=== PATIENT | male | born 1935 | race Caucasian/White ===

== ENCOUNTER 2017-12-21 13:05 | Emergency (ER) | payer MEDICARE, BC ==
[2017-12-21] MEDS ORDERED: Acetaminophen/HYDROcodone 325-5 MG Tab PO ONE (16:01)
--- NOTE | 2017-12-21 16:12 | EDM.PDOC ---
ED HPI GENERAL MEDICAL PROBLEM - General Chief Complaint: Upper Extremity Injury/Pain Stated Complaint: [facility] Time Seen by Provider: 12/21/17 15:00 Source of Information: Reports: Patient History Limitations: Reports: No Limitations - History of Present Illness INITIAL COMMENTS - FREE TEXT/NARRATIVE: 82-year-old male presents for evaluation and treatment of injury sustained from a fall. Patient arrives via EMS. Reportedly the patient fell down about 2 stairs. Landed on his left side. Is primarily complaining of pain to the left shoulder and left hip. He reports he did not hit his head. No headache, neck pain, chest pain, shortness of breath, abdominal pain, lightheadedness, dizziness or syncope. Reporting decreased range of motion to the left shoulder. Reports pain to the left hip. Has not ambulated on his own since the fall. Patient takes an 81mg aspirin daily. No other blood thinners. Onset: Today Location: Reports: Pelvis (left), Upper Extremity, Left Left Shoulder Pain Score (Numeric/FACES): 5 - Related Data Allergies Allergy/AdvReac Type Severity Reaction Status Date / Time morphine Allergy Cannot Verified 12/21/17 13:15 Remember Llkpxka-Acr-Nvq Reductase Allergy Muscle Verified 12/21/17 13:15 Inhibitor Aches Home Meds: Home Meds Acetaminophen/HYDROcodone [[place] 325-5 MG] 1 tab PO Q6H PRN #20 tablet 12/21/17 [Rx] Social & Family History - Caffeine Use Caffeine Use: Reports: Coffee Review of Systems - Review of Systems Review Of Systems: See Below Ears: Denies: Dizziness Respiratory: Denies: Shortness of Breath Cardiovascular: Denies: Chest Pain GI/Abdominal: Denies: Abdominal Pain, Nausea, Vomiting Musculoskeletal: Reports: Shoulder Pain (left), Other (left hip pain). Denies: Neck Pain, Back Pain Neurological: Denies: Headache, Syncope ED EXAM, GENERAL - Physical Exam Exam: See Below Exam Limited By: No Limitations General Appearance: Alert, WD/WN, No Apparent Distress Eye Exam: Bilateral Eye: EOMI, Normal Inspection, PERRL Ears: Normal External Exam Nose: Normal Inspection, No Blood Throat/Mouth: Normal Inspection, Normal Lips, Normal Oropharynx, Normal Voice, No Airway Compromise Head: Atraumatic, Normocephalic Neck: Normal Inspection, Supple, Non-Tender, Full Range of Motion Respiratory/Chest: No Respiratory Distress, Lungs Clear, Normal Breath Sounds, Chest Non-Tender Cardiovascular: Normal Peripheral Pulses, Regular Rate, Rhythm, No Murmur Peripheral Pulses: 2+: Radial (L), Radial (R) GI/Abdominal: Soft, Non-Tender Back Exam: Normal Inspection Extremities: Normal Range of Motion (reduced ROM to the left shuolder; ROM testing deferred due to pain; able to rotate hips without discomfort, no shortenindo the legs) Neurological: Alert, Oriented, Normal Cognition Psychiatric: Normal Affect, Normal Mood Skin Exam: Warm, Dry, Normal Color Course - Vital Signs Last Recorded V/S: Last Vital Signs Temp 97.4 F 12/21/17 13:13 Pulse 57 L 12/21/17 13:13 Resp 16 12/21/17 13:13 BP 125/95 H 12/21/17 13:13 Pulse Ox 96 12/21/17 13:13 - Orders/Labs/Meds Meds: Medications Discontinued Medications Generic Name Dose Route Start Last Admin Trade Name Dillan PRN Reason Stop Dose Admin Hydrocodone Bitart/Acetaminophen 1 tab 12/21/17 16:01 12/21/17 16:10 [place] 325-5 Mg PO 12/21/17 16:02 1 tab ONETIME ONE Administration - Radiology Interpretation Free Text/Narrative:: Head CT Technique: Multiple axial sections through the brain were obtained. Intravenous contrast was not utilized. Comparison: Previous head CT study of 10/18/11. Findings: Low density noted within both frontal regions slightly more prominent on the left side. Ventricles along with basal cisterns and sulci over convexities are mildly prominent. Ventricles are enlarged out of proportion to the sulci which is felt compatible with greater central atrophy. Mild diminished density is noted within portions of the periventricular white matter. No other abnormal parenchymal density is seen. No evidence of intracranial hemorrhage. No midline shift or mass effect is seen. No acute calvarial abnormality is seen. Previous jose hole is noted within the left calvarium. Impression: 1. Areas of low density within both frontal lobes which is an interval change from prior study either due to previous interval infarcts or previous trauma. 2. Generalized atrophy with greater central component. 3. Other senescent change as noted above. 4. No acute intracranial abnormality is identified. Pelvis and left hip: AP view of pelvis was obtained as well as a peak and frog- leg lateral views of the left hip. Joint space within the right hip is slightly narrowed. Joint space within the left hip is preserved. Degenerative change is partially seen within lumbar spine. Sacroiliac joints appear unremarkable. No fracture or other abnormality is seen. Impression: 1. Degenerative change as noted above. 2. Nothing acute is appreciated. Left shoulder: 3 views of left shoulder were obtained. Comparison: No prior shoulder exam. Humeral head is elevated compatible with chronic rotator cuff tear. Inferior spurring is seen off the humeral head. Inferior spurring is noted off the distal clavicle. Nothing acute is seen. Impression: 1. Degenerative change and chronic rotator cuff tear. 2. Nothing acute is seen. - Re-Assessments/Exams Free Text/Narrative Re-Assessment/Exam: 12/21/17 16:36 Reviewed the imaging with the patient. Likely has a rotator cuff tear. Recommend follow-up with ortho for further evaluation. May require an MRI for further evaluation. In the meantime will put in a sling and given medication for pain. Discharge instructions as documented. Departure - Departure Time of Disposition: 16:41 Disposition: Home, Self-Care 01 Condition: Fair Clinical Impression: Rotator cuff tear - Discharge Information *PRESCRIPTION DRUG MONITORING PROGRAM REVIEWED*: No *COPY OF PRESCRIPTION DRUG MONITORING REPORT IN PATIENT EMMETT: No Prescriptions: Acetaminophen/HYDROcodone [[place] 325-5 MG] 1 tab PO Q6H PRN #20 tablet PRN Reason: Pain Instructions: Rotator Cuff Tear Referrals: PCP,None [Ordering Only Provider] - Ezra Del Toro MD [Physician] - Forms: ED Department Discharge Additional Instructions: you were given medication in the ER that can affect your ability to drive and operate machinery. Do not drive or operate machinery within 12 hours of taking prescription narcotic pain medication. Wear the sling at all times. Remove your arm from the sling 3 or 4 times a day and perform pendulum arm circles to prevent frozen shoulder. Ice the shoulder 3 or 4 times a day for 15-20 minutes. You may take [id number] ibuprofen as needed for pain relief. For severe pain may take [place] one tablet every 6 hours. [place] is habit-forming, take as few these as needed to control your pain. Do not drive or operate machinery within 12 hours of taking [place]. Follow-up with Dr. Del Toro. Call [phone] to schedule with him. Please let them know you likely of a rotator cuff tear. Please return to the ER if your symptoms change or worsen.
--- NOTE | 2017-12-21 17:25 | CT ---
Head CT Technique: Multiple axial sections through the brain were obtained. Intravenous contrast was not utilized. Comparison: Previous head CT study of 10/18/11. Findings: Low density is noted within both frontal regions slightly more prominent on the left side. Ventricles along with basal cisterns and sulci over convexities are mildly prominent. Ventricles are enlarged out of proportion to the sulci which is felt compatible with greater central atrophy. Mild diminished density is noted within portions of the periventricular white matter. No other abnormal parenchymal density is seen. No evidence of intracranial hemorrhage. No midline shift or mass effect is seen. No acute calvarial abnormality is seen. Previous jose hole is noted within the left calvarium. Impression: 1. Areas of low density within both frontal lobes which is an interval change from prior study either due to previous interval infarcts or previous trauma. 2. Generalized atrophy with greater central component. 3. Other senescent change as noted above. 4. No acute intracranial abnormality is identified. Diagnostic code #2
--- NOTE | 2017-12-22 07:32 | CR ---
Left shoulder: Three views of left shoulder were obtained. Comparison: No prior shoulder exam. Humeral head is elevated compatible with chronic rotator cuff tear. Inferior spurring is seen off the humeral head. Inferior spurring is noted off the distal clavicle. Nothing acute is seen. Impression: 1. Degenerative change and chronic rotator cuff tear. 2. Nothing acute is seen. Diagnostic code #3
--- NOTE | 2017-12-22 07:32 | CR ---
Pelvis and left hip: AP view of pelvis was obtained as well as a peak and frog-leg lateral views of the left hip. Joint space within the right hip is slightly narrowed. Joint space within the left hip is preserved. Degenerative change is partially seen within lumbar spine. Sacroiliac joints appear unremarkable. No fracture or other abnormality is seen. Impression: 1. Degenerative change as noted above. 2. Nothing acute is appreciated. Diagnostic code #2
== END 2017-12-21 16:56 | disposition home or self-care (01) ==
LOC: JD.ED 13:05
DX: S46.012A Strain of muscle(s) and tendon(s) of the rotator cuff of left shoulder, initial encounter (principal); Z88.5 Allergy status to narcotic agent; Z88.8 Allergy status to other drugs, medicaments and biological substances; W10.9XXA Fall (on) (from) unspecified stairs and steps, initial encounter
CPT/HCPCS: 70450; 73030; 73502; 99284; A9270

== ENCOUNTER 2020-03-19 06:06 | Inpatient (IN) | payer BC, MEDICARE ==
--- NOTE | 2020-03-19 07:14 | EDM.PDOC ---
<Pablito Mcclure - Last Filed: 03/19/20 09:50> ED HPI GENERAL MEDICAL PROBLEM - General Chief Complaint: General Stated Complaint: [facility] Time Seen by Provider: 03/19/20 06:37 - Related Data Allergies Allergy/AdvReac Type Severity Reaction Status Date / Time morphine Allergy Cannot Verified 03/19/20 06:14 Remember [id number] Reductase AdvReac Muscle Verified 03/19/20 12:38 Inhibitor Aches Home Meds: Home Meds Aspirin [[place]one Aspirin] 81 mg PO DAILY 03/19/20 [History] Docusate Sodium [Stool Softener] 100 mg PO BID 03/19/20 [History] Ezetimibe 10 mg PO DAILY 03/19/20 [History] Fenofibrate Nanocrystallized [Fenofibrate] 145 mg PO DAILY 03/19/20 [History] Fluticasone Propionate [Flonase] 50 mcg NS DAILY 03/19/20 [History] Isosorbide Mononitrate 20 mg PO BID 03/19/20 [History] Levothyroxine 112 mcg PO DAILY 03/19/20 [History] Olmesartan Medoxomil 20 mg PO DAILY 03/19/20 [History] Propylene Glycol/PEG 400/Pf [Systane 0.3-0.4% Eye Drop] 1 drop EYEBOTH DAILY 03/19/20 [History] Tamsulosin [Flomax] 0.4 mg PO DAILY 03/19/20 [History] buPROPion HCL [Bupropion HCl Sr] 150 mg PO DAILY 03/19/20 [History] Course - Re-Assessments/Exams Free Text/Narrative Re-Assessment/Exam: 03/19/20 09:[address] Wayne. His CT of his head shows chronic age related and remote ischemic changes but no evidence of acute intracranial pathology. His CXR shows no evidence of acute pulmonary process. His CBC looks good. His D- dimer is elevated at 2.1. His anion gap is elevated at 15.1. His glucose is 127. His troponin is negative. His TSH is normal. His UA shows no UTI. I have ordered a CT angio of his chest. 03/19/20 09:[address] angio of his chest shows no PE and nothing else acute. He needed 2 person assist to get up. He cannot go home like this. He will need to be admitted. I called Dr Ortiz and he agreed to the admission. Departure - Departure Time of Disposition: 09:55 Disposition: Admitted As Inpatient 65 Condition: Fair Clinical Impression: Generalized weakness Falls Qualifiers: Encounter type: initial encounter Qualified Code(s): W19.XXXA - Unspecified fall, initial encounter - Discharge Information <Jewel Wayne - Last Filed: 03/19/20 19:00> ED HPI GENERAL MEDICAL PROBLEM - General Source of Information: Reports: Patient History Limitations: Reports: Physical Impairment (Not entirely sure of his medical issues) - History of Present Illness INITIAL COMMENTS - FREE TEXT/NARRATIVE: Mr. Caldwell is a very pleasant 84-year-old gentleman who is now brought to the ED by EMS with a complaint of increased generalized weakness and multiple falls over the past week. No injury, and the patient denies having any pain. He is not completely aware of his past medical history, referring some questions to his , however, unfortunately, his is not here. The patient states that he has not been taking his Lasix regularly for about a year. He believes that the last time he took it was more than a week ago. Here in the ED, the patient is found to be hemodynamically stable, afebrile, saturating 94% on room air. Orthostatics obtained at triage are negative. The patient reports an occasional dry cough, but otherwise he denies having a recent fever, chills, sore throat, ear pain, nasal or sinus congestion, dyspnea, chest pain, palpitations, nausea, vomiting, constipation, diarrhea, abdominal pain, urinary symptoms, recent weight gain or weight loss, recent bloody bowel movements or black bowel movements, recent joint aches, headaches, or rashes. The patient's PCP is Dr. Krista Larose. His Cardiovascular Surgeon is Dr. Stevenson Parmar. Past Medical History HEENT History: Reports: Impaired Vision Cardiovascular History: Reports: Aneurysm (cerebral - inoperable), CAD, Heart Failure, High Cholesterol, Hypertension, LA (x 1) Respiratory History: Reports: COPD (PFT-proven, untreated) Genitourinary History: Reports: BPH Psychiatric History: Reports: Depression Endocrine/Metabolic History: Reports: Hypothyroidism, Other (See Below) (Pre- diabetes) - Past Surgical History HEENT Surgical History: Reports: Cataract Surgery (bilateral), Oral Surgery (dental extractions) Cardiovascular Surgical History: Reports: Coronary Artery Bypass (x 2 vessel, around 1999), Pacer (2019) Musculoskeletal Surgical History: Reports: Shoulder Surgery (right, open) Social & Family History - Tobacco Use Smoking Status *Q: Former Smoker Years of Tobacco use: 10 Packs/Tins Daily: 1 Month/Year Tobacco Last Used: Quit 1957 - Caffeine Use Caffeine Use: Reports: Coffee - Alcohol Use Alcohol Use History: Yes Alcohol Use Frequency: Socially - Recreational Drug Use Recreational Drug Use: No - Living Situation & Occupation Living situation: Reports: , with Spouse Occupation: Retired ED ROS GENERAL - Review of Systems Review Of Systems: Comprehensive ROS is negative, except as noted in HPI. ED EXAM, GENERAL - Physical Exam Exam: See Below Exam Limited By: Physical Impairment (some confusion in following neuro exam instructions) General Appearance: Alert, WD/WN, No Apparent Distress Eye Exam: Bilateral Eye: EOMI, Normal Inspection (s/p cataract surgery) Ears: Normal External Exam, Hearing Loss (mild) Nose: Normal Inspection Throat/Mouth: Normal Inspection, Normal Lips, Normal Voice, No Airway Compromise Head: Atraumatic, Normocephalic Neck: Normal Inspection, Full Range of Motion Respiratory/Chest: No Respiratory Distress, Lungs Clear, Normal Breath Sounds, No Accessory Muscle Use Cardiovascular: Normal Peripheral Pulses, Regular Rate, Rhythm, No Edema, No Gallop, No JVD, No Murmur, No Rub Peripheral Pulses: 3+: Radial (L), Radial (R) GI/Abdominal: Normal Bowel Sounds, Soft, Non-Tender, No Organomegaly, No Distention, No Abnormal Bruit, No Mass Back Exam: Normal Inspection, Full Range of Motion, NT Extremities: Normal Range of Motion, Normal Capillary Refill, Other (Hyperpigmentation of both legs, distant with chronic venous stasis changes, but no current edema) Neurological: Alert, Oriented, CN II-XII Intact, No Motor/Sensory Deficits (mild generalized non-focal weakness), Confused (mild) Psychiatric: Normal Affect Skin Exam: Warm, Dry, Intact, Normal Color, No Rash EKG INTERPRETATION EKG Date: 03/19/20 Time: 06:27 Rhythm: Other (A-V paced) Rate (Beats/Min): 62 Comparison: NA - No Prior EKG Course - Vital Signs Last Recorded V/S: Last Vital Signs Temp 36.7 C 03/19/20 11:43 Pulse 62 03/19/20 11:43 Resp 18 03/19/20 11:43 BP 132/61 03/19/20 11:43 Pulse Ox 97 03/19/20 11:43 Orthostatic Blood Pressure [ 80/51 Standing] Orthostatic Blood Pressure [ 97/58 Supine] - Orders/Labs/Meds Orders: Active Orders 24 hr Category Date Time Status Ang Chest [CT] Stat Exams 03/19/20 08:51 Taken Chest 2V [CR] Stat Exams 03/19/20 07:05 Taken Head wo Cont [CT] Stat Exams 03/19/20 07:04 Taken CULTURE BLOOD [BC] Stat Lab 03/19/20 07:39 Received CULTURE BLOOD [BC] Stat Lab 03/19/20 07:49 Received Sodium Chloride 0.9% [Saline Flush] Med 03/19/20 08:55 Active 10 ml FLUSH ONETIME PRN Blood Culture x2 Reflex Set [OM.PC] Stat Oth 03/19/20 07:08 Ordered Medication Orders Acetaminophen (Tylenol) 650 mg PO Q4H PRN PRN Reason: Pain (Mild 1-3)/fever Artificial Tears (Refresh Liquigel 1%) 0 ml EYEBOTH DAILY [facility] Aspirin (Aspirin) 81 mg PO DAILY [facility] Bupropion HCl (Wellbutrin Sr) 150 mg PO DAILY [facility] Docusate Sodium (Colace) 100 mg PO BID [facility] Ezetimibe (Zetia) 10 mg PO DAILY [facility] Enoxaparin Sodium (Lovenox) 40 mg SUBCUT DAILY [facility] Fenofibrate (Tricor) 145 mg PO DAILY [facility] Fluticasone Propionate (Flonase) 0 gm NASBOTH DAILY [facility] Levothyroxine Sodium (Levothyroxine) 112 mcg PO ACBREAKFAST [facility] Losartan Potassium (Cozaar) 50 mg PO DAILY [facility] Ondansetron HCl (Zofran) 4 mg IV Q6H PRN PRN Reason: Nausea/Vomiting Isosorbide (Mononitrate 20 Mg) 0 each PO BID [facility] Sodium Chloride (Saline Flush) 10 ml FLUSH ONETIME PRN PRN Reason: IV FLUSH Last Admin: 03/19/20 09:02 Dose: 10 ml Documented by: IVY Tamsulosin HCl (Flomax) 0.4 mg PO DAILY [facility] Labs: Laboratory Tests 03/19/20 03/19/20 03/19/20 Range/Units 06:35 06:35 07:39 WBC 6.16 (4.23-9.07) K/mm3 RBC 5.21 (4.63-6.08) M/mm3 Hgb 15.0 (13.7-17.5) gm/dl Hct 45.5 (40.1-51.0) % MCV 87.3 (79.0-92.2) fl MCH 28.8 (25.7-32.2) pg MCHC 33.0 (32.2-35.5) g/dl RDW Std Deviation 46.5 H (35.1-43.9) fL Plt Count 170 (163-337) K/mm3 MPV 8.9 L (9.4-12.3) fl Neutrophils % (Manual) 63 H (40-60) % Band Neutrophils % 0 (0-10) % Lymphocytes % (Manual) 25 (20-40) % Atypical Lymphs % 0 % Monocytes % (Manual) 11 H (2-10) % Eosinophils % (Manual) 1 (0.8-7.0) % Basophils % (Manual) 0 L (0.2-1.2) Platelet Estimate Adequate RBC Morph Comment Normal D-Dimer, Quantitative (0.19-0.50) mg/L Sodium (136-145) mEq/L Potassium (3.5-5.1) mEq/L Chloride (98-107) mEq/L Carbon Dioxide (21-32) mEq/L Anion Gap (5-15) BUN (7-18) mg/dL Creatinine (0.7-1.3) mg/dL Est Cr Clr Drug Dosing Estimated GFR (MDRD) (>60) mL/min BUN/Creatinine Ratio (14-18) Glucose (83-115) mg/dL Hemoglobin A1c (4.50-6.20) % Calcium (8.5-10.1) mg/dL Phosphorus 3.0 (2.6-4.7) mg/dL Magnesium (1.8-2.4) mg/dl Total Bilirubin (0.2-1.0) mg/dL AST (15-37) U/L ALT (16-63) U/L Alkaline Phosphatase (46-116) U/L Troponin I (0.00-0.056) ng/mL C-Reactive Protein 0.4 (<1.0) mg/dL Total Protein (6.4-8.2) g/dl Albumin (3.4-5.0) g/dl Globulin gm/dL Albumin/Globulin Ratio (1-2) Vitamin B12 334 (193-986) pg/ml Vitamin D 25-Hydroxy 27.9 L (30.0-100.0) ng/ml Folate 20.8 (8.6-58.9) ng/mL TSH 3rd Generation (0.358-3.74) uIU/mL Urine Color (Yellow) Urine Appearance (Clear) Urine pH (5.0-8.0) Ur Specific Hallock (1.005-1.030) Urine Protein (Negative) Urine Glucose (UA) (Negative) Urine Ketones (Negative) Urine Occult Blood (Negative) Urine Nitrite (Negative) Urine Bilirubin (Negative) Urine Urobilinogen (0.2-1.0) Ur Leukocyte Esterase (Negative) Urine RBC (0-5) /hpf Urine WBC (0-5) /hpf Ur Squamous Epith Cells (0-5) /hpf Urine Bacteria (FEW) /hpf Urine Mucus (FEW) /hpf SARS-CoV-2 RNA (OSMAR) (NEGATIVE) 03/19/20 03/19/20 03/19/20 Range/Units 07:39 07:39 07:39 WBC (4.23-9.07) K/mm3 RBC (4.63-6.08) M/mm3 Hgb (13.7-17.5) gm/dl Hct (40.1-51.0) % MCV (79.0-92.2) fl MCH (25.7-32.2) pg MCHC (32.2-35.5) g/dl RDW Std Deviation (35.1-43.9) fL Plt Count (163-337) K/mm3 MPV (9.4-12.3) fl Neutrophils % (Manual) (40-60) % Band Neutrophils % (0-10) % Lymphocytes % (Manual) (20-40) % Atypical Lymphs % % Monocytes % (Manual) (2-10) % Eosinophils % (Manual) (0.8-7.0) % Basophils % (Manual) (0.2-1.2) Platelet Estimate RBC Morph Comment D-Dimer, Quantitative 2.10 H (0.19-0.50) mg/L Sodium 136 (136-145) mEq/L Potassium 4.1 (3.5-5.1) mEq/L Chloride 102 (98-107) mEq/L Carbon Dioxide 23 (21-32) mEq/L Anion Gap 15.1 H (5-15) BUN 18 (7-18) mg/dL Creatinine 1.3 (0.7-1.3) mg/dL Est Cr Clr Drug Dosing TNP Estimated GFR (MDRD) 52 (>60) mL/min BUN/Creatinine Ratio 13.8 L (14-18) Glucose 127 H (83-115) mg/dL Hemoglobin A1c 6.00 (4.50-6.20) % Calcium 9.8 (8.5-10.1) mg/dL Phosphorus (2.6-4.7) mg/dL Magnesium 2.0 (1.8-2.4) mg/dl Total Bilirubin 0.8 (0.2-1.0) mg/dL AST 27 (15-37) U/L ALT 24 (16-63) U/L Alkaline Phosphatase 57 (46-116) U/L Troponin I 0.055 (0.00-0.056) ng/mL C-Reactive Protein (<1.0) mg/dL Total Protein 6.9 (6.4-8.2) g/dl Albumin 3.5 (3.4-5.0) g/dl Globulin 3.4 gm/dL Albumin/Globulin Ratio 1.0 (1-2) Vitamin B12 (193-986) pg/ml Vitamin D 25-Hydroxy (30.0-100.0) ng/ml Folate (8.6-58.9) ng/mL TSH 3rd Generation 1.778 (0.358-3.74) uIU/mL Urine Color (Yellow) Urine Appearance (Clear) Urine pH (5.0-8.0) Ur Specific Hallock (1.005-1.030) Urine Protein (Negative) Urine Glucose (UA) (Negative) Urine Ketones (Negative) Urine Occult Blood (Negative) Urine Nitrite (Negative) Urine Bilirubin (Negative) Urine Urobilinogen (0.2-1.0) Ur Leukocyte Esterase (Negative) Urine RBC (0-5) /hpf Urine WBC (0-5) /hpf Ur Squamous Epith Cells (0-5) /hpf Urine Bacteria (FEW) /hpf Urine Mucus (FEW) /hpf SARS-CoV-2 RNA (OSMAR) (NEGATIVE) 03/19/20 03/19/20 Range/Units 08:15 08:30 WBC (4.23-9.07) K/mm3 RBC (4.63-6.08) M/mm3 Hgb (13.7-17.5) gm/dl Hct (40.1-51.0) % MCV (79.0-92.2) fl MCH (25.7-32.2) pg MCHC (32.2-35.5) g/dl RDW Std Deviation (35.1-43.9) fL Plt Count (163-337) K/mm3 MPV (9.4-12.3) fl Neutrophils % (Manual) (40-60) % Band Neutrophils % (0-10) % Lymphocytes % (Manual) (20-40) % Atypical Lymphs % % Monocytes % (Manual) (2-10) % Eosinophils % (Manual) (0.8-7.0) % Basophils % (Manual) (0.2-1.2) Platelet Estimate RBC Morph Comment D-Dimer, Quantitative (0.19-0.50) mg/L Sodium (136-145) mEq/L Potassium (3.5-5.1) mEq/L Chloride (98-107) mEq/L Carbon Dioxide (21-32) mEq/L Anion Gap (5-15) BUN (7-18) mg/dL Creatinine (0.7-1.3) mg/dL Est Cr Clr Drug Dosing Estimated GFR (MDRD) (>60) mL/min BUN/Creatinine Ratio (14-18) Glucose (83-115) mg/dL Hemoglobin A1c (4.50-6.20) % Calcium (8.5-10.1) mg/dL Phosphorus (2.6-4.7) mg/dL Magnesium (1.8-2.4) mg/dl Total Bilirubin (0.2-1.0) mg/dL AST (15-37) U/L ALT (16-63) U/L Alkaline Phosphatase (46-116) U/L Troponin I (0.00-0.056) ng/mL C-Reactive Protein (<1.0) mg/dL Total Protein (6.4-8.2) g/dl Albumin (3.4-5.0) g/dl Globulin gm/dL Albumin/Globulin Ratio (1-2) Vitamin B12 (193-986) pg/ml Vitamin D 25-Hydroxy (30.0-100.0) ng/ml Folate (8.6-58.9) ng/mL TSH 3rd Generation (0.358-3.74) uIU/mL Urine Color Yellow (Yellow) Urine Appearance Clear (Clear) Urine pH 6.0 (5.0-8.0) Ur Specific Hallock 1.025 (1.005-1.030) Urine Protein Negative (Negative) Urine Glucose (UA) Negative (Negative) Urine Ketones Negative (Negative) Urine Occult Blood Negative (Negative) Urine Nitrite Negative (Negative) Urine Bilirubin Negative (Negative) Urine Urobilinogen 0.2 (0.2-1.0) Ur Leukocyte Esterase Negative (Negative) Urine RBC 0-5 (0-5) /hpf Urine WBC 0-5 (0-5) /hpf Ur Squamous Epith Cells 0-5 (0-5) /hpf Urine Bacteria Few (FEW) /hpf Urine Mucus Few (FEW) /hpf SARS-CoV-2 RNA (OSMAR) Negative (NEGATIVE) Meds: Medications Generic Name Dose Route Start Last Admin Trade Name Freq PRN Reason Stop Dose Admin Acetaminophen 650 mg 03/19/20 10:52 Tylenol PO Q4H PRN Pain (Mild 1-3)/fever Artificial Tears 0 ml 03/20/20 09:00 Refresh Liquigel 1% EYEBOTH DAILY [facility] Aspirin 81 mg 03/20/20 09:00 Aspirin PO DAILY [facility] Bupropion HCl 150 mg 03/20/20 09:00 Wellbutrin Sr PO DAILY [facility] Docusate Sodium 100 mg 03/19/20 21:00 Colace PO BID [facility] Ezetimibe 10 mg 03/20/20 09:00 Zetia PO DAILY [facility] Enoxaparin Sodium 40 mg 03/20/20 09:00 Lovenox SUBCUT DAILY [facility] Fenofibrate 145 mg 03/20/20 09:00 Tricor PO DAILY [facility] Fluticasone Propionate 0 gm 03/20/20 09:00 Flonase NASBOTH DAILY [facility] Levothyroxine Sodium 112 mcg 03/20/20 06:00 Levothyroxine PO ACBREAKFAST [facility] Losartan Potassium 50 mg 03/20/20 09:00 Cozaar PO DAILY [facility] Ondansetron HCl 4 mg 03/19/20 10:52 Zofran IV Q6H PRN Nausea/Vomiting Isosorbide 0 each 03/19/20 21:00 Mononitrate 20 Mg PO BID [facility] Sodium Chloride 10 ml 03/19/20 08:55 03/19/20 09:02 Saline Flush FLUSH 10 ml ONETIME PRN Administration IV FLUSH Tamsulosin HCl 0.4 mg 03/20/20 09:00 Flomax PO DAILY [facility] Discontinued Medications Generic Name Dose Route Start Last Admin Trade Name Freq PRN Reason Stop Dose Admin Sodium Chloride 100 mls @ 75 mls/hr 03/19/20 09:00 03/19/20 09:02 Normal Saline IV 75 mls/hr ASDIRECTED [facility] Administration Iopamidol 50 ml 03/19/20 08:55 03/19/20 09:02 Isovue-370 (76%) IVPUSH 03/19/20 08:56 50 ml ONETIME ONE Administration Iopamidol 100 ml 03/19/20 08:55 03/19/20 09:02 Isovue-370 (76%) IVPUSH 03/19/20 08:56 100 ml ONETIME ONE Administration - Re-Assessments/Exams Free Text/Narrative Re-Assessment/Exam: 03/19/20 07:10 As above, the patient has been experiencing increased generalized weakness and multiple falls without injury over the past week. No recent fever, chest pain, dyspnea, abdominal pain, or urinary symptoms. He is hemodynamically stable, afe brile, saturating 94% on room air here in the ED. Orthostatics at triage were negative. An ECG at triage finds a dual chamber pacer, and is otherwise uninterpretable. On physical exam, the patient has some confusion in following his neurologic exam, and while he does have some generalized weakness, there are no focal neurologic weaknesses. His exam is otherwise unremarkable. I have ordered a work-up that include blood work, 2 sets of blood cultures, a urinalysis with postvoid bladder scan, a chest x-ray, a CT of the head without contrast, and a swab for the SARS-CoV-2 virus. 03/19/20 07:[address] Mcclure, and care of the patient turned over to him at this time, for change of shift. Departure - Discharge Information *PRESCRIPTION DRUG MONITORING PROGRAM REVIEWED*: Not Applicable *COPY OF PRESCRIPTION DRUG MONITORING REPORT IN PATIENT EMMETT: Not Applicable Sepsis Event Note (ED) - Evaluation Sepsis Screening Result: No Definite Risk - My Orders Last 24 Hours: My Active Orders 03/19/20 07:04 Head wo Cont [CT] Stat 03/19/20 07:05 Chest 2V [CR] Stat 03/19/20 07:08 Blood Culture x2 Reflex Set [OM.PC] Stat 03/19/20 07:39 CULTURE BLOOD [BC] Stat 03/19/20 07:49 CULTURE BLOOD [BC] Stat 03/19/20 08:55 Sodium Chloride 0.9% [Saline Flush] 10 ml FLUSH ONETIME PRN - Assessment/Plan Last 24 Hours: My Active Orders 03/19/20 07:04 Head wo Cont [CT] Stat 03/19/20 07:05 Chest 2V [CR] Stat 03/19/20 07:08 Blood Culture x2 Reflex Set [OM.PC] Stat 03/19/20 07:39 CULTURE BLOOD [BC] Stat 03/19/20 07:49 CULTURE BLOOD [BC] Stat 03/19/20 08:55 Sodium Chloride 0.9% [Saline Flush] 10 ml FLUSH ONETIME PRN
[2020-03-19] MEDS ORDERED: Sodium Chloride 0.9% 10 ML Syringe FLUSH PRN (08:55)
[2020-03-19] MEDS ORDERED: Iopamidol 755 Mg/ML 100 ML Bottle IVPUSH ONE (08:55)
[2020-03-19] MEDS ORDERED: Iopamidol 755 MG/ML 50 ML Bottle IVPUSH ONE (08:55)
[2020-03-19] MEDS ORDERED: Sodium Chloride 0.9% 100 ML IV SCH (09:00)
[2020-03-19] MEDS ORDERED: Ondansetron 4 MG/2 ML SDV IV PRN (10:52)
--- NOTE | 2020-03-19 10:56 | PCM.HP.2 ---
H&P History of Present Illness - General Date of Service: 03/19/20 Admit Problem/Dx: Admission Diagnosis/Problem Admission Diagnosis/Problem Failure to thrive Source of Information: Patient, Provider, RN, RN Notes Reviewed, Significant Other History Limitations: Reports: No Limitations - History of Present Illness Initial Comments - Free Text/Narative: Patient is an 84 yo male who presented to our ED on 03/19/2020 via ambulance with increasing generalized weakness and multiple falls. He denies any injuries due to these falls or any pain. He is a poor historian and does admit that he has not been taking his medications as he should. In the ED he is hemodynamically stable, afebrile, and saturations are 94% on room air. Orthostatics are obtained and are negative. He does report an occasional dry cough but otherwise denies any recent fever, chills, sore throat, ear pain, congestion, dyspnea, chest pain, palpitations, nausea, vomiting constipation, diarrhea, abdominal pain, urinary symptoms, recent weight gain or weight loss, recent hematochezia, recent melena, joint aches, headaches, or rashes. In the ED twelve-lead EKG is obtained showing AV paced rhythm at 62 bpm. Patient reports that he recently had his pacemaker placed. He is afebrile at 97.7 Fahrenheit. Pulse 65. Respirations 16. Blood pressure 112/73. Pulse ox 94%. CBC is obtained and is grossly normal, CMP is obtained and is grossly normal. Troponin is negative at 0.055. TSH is 1.778. UA is negative. SARS-CoV-2 screen is negative. Blood cultures obtained and are pending. He started on NS at 75 mils an hour. D-dimer is obtained and is elevated at 2.1. PA of the chest is obtained and shows no PA and nothing acute. Attempted to get the patient up and he was requiring 2 people to assist. It is felt he will need to be placed for SNF care. He carries a history of impaired vision ( reports he is legally blind) inoperable cerebral aneurysm, CAD, CHF, HLD, hypertension, prior OR, untreated COPD, BPH, depression, hypothyroidism, "prediabetes". He is a prior smoker. His PCP is Dr. Larose. His cardiovascular surgeon is Dr. Parmar. - Related Data Allergies/Adverse Reactions: Allergies Allergy/AdvReac Type Severity Reaction Status Date / Time morphine Allergy Cannot Verified 03/19/20 06:14 Remember Vvpittl-Acv-Vnt Reductase AdvReac Muscle Verified 03/19/20 12:38 Inhibitor Aches Home Medications: Home Meds Aspirin [Butler Aspirin] 81 mg PO DAILY 03/19/20 [History] Docusate Sodium [Stool Softener] 100 mg PO BID 03/19/20 [History] Ezetimibe 10 mg PO DAILY 03/19/20 [History] Fenofibrate Nanocrystallized [Fenofibrate] 145 mg PO DAILY 03/19/20 [History] Fluticasone Propionate [Flonase] 50 mcg NS DAILY 03/19/20 [History] Isosorbide Mononitrate 20 mg PO BID 03/19/20 [History] Levothyroxine 112 mcg PO DAILY 03/19/20 [History] Olmesartan Medoxomil 20 mg PO DAILY 03/19/20 [History] Propylene Glycol/PEG 400/Pf [Systane 0.3-0.4% Eye Drop] 1 drop EYEBOTH DAILY 03/19/20 [History] Tamsulosin [Flomax] 0.4 mg PO DAILY 03/19/20 [History] buPROPion HCL [Bupropion HCl Sr] 150 mg PO DAILY 03/19/20 [History] Past Medical History HEENT History: Reports: Impaired Vision Other HEENT History: dry eyes Cardiovascular History: Reports: Aneurysm (cerebral - inoperable), CAD, Heart Failure, High Cholesterol, Hypertension, OR (x 1) Respiratory History: Reports: COPD (PFT-proven, untreated) Genitourinary History: Reports: BPH Psychiatric History: Reports: Depression Endocrine/Metabolic History: Reports: Hypothyroidism, Other (See Below) (Pre- diabetes) - Past Surgical History HEENT Surgical History: Reports: Cataract Surgery (bilateral), Oral Surgery (dental extractions) Cardiovascular Surgical History: Reports: Coronary Artery Bypass (x 2 vessel, around 1999), Pacer (2019) Musculoskeletal Surgical History: Reports: Shoulder Surgery (right, open) Social & Family History - Tobacco Use Smoking Status *Q: Former Smoker Years of Tobacco use: 10 Packs/Tins Daily: 1 Used Tobacco, but Quit: Yes Month/Year Tobacco Last Used: Quit 1957 - Caffeine Use Caffeine Use: Reports: Coffee - Recreational Drug Use Recreational Drug Use: No - Living Situation & Occupation Living situation: Reports: , with Spouse Occupation: Retired H&P Review of Systems - Review of Systems: Review Of Systems: See Below General: Reports: Weakness. Denies: Fever, Chills, Malaise, Fatigue HEENT: Reports: No Symptoms. Denies: Headaches, Sore Throat Pulmonary: Reports: Cough (occasional ). Denies: Shortness of Breath, Wheezing, Pleuritic Chest Pain, Sputum Cardiovascular: Reports: No Symptoms. Denies: Chest Pain, Palpitations, Dyspnea on Exertion, Orthopnea, Edema Gastrointestinal: Reports: No Symptoms. Denies: Abdominal Pain, Constipation, Diarrhea, Nausea, Vomiting Genitourinary: Reports: No Symptoms. Denies: Pain Musculoskeletal: Reports: No Symptoms Skin: Reports: No Symptoms. Denies: Cyanosis Psychiatric: Reports: Confusion (Has some difficulty with memory and recent events ) Neurological: Reports: Difficulty Walking, Gait Disturbance. Denies: Dizziness, Headache, Numbness, Paresthesia, Seizure, Syncope, Tingling, Tremors, Trouble Speaking, Weakness, Change in Speech Hematologic/Lymphatic: Reports: No Symptoms Immunologic: Reports: No Symptoms Exam - Exam Exam: See Below - Vital Signs Vital Signs: Last Vital Signs Temp 97.7 F 03/19/20 06:11 Pulse 65 03/19/20 06:11 Resp 16 03/19/20 06:11 BP 112/73 03/19/20 06:11 Pulse Ox 94 L 03/19/20 06:11 Weight: 235 lb - Exam Quality Assessment: DVT Prophylaxis. No: Supplemental Oxygen, Urinary Catheter General: Alert, Oriented (mostly ), Cooperative. No: Mild Distress HEENT: Conjunctiva Clear, EACs Clear, Hearing Intact (although somewhat hard of hearing ), Mucosa Moist & [place], Posterior Pharynx Clear, PERRLA. No: EOMI (Patient is legally blind and reports tihs is baseline for him) Neck: Supple, Trachea Midline Lungs: Clear to Auscultation, Normal Respiratory Effort Cardiovascular: Regular Rate, Regular Rhythm GI/Abdominal Exam: Normal Bowel Sounds, Soft, Non-Tender, No Distention Rectal (Males) Exam: Deferred Back Exam: Normal Inspection, Full Range of Motion Extremities: Normal Range of Motion, Non-Tender, No Pedal Edema, Normal Capillary Refill, Other (Bilateral lower extremity discoloration consistent with PVD) Skin: Warm, Dry, Intact Neurological: Cranial Nerves Intact, Strength Equal Bilateral, Normal Speech, Normal Tone, Sensation Intact. No: Focal Deficit Neuro Extensive - Motor, Sensory, Reflexes: CN II-XII Intact, Abnormal Finger to Nose (Patient is baseline legally blind and per this is normal for him). No: Ataxia, Tongue Deviation (L), Tongue Deviation (R), Dysarthria, Receptive Aphasia, Expressive Aphasia, Total Aphasia, Facial palsy (L), Facial Palsy (R), Facial Palsy w Forehead, Facial Palsy wo Forehead, Hemeplagia (R), Hemeplagia (L), Pronator Drift (R), Pronator Drift (L), Abnormal Sensation, Tremor, Motor/Sensory Deficits Psychiatric: Alert - Patient Data Lab Results Last 24 hrs: Laboratory Results - last 24 hr 03/19/20 03/19/20 03/19/20 Range/Units 07:39 07:39 07:39 WBC 6.16 (4.23-9.07) K/mm3 RBC 5.21 (4.63-6.08) M/mm3 Hgb 15.0 (13.7-17.5) gm/dl Hct 45.5 (40.1-51.0) % MCV 87.3 (79.0-92.2) fl MCH 28.8 (25.7-32.2) pg MCHC 33.0 (32.2-35.5) g/dl RDW Std Deviation 46.5 H (35.1-43.9) fL Plt Count 170 (163-337) K/mm3 MPV 8.9 L (9.4-12.3) fl Neutrophils % (Manual) 63 H (40-60) % Band Neutrophils % 0 (0-10) % Lymphocytes % (Manual) 25 (20-40) % Atypical Lymphs % 0 % Monocytes % (Manual) 11 H (2-10) % Eosinophils % (Manual) 1 (0.8-7.0) % Basophils % (Manual) 0 L (0.2-1.2) Platelet Estimate Adequate RBC Morph Comment Normal D-Dimer, Quantitative 2.10 H (0.19-0.50) mg/L Sodium 136 (136-145) mEq/L Potassium 4.1 (3.5-5.1) mEq/L Chloride 102 (98-107) mEq/L Carbon Dioxide 23 (21-32) mEq/L Anion Gap 15.1 H (5-15) BUN 18 (7-18) mg/dL Creatinine 1.3 (0.7-1.3) mg/dL Est Cr Clr Drug Dosing TNP Estimated GFR (MDRD) 52 (>60) mL/min BUN/Creatinine Ratio 13.8 L (14-18) Glucose 127 H (83-115) mg/dL Calcium 9.8 (8.5-10.1) mg/dL Magnesium 2.0 (1.8-2.4) mg/dl Total Bilirubin 0.8 (0.2-1.0) mg/dL AST 27 (15-37) U/L ALT 24 (16-63) U/L Alkaline Phosphatase 57 (46-116) U/L Troponin I 0.055 (0.00-0.056) ng/mL Total Protein 6.9 (6.4-8.2) g/dl Albumin 3.5 (3.4-5.0) g/dl Globulin 3.4 gm/dL Albumin/Globulin Ratio 1.0 (1-2) TSH 3rd Generation 1.778 (0.358-3.74) uIU/mL Urine Color (Yellow) Urine Appearance (Clear) Urine pH (5.0-8.0) Ur Specific [place] (1.005-1.030) Urine Protein (Negative) Urine Glucose (UA) (Negative) Urine Ketones (Negative) Urine Occult Blood (Negative) Urine Nitrite (Negative) Urine Bilirubin (Negative) Urine Urobilinogen (0.2-1.0) Ur Leukocyte Esterase (Negative) Urine RBC (0-5) /hpf Urine WBC (0-5) /hpf Ur Squamous Epith Cells (0-5) /hpf Urine Bacteria (FEW) /hpf Urine Mucus (FEW) /hpf SARS-CoV-2 RNA (OSMAR) (NEGATIVE) 03/19/20 03/19/20 Range/Units 08:15 08:30 WBC (4.23-9.07) K/mm3 RBC (4.63-6.08) M/mm3 Hgb (13.7-17.5) gm/dl Hct (40.1-51.0) % MCV (79.0-92.2) fl MCH (25.7-32.2) pg MCHC (32.2-35.5) g/dl RDW Std Deviation (35.1-43.9) fL Plt Count (163-337) K/mm3 MPV (9.4-12.3) fl Neutrophils % (Manual) (40-60) % Band Neutrophils % (0-10) % Lymphocytes % (Manual) (20-40) % Atypical Lymphs % % Monocytes % (Manual) (2-10) % Eosinophils % (Manual) (0.8-7.0) % Basophils % (Manual) (0.2-1.2) Platelet Estimate RBC Morph Comment D-Dimer, Quantitative (0.19-0.50) mg/L Sodium (136-145) mEq/L Potassium (3.5-5.1) mEq/L Chloride (98-107) mEq/L Carbon Dioxide (21-32) mEq/L Anion Gap (5-15) BUN (7-18) mg/dL Creatinine (0.7-1.3) mg/dL Est Cr Clr Drug Dosing Estimated GFR (MDRD) (>60) mL/min BUN/Creatinine Ratio (14-18) Glucose (83-115) mg/dL Calcium (8.5-10.1) mg/dL Magnesium (1.8-2.4) mg/dl Total Bilirubin (0.2-1.0) mg/dL AST (15-37) U/L ALT (16-63) U/L Alkaline Phosphatase (46-116) U/L Troponin I (0.00-0.056) ng/mL Total Protein (6.4-8.2) g/dl Albumin (3.4-5.0) g/dl Globulin gm/dL Albumin/Globulin Ratio (1-2) TSH 3rd Generation (0.358-3.74) uIU/mL Urine Color Yellow (Yellow) Urine Appearance Clear (Clear) Urine pH 6.0 (5.0-8.0) Ur Specific [place] 1.025 (1.005-1.030) Urine Protein Negative (Negative) Urine Glucose (UA) Negative (Negative) Urine Ketones Negative (Negative) Urine Occult Blood Negative (Negative) Urine Nitrite Negative (Negative) Urine Bilirubin Negative (Negative) Urine Urobilinogen 0.2 (0.2-1.0) Ur Leukocyte Esterase Negative (Negative) Urine RBC 0-5 (0-5) /hpf Urine WBC 0-5 (0-5) /hpf Ur Squamous Epith Cells 0-5 (0-5) /hpf Urine Bacteria Few (FEW) /hpf Urine Mucus Few (FEW) /hpf SARS-CoV-2 RNA (OSMAR) Negative (NEGATIVE) Result Diagrams: 03/19/20 07:39 03/19/20 07:39 Sepsis Event Note - Evaluation Sepsis Screening Result: No Definite Risk - Problem List (1) S/P placement of cardiac pacemaker SNOMED Code(s): 887674422, 337041750, 660527684 ICD Code: Z95.0 - PRESENCE OF CARDIAC PACEMAKER Status: Chronic Priority: Low Current Visit: No (2) Hospital admission due to social situation SNOMED Code(s): 035027221 ICD Code: Z60.9 - PROBLEM RELATED TO SOCIAL ENVIRONMENT, UNSPECIFIED Status: Acute Priority: High Current Visit: Yes (3) Cerebral aneurysm SNOMED Code(s): 692295960 ICD Code: I67.1 - CEREBRAL ANEURYSM, NONRUPTURED Status: Chronic Priority: Low Current Visit: No (4) CAD (coronary artery disease) SNOMED Code(s): 70899521 ICD Code: I25.10 - ATHSCL HEART DISEASE OF [place] CORONARY ARTERY W/O ANG PCTRS Status: Chronic Priority: Low Current Visit: No Qualifiers: Coronary Disease-Associated Artery/Lesion type: bypass graft [place] vs. transplanted heart: [place] heart Associated angina: angina presence unspecified Qualified Code(s): I25.810 - Atherosclerosis of coronary artery bypass graft(s) without angina pectoris (5) Heart failure SNOMED Code(s): 04506236 ICD Code: I50.9 - HEART FAILURE, UNSPECIFIED Status: Chronic Priority: Low Current Visit: No Qualifiers: Heart failure type: unspecified Heart failure chronicity: unspecified Qualified Code(s): I50.9 - Heart failure, unspecified (6) HLD (hyperlipidemia) SNOMED Code(s): 67164516 ICD Code: E78.5 - HYPERLIPIDEMIA, UNSPECIFIED Status: Chronic Priority: Low Current Visit: No Qualifiers: Hyperlipidemia type: unspecified Qualified Code(s): E78.5 - Hyperlipidemia, unspecified (7) HTN (hypertension) SNOMED Code(s): 30245274 ICD Code: I10 - ESSENTIAL (PRIMARY) HYPERTENSION Status: Chronic Priority: Low Current Visit: No Qualifiers: Hypertension type: unspecified Qualified Code(s): I10 - Essential (primary) hypertension (8) History of OR (myocardial infarction) SNOMED Code(s): 579375008 ICD Code: I25.2 - OLD MYOCARDIAL INFARCTION Status: Chronic Priority: Low Current Visit: No (9) COPD (chronic obstructive pulmonary disease) SNOMED Code(s): 14009025 ICD Code: J44.9 - CHRONIC OBSTRUCTIVE PULMONARY DISEASE, UNSPECIFIED Status: Chronic Priority: Low Current Visit: No Qualifiers: COPD type: unspecified COPD Qualified Code(s): J44.9 - Chronic obstructive pulmonary disease, unspecified (10) BPH (benign prostatic hyperplasia) SNOMED Code(s): 325762434 ICD Code: N40.0 - BENIGN PROSTATIC HYPERPLASIA WITHOUT LOWER URINRY TRACT SYMP Status: Chronic Priority: Low Current Visit: No Qualifiers: Lower urinary tract symptom presence: symptoms absent Qualified Code(s): N40.0 - Benign prostatic hyperplasia without lower urinary tract symptoms (11) Depression SNOMED Code(s): 23126402 ICD Code: F32.9 - MAJOR DEPRESSIVE DISORDER, SINGLE EPISODE, UNSPECIFIED Status: Chronic Priority: Low Current Visit: No Qualifiers: Depression Type: other depression Qualified Code(s): F32.89 - Other specified depressive episodes (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 SNOMED Code(s): 02841411 ICD Code: H54.8 - LEGAL BLINDNESS, DEFINED IN [place] Status: Chronic Priority: Medium Current Visit: Yes (13) Hypothyroid SNOMED Code(s): 40433303 ICD Code: E03.9 - HYPOTHYROIDISM, UNSPECIFIED Status: Chronic Priority: Low Current Visit: No Qualifiers: Hypothyroidism type: unspecified Qualified Code(s): E03.9 - Hypothyroidism, unspecified (14) History of prediabetes SNOMED Code(s): 544535754, 296065069 ICD Code: Z87.898 - PERSONAL HISTORY OF OTHER SPECIFIED CONDITIONS Status: Chronic Priority: Low Current Visit: No (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 SNOMED Code(s): 746367389, 179855469, 195681196 ICD Code: Z95.1 - PRESENCE OF AORTOCORONARY BYPASS GRAFT Status: Chronic Priority: Low Current Visit: No (16) Falls SNOMED Code(s): 8296556, 776433305 ICD Code: W19.XXXA - UNSPECIFIED FALL, INITIAL ENCOUNTER Status: Acute Priority: High Current Visit: Yes Qualifiers: Encounter type: initial encounter Qualified Code(s): W19.XXXA - Unspecified fall, initial encounter (17) Generalized weakness SNOMED Code(s): 56435833 ICD Code: R53.1 - WEAKNESS Status: Acute Priority: High Current Visit: Yes Problem List Initiated/Reviewed/Updated: Yes Orders Last 24hrs: Active Orders 24 hr Category Date Time Status Patient Status [ADT] Routine ADT 03/19/20 10:52 Ordered Bladder Scan [RC] ASDIRECTED Care 03/19/20 07:05 Active EKG 12 Lead [EKG Documentation Completion] [RC] STAT Care 03/19/20 06:27 Active Height and Weight [RC] DAILY Care 03/19/20 10:52 Ordered Intake and Output [RC] QSHIFT Care 03/19/20 10:53 Ordered Orthostatic Vital Signs [RC] STAT Care 03/19/20 07:05 Active Oxygen Therapy [RC] PRN Care 03/19/20 10:52 Ordered Pulse Oximetry [RC] PRN Care 03/19/20 10:53 Ordered Up With Assistance [RC] ASDIRECTED Care 03/19/20 10:52 Ordered VTE/DVT Education [RC] PER UNIT ROUTINE Care 03/19/20 10:52 Ordered Vital Signs [RC] Q4H Care 03/19/20 10:52 Ordered Consult to Case Management/Natural Resources Extension Educator [CONS] Cons 03/19/20 10:52 Ordered Routine Consult to Spiritual Care [CONS] Routine Cons 03/19/20 10:52 Ordered PT Evaluation and Treatment [CONS] Routine Cons 03/19/20 10:52 Ordered Ang Chest [CT] Stat Exams 03/19/20 08:51 Taken Chest 2V [CR] Stat Exams 03/19/20 07:05 Taken Head wo Cont [CT] Stat Exams 03/19/20 07:04 Taken CULTURE BLOOD [BC] Stat Lab 03/19/20 07:39 Received CULTURE BLOOD [BC] Stat Lab 03/19/20 07:49 Received Acetaminophen [TylenoL] Med 03/19/20 10:52 Ordered 650 mg PO Q4H PRN Ondansetron [Zofran] Med 03/19/20 10:52 Ordered 4 mg IV Q6H PRN Sodium Chloride 0.9% [Normal Saline] 100 ml Med 03/19/20 09:00 Active IV ASDIRECTED Sodium Chloride 0.9% [Saline Flush] Med 03/19/20 08:55 Active 10 ml FLUSH ONETIME PRN Blood Culture x2 Reflex Set [OM.PC] Stat Oth 03/19/20 07:08 Ordered Medication Orders Acetaminophen (Tylenol) 650 mg PO Q4H PRN PRN Reason: Pain (Mild 1-3)/fever Sodium Chloride (Normal Saline) 100 mls @ 75 mls/hr IV ASDIRECTED ODILIA Last Admin: 03/19/20 09:02 Dose: 75 mls/hr Documented by: IVY Ondansetron HCl (Zofran) 4 mg IV Q6H PRN PRN Reason: Nausea/Vomiting Sodium Chloride (Saline Flush) 10 ml FLUSH ONETIME PRN PRN Reason: IV FLUSH Last Admin: 03/19/20 09:02 Dose: 10 ml Documented by: IVY Assessment/Plan Comment:: Assessment on day of admission: 03/19/2020 * 84 yo male who reports to ED via ambulance with multiple falls and generalized weakness * Per , patient had been ambulating without difficulty until about a week ago * Per , patient is legally blind * Workup in ED basically unremarkable, however patient 2+ assist and unable to go home * Patient lives with in [place]. * Denies any injury or pain with falls * Denies any infectious symptoms * 12-lead EKG shows A-V paced rhythm * reports pacemaker was placed recently - well healing wound noted on left chest * CXR and CTA both show nothing acute. * Head CT negative for anything acute. There is some evidence of remote ischemic changes. * Labs in ED: * WBC 6.156 * Hgb 15.0 * Plt count 170 * Neutrophils 63% * D-Dimer 2.10 * Sodium 136 * Potassium 4.1 * Anion Gap 15.1 * BUN 18 * Creatinine 1.3 * GFR 52 * Magnesium 2.0 * Troponin 0.055 * Albumin 3.5 * TSH 1.778 * UA negative * SARS-CoV-2 screen negative * Vital signs stable PLAN: Hospital admission due to social situation Generalized weakness Falls Legally blind * PT evaluation * CM/SW to work on placement * Ambulate with nursing S/P placement of cardiac pacemaker * No current concerns Cerebral aneurysm * No current concerns CAD (coronary artery disease) Heart failure History of OR (myocardial infarction) S/P CABG x 2 * Continue home ASA HLD (hyperlipidemia) * Continue fenofibrate and Zetia HTN (hypertension) * Continue home Cozaar COPD (chronic obstructive pulmonary disease) * Non-treated * Stable with no concerns BPH (benign prostatic hyperplasia) * Continue flomax Depression * Continue home wellbutrin Hypothyroid * Continue home levothyroxine History of prediabetes * ADA diet * Obtain A1C * Monitor daily blood sugars PCP: Dr. Larose DVT Prophylaxis: Lovenox GI Prophylaxis: Not indicated Social: Patient lives with in [place] Disposition: Patient admitted inpatient for generalized weakness and frequent falls, PT evaluation and likely placement. Prognosis: Good - Mortality Measure Prognosis:: Good
[2020-03-19 16:03] LABS: VITAMIN D,25-HYDROXY 27.9 ng/ml (30.0-100.0)
[2020-03-19] MEDS ORDERED: Isosorbide Dinitrate 20 MG Tab PO ONE (20:57)
[2020-03-19] MEDS: ISOSORBIDE MONONITRATE 20 MG PO SCH (20:58)
[2020-03-19] MEDS: Docusate Sodium 100 MG Cap PO SCH (21:26)
[2020-03-20] MEDS: Levothyroxine 112 MCG Tab PO SCH (05:12)
--- NOTE | 2020-03-20 08:20 | PCM.PN ---
- General Info Date of Service: 03/20/20 Admission Dx/Problem (Free Text): Admission Diagnosis/Problem Admission Diagnosis/Problem Failure to thrive Functional Status: Reports: Pain Controlled, Tolerating Diet, Ambulating, Urinating. Denies: New Symptoms - Review of Systems General: Reports: Weakness. Denies: Fever, Fatigue, Malaise, Chills HEENT: Reports: No Symptoms. Denies: Headaches, Sore Throat Pulmonary: Reports: No Symptoms. Denies: Shortness of Breath, Pleuritic Chest Pain, Cough, Sputum, Wheezing Cardiovascular: Reports: Dyspnea on Exertion (baseline ). Denies: Chest Pain, Palpitations, Edema Gastrointestinal: Reports: No Symptoms. Denies: Abdominal Pain, Constipation, Diarrhea, Nausea, Vomiting Genitourinary: Reports: No Symptoms. Denies: Pain Musculoskeletal: Reports: No Symptoms Skin: Reports: No Symptoms. Denies: Cyanosis Neurological: Reports: Confusion (mild), Difficulty Walking, Weakness, Gait Disturbance. Denies: Headache, Numbness, Seizure, Syncope, Tingling, Tremors, Trouble Speaking Psychiatric: Reports: No Symptoms - Patient Data Vitals - Most Recent: Last Vital Signs Temp 97.5 F 03/20/20 07:44 Pulse 58 L 03/20/20 07:44 Resp 18 03/20/20 07:44 BP 135/67 03/20/20 07:44 Pulse Ox 99 03/20/20 07:44 Orthostatic Blood Pressure [ 80/51 Standing] Orthostatic Blood Pressure [ 97/58 Supine] Weight - Most Recent: 220 lb I&O - Last 24 Hours: Intake & Output 03/19/20 03/20/20 03/20/20 22:59 06:59 14:59 Intake Total 390 550 Output Total 300 600 Balance 90 -50 Lab Results Last 24 Hours: Laboratory Results - last 24 hr 03/19/20 03/19/20 03/19/20 Range/Units 06:35 06:35 07:39 Sodium 136 (136-145) mEq/L Potassium 4.1 (3.5-5.1) mEq/L Chloride 102 (98-107) mEq/L Carbon Dioxide 23 (21-32) mEq/L Anion Gap 15.1 H (5-15) BUN 18 (7-18) mg/dL Creatinine 1.3 (0.7-1.3) mg/dL Est Cr Clr Drug Dosing TNP Estimated GFR (MDRD) 52 (>60) mL/min BUN/Creatinine Ratio 13.8 L (14-18) Glucose 127 H (83-115) mg/dL Hemoglobin A1c (4.50-6.20) % Calcium 9.8 (8.5-10.1) mg/dL Phosphorus 3.0 (2.6-4.7) mg/dL Magnesium 2.0 (1.8-2.4) mg/dl Total Bilirubin 0.8 (0.2-1.0) mg/dL AST 27 (15-37) U/L ALT 24 (16-63) U/L Alkaline Phosphatase 57 (46-116) U/L Troponin I 0.055 (0.00-0.056) ng/mL C-Reactive Protein 0.4 (<1.0) mg/dL Total Protein 6.9 (6.4-8.2) g/dl Albumin 3.5 (3.4-5.0) g/dl Globulin 3.4 gm/dL Albumin/Globulin Ratio 1.0 (1-2) Vitamin B12 334 (193-986) pg/ml Vitamin D 25-Hydroxy 27.9 L (30.0-100.0) ng/ml Folate 20.8 (8.6-58.9) ng/mL TSH 3rd Generation 1.778 (0.358-3.74) uIU/mL Urine Color (Yellow) Urine Appearance (Clear) Urine pH (5.0-8.0) Ur Specific [place] (1.005-1.030) Urine Protein (Negative) Urine Glucose (UA) (Negative) Urine Ketones (Negative) Urine Occult Blood (Negative) Urine Nitrite (Negative) Urine Bilirubin (Negative) Urine Urobilinogen (0.2-1.0) Ur Leukocyte Esterase (Negative) Urine RBC (0-5) /hpf Urine WBC (0-5) /hpf Ur Squamous Epith Cells (0-5) /hpf Urine Bacteria (FEW) /hpf Urine Mucus (FEW) /hpf RPR (NONREACTIVE) SARS-CoV-2 RNA (OSMAR) (NEGATIVE) 03/19/20 03/19/20 03/19/20 Range/Units 07:39 08:15 08:30 Sodium (136-145) mEq/L Potassium (3.5-5.1) mEq/L Chloride (98-107) mEq/L Carbon Dioxide (21-32) mEq/L Anion Gap (5-15) BUN (7-18) mg/dL Creatinine (0.7-1.3) mg/dL Est Cr Clr Drug Dosing Estimated GFR (MDRD) (>60) mL/min BUN/Creatinine Ratio (14-18) Glucose (83-115) mg/dL Hemoglobin A1c 6.00 (4.50-6.20) % Calcium (8.5-10.1) mg/dL Phosphorus (2.6-4.7) mg/dL Magnesium (1.8-2.4) mg/dl Total Bilirubin (0.2-1.0) mg/dL AST (15-37) U/L ALT (16-63) U/L Alkaline Phosphatase (46-116) U/L Troponin I (0.00-0.056) ng/mL C-Reactive Protein (<1.0) mg/dL Total Protein (6.4-8.2) g/dl Albumin (3.4-5.0) g/dl Globulin gm/dL Albumin/Globulin Ratio (1-2) Vitamin B12 (193-986) pg/ml Vitamin D 25-Hydroxy (30.0-100.0) ng/ml Folate (8.6-58.9) ng/mL TSH 3rd Generation (0.358-3.74) uIU/mL Urine Color Yellow (Yellow) Urine Appearance Clear (Clear) Urine pH 6.0 (5.0-8.0) Ur Specific [place] 1.025 (1.005-1.030) Urine Protein Negative (Negative) Urine Glucose (UA) Negative (Negative) Urine Ketones Negative (Negative) Urine Occult Blood Negative (Negative) Urine Nitrite Negative (Negative) Urine Bilirubin Negative (Negative) Urine Urobilinogen 0.2 (0.2-1.0) Ur Leukocyte Esterase Negative (Negative) Urine RBC 0-5 (0-5) /hpf Urine WBC 0-5 (0-5) /hpf Ur Squamous Epith Cells 0-5 (0-5) /hpf Urine Bacteria Few (FEW) /hpf Urine Mucus Few (FEW) /hpf RPR (NONREACTIVE) SARS-CoV-2 RNA (OSMAR) Negative (NEGATIVE) 03/19/20 03/20/20 Range/Units 15:21 05:30 Sodium 136 (136-145) mEq/L Potassium 4.2 (3.5-5.1) mEq/L Chloride 102 (98-107) mEq/L Carbon Dioxide 27 (21-32) mEq/L Anion Gap 11.2 (5-15) BUN 21 H (7-18) mg/dL Creatinine 1.4 H (0.7-1.3) mg/dL Est Cr Clr Drug Dosing 39.83 Estimated GFR (MDRD) 48 (>60) mL/min BUN/Creatinine Ratio 15.0 (14-18) Glucose 122 H (83-115) mg/dL Hemoglobin A1c (4.50-6.20) % Calcium 9.1 (8.5-10.1) mg/dL Phosphorus (2.6-4.7) mg/dL Magnesium 2.0 (1.8-2.4) mg/dl Total Bilirubin (0.2-1.0) mg/dL AST (15-37) U/L ALT (16-63) U/L Alkaline Phosphatase (46-116) U/L Troponin I (0.00-0.056) ng/mL C-Reactive Protein (<1.0) mg/dL Total Protein (6.4-8.2) g/dl Albumin (3.4-5.0) g/dl Globulin gm/dL Albumin/Globulin Ratio (1-2) Vitamin B12 (193-986) pg/ml Vitamin D 25-Hydroxy (30.0-100.0) ng/ml Folate (8.6-58.9) ng/mL TSH 3rd Generation (0.358-3.74) uIU/mL Urine Color (Yellow) Urine Appearance (Clear) Urine pH (5.0-8.0) Ur Specific [place] (1.005-1.030) Urine Protein (Negative) Urine Glucose (UA) (Negative) Urine Ketones (Negative) Urine Occult Blood (Negative) Urine Nitrite (Negative) Urine Bilirubin (Negative) Urine Urobilinogen (0.2-1.0) Ur Leukocyte Esterase (Negative) Urine RBC (0-5) /hpf Urine WBC (0-5) /hpf Ur Squamous Epith Cells (0-5) /hpf Urine Bacteria (FEW) /hpf Urine Mucus (FEW) /hpf RPR Non-reactive (NONREACTIVE) SARS-CoV-2 RNA (OSMAR) (NEGATIVE) Iftikhar Results Last 24 Hours: Microbiology 03/19/20 07:49 Aerobic Blood Culture - Preliminary Blood - Venous - Lab Draw NO GROWTH AFTER 1 DAY Anaerobic Blood Culture - Preliminary NO GROWTH AFTER 1 DAY 03/19/20 07:39 Aerobic Blood Culture - Preliminary Blood - Venous NO GROWTH AFTER 1 DAY Anaerobic Blood Culture - Preliminary NO GROWTH AFTER 1 DAY Med Orders - Current: Current Medications Acetaminophen (Tylenol) 650 mg PO Q4H PRN PRN Reason: Pain (Mild 1-3)/fever Artificial Tears (Refresh Liquigel 1%) 0 ml EYEBOTH DAILY [facility] Aspirin (Aspirin) 81 mg PO DAILY [facility] Bupropion HCl (Wellbutrin Sr) 150 mg PO DAILY [facility] Cholecalciferol (Vitamin D3) 5,000 unit PO DAILY [facility] Docusate Sodium (Colace) 100 mg PO BID [facility] Last Admin: 03/19/20 21:26 Dose: 100 mg Documented by: Ezetimibe (Zetia) 10 mg PO DAILY [facility] Enoxaparin Sodium (Lovenox) 40 mg SUBCUT DAILY [facility] Fenofibrate (Tricor) 145 mg PO DAILY [facility] Fluticasone Propionate (Flonase) 0 gm NASBOTH DAILY [facility] Levothyroxine Sodium (Levothyroxine) 112 mcg PO ACBREAKFAST [facility] Last Admin: 03/20/20 05:12 Dose: 112 mcg Documented by: Losartan Potassium (Cozaar) 50 mg PO DAILY [facility] Ondansetron HCl (Zofran) 4 mg IV Q6H PRN PRN Reason: Nausea/Vomiting Isosorbide (Mononitrate 20 Mg) 0 each PO BID [facility] Last Admin: 03/19/20 20:58 Dose: Not Given Documented by: Sodium Chloride (Saline Flush) 10 ml FLUSH ONETIME PRN PRN Reason: IV FLUSH Last Admin: 03/19/20 09:02 Dose: 10 ml Documented by: Tamsulosin HCl (Flomax) 0.4 mg PO DAILY [facility] Discontinued Medications Sodium Chloride (Normal Saline) 100 mls @ 75 mls/hr IV ASDIRECTED [facility] Last Admin: 03/19/20 09:02 Dose: 75 mls/hr Documented by: Iopamidol (Isovue-370 (76%)) 50 ml IVPUSH ONETIME ONE Stop: 03/19/20 08:56 Last Admin: 03/19/20 09:02 Dose: 50 ml Documented by: Iopamidol (Isovue-370 (76%)) 100 ml IVPUSH ONETIME ONE Stop: 03/19/20 08:56 Last Admin: 03/19/20 09:02 Dose: 100 ml Documented by: Isosorbide Dinitrate (Isordil) 20 mg PO ONETIME ONE Stop: 03/19/20 20:58 Last Admin: 03/19/20 21:26 Dose: 20 mg Documented by: - Exam Quality Assessment: DVT Prophylaxis. No: Supplemental Oxygen, Urine Catheter General: Alert, Cooperative, No Acute Distress HEENT: Pupils Equal, Pupils Reactive, Mucous Membr. Moist/[place] Neck: Supple, Trachea Midline Lungs: Clear to Auscultation, Normal Respiratory Effort Cardiovascular: Regular Rate, Regular Rhythm, Other (Pacemaker) GI/Abdominal Exam: Normal Bowel Sounds, Soft, Non-Tender, No Distention (Male) Exam: Deferred Back Exam: Normal Inspection, Full Range of Motion Extremities: Normal Inspection, Normal Range of Motion, Non-Tender, No Pedal Edema, Normal Capillary Refill Skin: Warm, Dry, Intact Neurological: No New Focal Deficit Psy/Mental Status: Alert Sepsis Event Note - Evaluation Sepsis Screening Result: No Definite Risk - Problem List & Annotations (1) S/P placement of cardiac pacemaker SNOMED Code(s): 244828765, 647441156, 649879484 Code(s): Z95.0 - PRESENCE OF CARDIAC PACEMAKER Status: Chronic Priority: Low Current Visit: No (2) Hospital admission due to social situation SNOMED Code(s): 035355046 Code(s): Z60.9 - PROBLEM RELATED TO SOCIAL ENVIRONMENT, UNSPECIFIED Status: Acute Priority: High Current Visit: Yes (3) Cerebral aneurysm SNOMED Code(s): 354959738 Code(s): I67.1 - CEREBRAL ANEURYSM, NONRUPTURED Status: Chronic Priority: Low Current Visit: No (4) CAD (coronary artery disease) SNOMED Code(s): 36368484 Code(s): I25.10 - ATHSCL HEART DISEASE OF [place] CORONARY ARTERY W/O ANG PCTRS Status: Chronic Priority: Low Current Visit: No Qualifiers: Coronary Disease-Associated Artery/Lesion type: bypass graft [place] vs. transplanted heart: [place] heart Associated angina: angina presence unspecified Qualified Code(s): I25.810 - Atherosclerosis of coronary artery bypass graft(s) without angina pectoris (5) Heart failure SNOMED Code(s): 07857940 Code(s): I50.9 - HEART FAILURE, UNSPECIFIED Status: Chronic Priority: Low Current Visit: No Qualifiers: Heart failure type: unspecified Heart failure chronicity: unspecified Qualified Code(s): I50.9 - Heart failure, unspecified (6) HLD (hyperlipidemia) SNOMED Code(s): 21317807 Code(s): E78.5 - HYPERLIPIDEMIA, UNSPECIFIED Status: Chronic Priority: Low Current Visit: No Qualifiers: Hyperlipidemia type: unspecified Qualified Code(s): E78.5 - Hyperlipidemia, unspecified (7) HTN (hypertension) SNOMED Code(s): 29706380 Code(s): I10 - ESSENTIAL (PRIMARY) HYPERTENSION Status: Chronic Priority: Low Current Visit: No Qualifiers: Hypertension type: unspecified Qualified Code(s): I10 - Essential (primary) hypertension (8) History of CT (myocardial infarction) SNOMED Code(s): 747026708 Code(s): I25.2 - OLD MYOCARDIAL INFARCTION Status: Chronic Priority: Low Current Visit: No (9) COPD (chronic obstructive pulmonary disease) SNOMED Code(s): 24679410 Code(s): J44.9 - CHRONIC OBSTRUCTIVE PULMONARY DISEASE, UNSPECIFIED Status: Chronic Priority: Low Current Visit: No Qualifiers: COPD type: unspecified COPD Qualified Code(s): J44.9 - Chronic obstructive pulmonary disease, unspecified (10) BPH (benign prostatic hyperplasia) SNOMED Code(s): 372759883 Code(s): N40.0 - BENIGN PROSTATIC HYPERPLASIA WITHOUT LOWER URINRY TRACT SYMP Status: Chronic Priority: Low Current Visit: No Qualifiers: Lower urinary tract symptom presence: symptoms absent Qualified Code(s): N40.0 - Benign prostatic hyperplasia without lower urinary tract symptoms (11) Depression SNOMED Code(s): 86370684 Code(s): F32.9 - MAJOR DEPRESSIVE DISORDER, SINGLE EPISODE, UNSPECIFIED Status: Chronic Priority: Low Current Visit: No Qualifiers: Depression Type: other depression Qualified Code(s): F32.89 - Other specified depressive episodes (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 SNOMED Code(s): 05587440 Code(s): H54.8 - LEGAL BLINDNESS, DEFINED IN [place] Status: Chronic Priority: Medium Current Visit: Yes (13) Hypothyroid SNOMED Code(s): 12997736 Code(s): E03.9 - HYPOTHYROIDISM, UNSPECIFIED Status: Chronic Priority: Low Current Visit: No Qualifiers: Hypothyroidism type: unspecified Qualified Code(s): E03.9 - Hypothyroidism, unspecified (14) History of prediabetes SNOMED Code(s): 969307872, 125729637 Code(s): Z87.898 - PERSONAL HISTORY OF OTHER SPECIFIED CONDITIONS Status: Chronic Priority: Low Current Visit: No (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 SNOMED Code(s): 444215064, 077202131, 278576159 Code(s): Z95.1 - PRESENCE OF AORTOCORONARY BYPASS GRAFT Status: Chronic Priority: Low Current Visit: No (16) Falls SNOMED Code(s): 0698970, 574399047 Code(s): W19.XXXA - UNSPECIFIED FALL, INITIAL ENCOUNTER Status: Acute Priority: High Current Visit: Yes Qualifiers: Encounter type: initial encounter Qualified Code(s): W19.XXXA - Unspecified fall, initial encounter (17) Generalized weakness SNOMED Code(s): 03842228 Code(s): R53.1 - WEAKNESS Status: Acute Priority: High Current Visit: Yes - Problem List Review Problem List Initiated/Reviewed/Updated: Yes - My Orders Last 24 Hours: My Active Orders 03/19/20 07:39 PROCALCITONIN [REF] Routine 03/19/20 10:52 Patient Status [ADT] Routine Height and Weight [RC] 04 Oxygen Therapy [RC] PRN Up With Assistance [RC] ASDIRECTED VTE/DVT Education [RC] BID Vital Signs [RC] Q4HR Consult to Case Management/Human Services Instructor [CONS] Routine Consult to Spiritual Care [CONS] Routine PT Evaluation and Treatment [CONS] Routine Acetaminophen [TylenoL] 650 mg PO Q4H PRN Ondansetron [Zofran] 4 mg IV Q6H PRN 03/19/20 10:53 Intake and Output [RC] 04,16 Pulse Oximetry [RC] PRN 03/19/20 13:45 Code Status [Resuscitation Status] Routine 03/19/20 Dinner ADA Diabetic [[place] [employer] Diet] [DIET] 03/19/20 21:00 Docusate Sodium [Colace] 100 mg PO BID Patient's Own Medication [Ptom] 0 each PO BID 03/20/20 06:00 Levothyroxine 112 mcg PO ACBREAKFAST 03/20/20 09:00 Aspirin 81 mg PO DAILY Carboxymethylcellulose Sodium [Refresh Liquigel 1%] 0 ml EYEBOTH DAILY Cholecalciferol (Vitamin D3) [Vitamin D3] 5,000 unit PO DAILY Enoxaparin [Lovenox] 40 mg SUBCUT DAILY Ezetimibe [Zetia] 10 mg PO DAILY Fenofibrate Nanocrystallized [Tricor] 145 mg PO DAILY Fluticasone Propionate [Flonase] 0 gm NASBOTH DAILY Losartan [Cozaar] 50 mg PO DAILY Tamsulosin [Flomax] 0.4 mg PO DAILY buPROPion [Wellbutrin SR] 150 mg PO DAILY - Assessment Assessment:: Assessment on day of admission: 03/19/2020 * 84 yo male who reports to ED via ambulance with multiple falls and generalized weakness * Per , patient had been ambulating without difficulty until about a week ago * Per , patient is legally blind * Workup in ED basically unremarkable, however patient 2+ assist and unable to go home * Patient lives with in [place]. * Denies any injury or pain with falls * Denies any infectious symptoms * 12-lead EKG shows A-V paced rhythm * reports pacemaker was placed recently - well healing wound noted on left chest * CXR and CTA both show nothing acute. * Head CT negative for anything acute. There is some evidence of remote ischemic changes. * Labs in ED: * WBC 6.156 * Hgb 15.0 * Plt count 170 * Neutrophils 63% * D-Dimer 2.10 * Sodium 136 * Potassium 4.1 * Anion Gap 15.1 * BUN 18 * Creatinine 1.3 * GFR 52 * Magnesium 2.0 * Troponin 0.055 * Albumin 3.5 * TSH 1.778 * UA negative * SARS-CoV-2 screen negative * Vital signs stable 03/20/2020 * Remains weak but otherwise no complaints * Very large BM today per nursing * Labs show creatinine of 1.4 and GFR of 48 (slightly worse) * Electrolytes WNL * Vitamin B12, Folic acid, CRP all WNL * Vitamin D slightly low at 27.9 - supplementation started * A1C 6.0% * RPR negative * Working with PT/OT * No nursing or patient concerns. * Vital signs stable * Remains off of oxygen - Plan Plan:: Hospital admission due to social situation Generalized weakness Falls Legally blind * PT evaluation * CM/SW to work on placement * Ambulate with nursing S/P placement of cardiac pacemaker * No current concerns Cerebral aneurysm * No current concerns CAD (coronary artery disease) Heart failure History of CT (myocardial infarction) S/P CABG x 2 * Continue home ASA HLD (hyperlipidemia) * Continue fenofibrate and Zetia HTN (hypertension) * Continue home Cozaar COPD (chronic obstructive pulmonary disease) * Non-treated * Stable with no concerns BPH (benign prostatic hyperplasia) * Continue flomax Depression * Continue home wellbutrin Hypothyroid * Continue home levothyroxine History of prediabetes, A1C 6.00% * ADA diet * Monitor daily blood sugars PCP: Dr. Larose DVT Prophylaxis: Lovenox GI Prophylaxis: Not indicated Social: Patient lives with in [place] Disposition: Patient admitted inpatient for generalized weakness and frequent falls, PT evaluation and likely placement. Prognosis: Good LOS >96 Hrs pending placement
[2020-03-20] MEDS: Aspirin 81 MG Tab.Chew PO SCH (08:34)
[2020-03-20] MEDS: Cholecalciferol (Vitamin D3) 5,000 UNIT Cap PO SCH (08:34)
[2020-03-20] MEDS: Docusate Sodium 100 MG Cap PO SCH (08:34)
[2020-03-20] MEDS: Tamsulosin 0.4 MG Cap.ER PO SCH (08:34)
[2020-03-20] MEDS: buPROPion 150 MG Tab.SR PO SCH (08:35)
[2020-03-20] MEDS: Ezetimibe 10 MG Tab PO SCH (08:35)
[2020-03-20] MEDS: Fenofibrate Nanocrystallized 145 MG Tab PO SCH (08:36)
[2020-03-20] MEDS: Losartan 25 MG Tab PO SCH (08:36)
[2020-03-20] MEDS: Enoxaparin 40 MG/0.4 ML Syringe SUBCUT SCH (08:37)
[2020-03-20] MEDS: Fluticasone Propionate Nasal Spray 16 GM Bottle NASBOTH SCH (08:40)
[2020-03-20] MEDS: Carboxymethylcellulose Sodium 1% Ophth Gel 15 ML Bottle EYEBOTH SCH (08:40)
[2020-03-20] MEDS ORDERED: Fluticasone Propionate Nasal Spray 16 GM Bottle NASBOTH SCH (09:00)
[2020-03-20] MEDS: ISOSORBIDE MONONITRATE 20 MG PO SCH ×2 (09:10→20:58)
[2020-03-20] MEDS ORDERED: Sennosides 8.6 MG Tab PO SCH (09:45)
[2020-03-21] MEDS: Acetaminophen 325 MG Tab PO PRN ×2 (06:36→22:32)
[2020-03-21] MEDS: Levothyroxine 112 MCG Tab PO SCH (06:36)
--- NOTE | 2020-03-21 09:06 | PCM.PN ---
- General Info Date of Service: 03/21/20 Subjective Update: The patient is an 84-year-old gentleman who was admitted on March 19, 2020 primarily out of concern for altered mental status. The patient was noted to have fallen twice yesterday. The patient also has a one-to-one sitter. Functional Status: Reports: Pain Controlled, Tolerating Diet - Review of Systems General: Reports: No Symptoms HEENT: Reports: No Symptoms Pulmonary: Reports: No Symptoms Cardiovascular: Reports: No Symptoms Gastrointestinal: Reports: No Symptoms Genitourinary: Reports: No Symptoms Musculoskeletal: Reports: Leg Pain Skin: Reports: No Symptoms Neurological: Reports: No Symptoms Psychiatric: Reports: Confusion - Patient Data Vitals - Most Recent: Last Vital Signs Temp 36.7 C 03/21/20 07:35 Pulse 66 03/21/20 07:35 Resp 18 03/21/20 07:35 BP 137/77 03/21/20 08:34 Pulse Ox 92 L 03/21/20 07:35 Orthostatic Blood Pressure [ 80/51 Standing] Orthostatic Blood Pressure [ 97/58 Supine] Weight - Most Recent: 101.015 kg I&O - Last 24 Hours: Intake & Output 03/20/20 03/21/20 03/21/20 22:59 06:59 14:59 Intake Total 1180 700 Output Total 200 1450 Balance 980 -750 Lab Results Last 24 Hours: Laboratory Results - last 24 hr 03/19/20 Range/Units 07:39 Procalcitonin <0.05 (<0.10) ng/mL Iftikhar Results Last 24 Hours: Microbiology 03/19/20 07:49 Aerobic Blood Culture - Preliminary Blood - Venous - Lab Draw NO GROWTH AFTER 2 DAYS Anaerobic Blood Culture - Preliminary NO GROWTH AFTER 2 DAYS 03/19/20 07:39 Aerobic Blood Culture - Preliminary Blood - Venous NO GROWTH AFTER 2 DAYS Anaerobic Blood Culture - Preliminary NO GROWTH AFTER 2 DAYS Med Orders - Current: Current Medications Acetaminophen (Tylenol) 650 mg PO Q4H PRN PRN Reason: Pain (Mild 1-3)/fever Last Admin: 03/21/20 06:36 Dose: 650 mg Documented by: Artificial Tears (Refresh Liquigel 1%) 0 ml EYEBOTH DAILY [facility] Last Admin: 03/20/20 08:40 Dose: 1 drop Documented by: Aspirin (Aspirin) 81 mg PO DAILY [facility] Last Admin: 03/20/20 08:34 Dose: 81 mg Documented by: Bupropion HCl (Wellbutrin Sr) 150 mg PO DAILY [facility] Last Admin: 03/20/20 08:35 Dose: 150 mg Documented by: Cholecalciferol (Vitamin D3) 5,000 unit PO DAILY [facility] Last Admin: 03/20/20 08:34 Dose: 5,000 unit Documented by: Docusate Sodium (Colace) 100 mg PO BID PRN PRN Reason: Constipation Ezetimibe (Zetia) 10 mg PO DAILY [facility] Last Admin: 03/20/20 08:35 Dose: 10 mg Documented by: Enoxaparin Sodium (Lovenox) 40 mg SUBCUT DAILY [facility] Last Admin: 03/20/20 08:37 Dose: 40 mg Documented by: Fenofibrate (Tricor) 145 mg PO DAILY [facility] Last Admin: 03/20/20 08:36 Dose: 145 mg Documented by: Fluticasone Propionate (Flonase) 0 gm NASBOTH DAILY [facility] Last Admin: 03/20/20 08:40 Dose: 1 spray Documented by: Levothyroxine Sodium (Levothyroxine) 112 mcg PO ACBREAKFAST [facility] Last Admin: 03/21/20 06:36 Dose: 112 mcg Documented by: Losartan Potassium (Cozaar) 50 mg PO DAILY [facility] Last Admin: 03/20/20 08:36 Dose: 50 mg Documented by: Ondansetron HCl (Zofran) 4 mg IV Q6H PRN PRN Reason: Nausea/Vomiting Isosorbide (Mononitrate 20 Mg) 0 each PO BID [facility] Last Admin: 03/20/20 20:58 Dose: Not Given Documented by: Sodium Chloride (Saline Flush) 10 ml FLUSH ONETIME PRN PRN Reason: IV FLUSH Last Admin: 03/19/20 09:02 Dose: 10 ml Documented by: Tamsulosin HCl (Flomax) 0.4 mg PO DAILY [facility] Last Admin: 03/20/20 08:34 Dose: 0.4 mg Documented by: Discontinued Medications Docusate Sodium (Colace) 100 mg PO BID [facility] Last Admin: 03/20/20 08:34 Dose: 100 mg Documented by: Sodium Chloride (Normal Saline) 100 mls @ 75 mls/hr IV ASDIRECTED [facility] Last Admin: 03/19/20 09:02 Dose: 75 mls/hr Documented by: Iopamidol (Isovue-370 (76%)) 50 ml IVPUSH ONETIME ONE Stop: 03/19/20 08:56 Last Admin: 03/19/20 09:02 Dose: 50 ml Documented by: Iopamidol (Isovue-370 (76%)) 100 ml IVPUSH ONETIME ONE Stop: 03/19/20 08:56 Last Admin: 03/19/20 09:02 Dose: 100 ml Documented by: Isosorbide Dinitrate (Isordil) 20 mg PO ONETIME ONE Stop: 03/19/20 20:58 Last Admin: 03/19/20 21:26 Dose: 20 mg Documented by: Senna (Senna) 17.2 mg PO BID [facility] Last Admin: 03/21/20 01:21 Dose: Not Given Documented by: - Exam Quality Assessment: No: Supplemental Oxygen General: Alert. No: Oriented (Oriented to person only) HEENT: Pupils Equal Neck: Supple Lungs: Clear to Auscultation, Normal Respiratory Effort Cardiovascular: Regular Rate, Regular Rhythm GI/Abdominal Exam: Normal Bowel Sounds, No Distention (Male) Exam: Deferred Back Exam: Normal Inspection, Full Range of Motion Extremities: Normal Inspection Skin: Other (Abrasion noted left knee) Neurological: No New Focal Deficit Psy/Mental Status: Alert, Normal Affect Sepsis Event Note - Evaluation Sepsis Screening Result: No Definite Risk - Focused Exam Vital Signs: Vital Signs Temp Pulse Resp BP Pulse Ox 03/21/20 08:34 137/77 03/21/20 08:32 160/84 H 03/21/20 07:35 36.7 C 66 18 132/97 H 92 L 03/21/20 07:32 60 93 L 03/21/20 06:06 36.4 C 69 18 151/95 H 98 03/21/20 03:41 36.6 C 66 18 152/92 H 97 03/21/20 00:21 36.4 C 60 20 155/96 H 97 - Problem List & Annotations (1) Falls SNOMED Code(s): 0190029, 461514476 Code(s): W19.XXXA - UNSPECIFIED FALL, INITIAL ENCOUNTER Status: Acute Priority: High Current Visit: Yes Qualifiers: Encounter type: initial encounter Qualified Code(s): W19.XXXA - Unspecified fall, initial encounter (2) Generalized weakness SNOMED Code(s): 77852688 Code(s): R53.1 - WEAKNESS Status: Acute Priority: High Current Visit: Yes (3) Hospital admission due to social situation SNOMED Code(s): 058204768 Code(s): Z60.9 - PROBLEM RELATED TO SOCIAL ENVIRONMENT, UNSPECIFIED Status: Acute Priority: High Current Visit: Yes (4) S/P placement of cardiac pacemaker SNOMED Code(s): 515494559, 289747460, 820907748 Code(s): Z95.0 - PRESENCE OF CARDIAC PACEMAKER Status: Chronic Priority: Low Current Visit: No - Problem List Review Problem List Initiated/Reviewed/Updated: Yes - Assessment Assessment:: Assessment on day of admission: 03/19/2020 * 84 yo male who reports to ED via ambulance with multiple falls and generalized weakness * Per , patient had been ambulating without difficulty until about a week ag o * Per , patient is legally blind * Workup in ED basically unremarkable, however patient 2+ assist and unable to go home * Patient lives with in [place]. * Denies any injury or pain with falls * Denies any infectious symptoms * 12-lead EKG shows A-V paced rhythm * reports pacemaker was placed recently - well healing wound noted on left chest * CXR and CTA both show nothing acute. * Head CT negative for anything acute. There is some evidence of remote ischemic changes. * Labs in ED: * WBC 6.156 * Hgb 15.0 * Plt count 170 * Neutrophils 63% * D-Dimer 2.10 * Sodium 136 * Potassium 4.1 * Anion Gap 15.1 * BUN 18 * Creatinine 1.3 * GFR 52 * Magnesium 2.0 * Troponin 0.055 * Albumin 3.5 * TSH 1.778 * UA negative * SARS-CoV-2 screen negative * Vital signs stable 03/20/2020 * Remains weak but otherwise no complaints * Very large BM today per nursing * Labs show creatinine of 1.4 and GFR of 48 (slightly worse) * Electrolytes WNL * Vitamin B12, Folic acid, CRP all WNL * Vitamin D slightly low at 27.9 - supplementation started * A1C 6.0% * RPR negative * Working with PT/OT * No nursing or patient concerns. * Vital signs stable * Remains off of oxygen - Plan Plan:: Hospital admission due to social situation Generalized weakness Falls Legally blind * PT evaluation * CM/SW to work on placement * Ambulate with nursing S/P placement of cardiac pacemaker * No current concerns Cerebral aneurysm * No current concerns CAD (coronary artery disease) Heart failure History of CT (myocardial infarction) S/P CABG x 2 * Continue home ASA HLD (hyperlipidemia) * Continue fenofibrate and Zetia HTN (hypertension) * Continue home Cozaar COPD (chronic obstructive pulmonary disease) * Non-treated * Stable with no concerns BPH (benign prostatic hyperplasia) * Continue flomax Depression * Continue home wellbutrin Hypothyroid * Continue home levothyroxine History of prediabetes, A1C 6.00% * ADA diet * Monitor daily blood sugars PCP: Dr. Larose DVT Prophylaxis: Lovenox GI Prophylaxis: Not indicated Social: Patient lives with in [place] Disposition: Patient admitted inpatient for generalized weakness and frequent falls, PT evaluation and likely placement. Prognosis: Good LOS >96 Hrs pending placement 03/21/2020 The patient has a pacemaker in place and therefore is not able to undergo an MRI . We will consider CTA of the head in place. Patient still remains confused and one-to-one sitter will be continued. We will continue to monitor the patient's vital signs and if he becomes hypoxic we will institute oxygen therapy. Laboratory studies have been ordered. We will continue to monitor and replace electrolytes as necessary. Currently awaiting placement. We will continue with PT OT. Will be monitored for falls.
[2020-03-21] MEDS: Cholecalciferol (Vitamin D3) 5,000 UNIT Cap PO SCH (09:35)
[2020-03-21] MEDS: Tamsulosin 0.4 MG Cap.ER PO SCH (09:35)
[2020-03-21] MEDS: buPROPion 150 MG Tab.SR PO SCH (09:35)
[2020-03-21] MEDS: Fenofibrate Nanocrystallized 145 MG Tab PO SCH (09:35)
[2020-03-21] MEDS: Losartan 25 MG Tab PO SCH (09:35)
[2020-03-21] MEDS: Aspirin 81 MG Tab.Chew PO SCH (09:35)
[2020-03-21] MEDS: Ezetimibe 10 MG Tab PO SCH (09:35)
[2020-03-21] MEDS: Enoxaparin 40 MG/0.4 ML Syringe SUBCUT SCH (09:35)
[2020-03-21] MEDS: ISOSORBIDE MONONITRATE 20 MG PO SCH ×2 (09:36→20:07)
[2020-03-21] MEDS: Fluticasone Propionate Nasal Spray 16 GM Bottle NASBOTH SCH (09:36)
[2020-03-21] MEDS: Carboxymethylcellulose Sodium 1% Ophth Gel 15 ML Bottle EYEBOTH SCH (09:36)
[2020-03-22] MEDS: Levothyroxine 112 MCG Tab PO SCH (05:53)
[2020-03-22] MEDS: Enoxaparin 40 MG/0.4 ML Syringe SUBCUT SCH (09:56)
[2020-03-22] MEDS: Ezetimibe 10 MG Tab PO SCH (09:57)
[2020-03-22] MEDS: buPROPion 150 MG Tab.SR PO SCH (09:57)
[2020-03-22] MEDS: Cholecalciferol (Vitamin D3) 5,000 UNIT Cap PO SCH (09:57)
[2020-03-22] MEDS: Aspirin 81 MG Tab.Chew PO SCH (09:58)
[2020-03-22] MEDS: Fluticasone Propionate Nasal Spray 16 GM Bottle NASBOTH SCH (09:58)
[2020-03-22] MEDS: Tamsulosin 0.4 MG Cap.ER PO SCH (09:58)
[2020-03-22] MEDS: Fenofibrate Nanocrystallized 145 MG Tab PO SCH (09:58)
[2020-03-22] MEDS: Losartan 25 MG Tab PO SCH (09:58)
[2020-03-22] MEDS: Carboxymethylcellulose Sodium 1% Ophth Gel 15 ML Bottle EYEBOTH SCH (09:59)
[2020-03-22] MEDS: ISOSORBIDE MONONITRATE 20 MG PO SCH ×3 (09:59→20:22)
--- NOTE | 2020-03-22 11:04 | PCM.PN ---
- General Info Date of Service: 03/22/20 Admission Dx/Problem (Free Text): Admission Diagnosis/Problem Admission Diagnosis/Problem Failure to thrive Subjective Update: The patient has denied any new problems. He is confused and not oriented to place or time. He has been tolerating diet. The patient also says that he does not remember me from yesterday. Functional Status: Reports: Pain Controlled - Review of Systems General: Reports: No Symptoms HEENT: Reports: No Symptoms Pulmonary: Reports: No Symptoms Cardiovascular: Reports: No Symptoms Gastrointestinal: Reports: No Symptoms Genitourinary: Reports: No Symptoms Musculoskeletal: Reports: No Symptoms Skin: Reports: No Symptoms Neurological: Reports: No Symptoms Psychiatric: Reports: No Symptoms - Patient Data Vitals - Most Recent: Last Vital Signs Temp 36.9 C 03/22/20 09:52 Pulse 64 03/22/20 09:52 Resp 20 03/22/20 09:52 BP 125/55 L 03/22/20 09:58 Pulse Ox 93 L 03/22/20 09:52 Orthostatic Blood Pressure [ 80/51 Standing] Orthostatic Blood Pressure [ 97/58 Supine] Weight - Most Recent: 99.291 kg I&O - Last 24 Hours: Intake & Output 03/21/20 03/22/20 03/22/20 22:59 06:59 14:59 Intake Total 1100 800 Output Total 375 950 Balance 725 -150 Lab Results Last 24 Hours: Laboratory Results - last 24 hr 03/22/20 03/22/20 03/22/20 Range/Units 04:25 04:25 04:25 WBC 4.87 (4.23-9.07) K/mm3 RBC 5.09 (4.63-6.08) M/mm3 Hgb 14.6 (13.7-17.5) gm/dl Hct 44.3 (40.1-51.0) % MCV 87.0 (79.0-92.2) fl MCH 28.7 (25.7-32.2) pg MCHC 33.0 (32.2-35.5) g/dl RDW Std Deviation 46.8 H (35.1-43.9) fL Plt Count 147 L (163-337) K/mm3 MPV 9.1 L (9.4-12.3) fl Neut % (Auto) 59.8 (34.0-67.9) % Lymph % (Auto) 24.0 (21.8-53.1) % [place] % (Auto) 12.9 H (5.3-12.2) % Eos % (Auto) 2.9 (0.8-7.0) Baso % (Auto) 0.2 (0.1-1.2) % Neut # (Auto) 2.91 (1.78-5.38) K/mm3 Lymph # (Auto) 1.17 L (1.32-3.57) K/mm3 [place] # (Auto) 0.63 (0.30-0.82) K/mm3 Eos # (Auto) 0.14 (0.04-0.54) K/mm3 Baso # (Auto) 0.01 (0.01-0.08) K/mm3 D-Dimer, Quantitative 2.36 H (0.19-0.50) mg/L Sodium 134 L (136-145) mEq/L Potassium 3.8 (3.5-5.1) mEq/L Chloride 100 (98-107) mEq/L Carbon Dioxide 23 (21-32) mEq/L Anion Gap 14.8 (5-15) BUN 24 H (7-18) mg/dL Creatinine 1.3 (0.7-1.3) mg/dL Est Cr Clr Drug Dosing 42.90 mL/min Estimated GFR (MDRD) 52 (>60) mL/min BUN/Creatinine Ratio 18.5 H (14-18) Glucose 108 (83-115) mg/dL Calcium 8.7 (8.5-10.1) mg/dL C-Reactive Protein 1.3 H* (<1.0) mg/dL Iftikhar Results Last 24 Hours: Microbiology 03/19/20 07:49 Aerobic Blood Culture - Preliminary Blood - Venous - Lab Draw NO GROWTH AFTER 3 DAYS Anaerobic Blood Culture - Preliminary NO GROWTH AFTER 3 DAYS 03/19/20 07:39 Aerobic Blood Culture - Preliminary Blood - Venous NO GROWTH AFTER 3 DAYS Anaerobic Blood Culture - Preliminary NO GROWTH AFTER 3 DAYS Med Orders - Current: Current Medications Acetaminophen (Tylenol) 650 mg PO Q4H PRN PRN Reason: Pain (Mild 1-3)/fever Last Admin: 03/21/20 22:32 Dose: 650 mg Documented by: Artificial Tears (Refresh Liquigel 1%) 0 ml EYEBOTH DAILY [facility] Last Admin: 03/22/20 09:59 Dose: 1 drop Documented by: Aspirin (Aspirin) 81 mg PO DAILY [facility] Last Admin: 03/22/20 09:58 Dose: 81 mg Documented by: Bupropion HCl (Wellbutrin Sr) 150 mg PO DAILY [facility] Last Admin: 03/22/20 09:57 Dose: 150 mg Documented by: Cholecalciferol (Vitamin D3) 5,000 unit PO DAILY [facility] Last Admin: 03/22/20 09:57 Dose: 5,000 unit Documented by: Docusate Sodium (Colace) 100 mg PO BID PRN PRN Reason: Constipation Ezetimibe (Zetia) 10 mg PO DAILY [facility] Last Admin: 03/22/20 09:57 Dose: 10 mg Documented by: Enoxaparin Sodium (Lovenox) 40 mg SUBCUT DAILY [facility] Last Admin: 03/22/20 09:56 Dose: 40 mg Documented by: Fenofibrate (Tricor) 145 mg PO DAILY [facility] Last Admin: 03/22/20 09:58 Dose: 145 mg Documented by: Fluticasone Propionate (Flonase) 0 gm NASBOTH DAILY [facility] Last Admin: 03/22/20 09:58 Dose: 1 spray Documented by: Levothyroxine Sodium (Levothyroxine) 112 mcg PO ACBREAKFAST [facility] Last Admin: 03/22/20 05:53 Dose: 112 mcg Documented by: Losartan Potassium (Cozaar) 50 mg PO DAILY [facility] Last Admin: 03/22/20 09:58 Dose: 50 mg Documented by: Ondansetron HCl (Zofran) 4 mg IV Q6H PRN PRN Reason: Nausea/Vomiting Isosorbide (Mononitrate 20 Mg) 0 each PO BID [facility] Last Admin: 03/22/20 09:59 Dose: Not Given Documented by: Sodium Chloride (Saline Flush) 10 ml FLUSH ONETIME PRN PRN Reason: IV FLUSH Last Admin: 03/19/20 09:02 Dose: 10 ml Documented by: Tamsulosin HCl (Flomax) 0.4 mg PO DAILY [facility] Last Admin: 03/22/20 09:58 Dose: 0.4 mg Documented by: Discontinued Medications Docusate Sodium (Colace) 100 mg PO BID [facility] Last Admin: 03/20/20 08:34 Dose: 100 mg Documented by: Sodium Chloride (Normal Saline) 100 mls @ 75 mls/hr IV ASDIRECTED [facility] Last Admin: 03/19/20 09:02 Dose: 75 mls/hr Documented by: Iopamidol (Isovue-370 (76%)) 50 ml IVPUSH ONETIME ONE Stop: 03/19/20 08:56 Last Admin: 03/19/20 09:02 Dose: 50 ml Documented by: Iopamidol (Isovue-370 (76%)) 100 ml IVPUSH ONETIME ONE Stop: 03/19/20 08:56 Last Admin: 03/19/20 09:02 Dose: 100 ml Documented by: Isosorbide Dinitrate (Isordil) 20 mg PO ONETIME ONE Stop: 03/19/20 20:58 Last Admin: 03/19/20 21:26 Dose: 20 mg Documented by: Senna (Senna) 17.2 mg PO BID [facility] Last Admin: 03/21/20 01:21 Dose: Not Given Documented by: Comments:: confusion, poor historian. - Exam Quality Assessment: No: Supplemental Oxygen General: Alert, Cooperative, No Acute Distress. No: Oriented HEENT: Pupils Equal, Pupils Reactive Neck: Supple, Trachea Midline Lungs: Clear to Auscultation, Normal Respiratory Effort Cardiovascular: Regular Rate, Regular Rhythm GI/Abdominal Exam: Normal Bowel Sounds, No Distention (Male) Exam: Deferred Back Exam: Normal Inspection, Full Range of Motion Extremities: Normal Inspection, No Pedal Edema Skin: Warm, Dry, Intact Neurological: No New Focal Deficit Psy/Mental Status: Alert, Normal Affect Sepsis Event Note - Evaluation Sepsis Screening Result: No Definite Risk - Focused Exam Vital Signs: Vital Signs Temp Pulse Resp BP Pulse Ox 03/22/20 09:58 125/55 L 03/22/20 09:52 36.9 C 64 20 125/55 L 93 L 03/22/20 03:24 36.7 C 64 20 131/68 95 - Problem List & Annotations (1) Multi-infarct dementia SNOMED Code(s): 42230601 Code(s): F01.50 - VASCULAR DEMENTIA WITHOUT BEHAVIORAL DISTURBANCE Status: Acute Current Visit: Yes (2) Falls SNOMED Code(s): 2191247, 972176458 Code(s): W19.XXXA - UNSPECIFIED FALL, INITIAL ENCOUNTER Status: Acute Priority: High Current Visit: Yes Qualifiers: Encounter type: initial encounter Qualified Code(s): W19.XXXA - Unspecified fall, initial encounter (3) Generalized weakness SNOMED Code(s): 62300031 Code(s): R53.1 - WEAKNESS Status: Acute Priority: High Current Visit: Yes (4) Hospital admission due to social situation SNOMED Code(s): 458917792 Code(s): Z60.9 - PROBLEM RELATED TO SOCIAL ENVIRONMENT, UNSPECIFIED Status: Acute Priority: High Current Visit: Yes (5) S/P placement of cardiac pacemaker SNOMED Code(s): 236696773, 166233622, 045884304 Code(s): Z95.0 - PRESENCE OF CARDIAC PACEMAKER Status: Chronic Priority: Low Current Visit: No (6) Confusion and disorientation SNOMED Code(s): 18392615, 38562584 Code(s): R41.0 - DISORIENTATION, UNSPECIFIED Status: Acute Current Visit: Yes (7) Cerebral aneurysm SNOMED Code(s): 145827734 Code(s): I67.1 - CEREBRAL ANEURYSM, NONRUPTURED Status: Chronic Priority: Low Current Visit: No - Problem List Review Problem List Initiated/Reviewed/Updated: Yes - My Orders Last 24 Hours: My Active Orders 03/22/20 08:34 CTA Head W & W/O Contrast [Ang Head] [CT] Routine 03/23/20 08:00 Consult to Occupational Therapy [OT Evaluation and Treatment] [CONS] Routine - Assessment Assessment:: Assessment on day of admission: 03/19/2020 * 84 yo male who reports to ED via ambulance with multiple falls and generalized weakness * Per , patient had been ambulating without difficulty until about a week ago * Per , patient is legally blind * Workup in ED basically unremarkable, however patient 2+ assist and unable to go home * Patient lives with in [place]. * Denies any injury or pain with falls * Denies any infectious symptoms * 12-lead EKG shows A-V paced rhythm * reports pacemaker was placed recently - well healing wound noted on left chest * CXR and CTA both show nothing acute. * Head CT negative for anything acute. There is some evidence of remote ischemic changes. * Labs in ED: * WBC 6.156 * Hgb 15.0 * Plt count 170 * Neutrophils 63% * D-Dimer 2.10 * Sodium 136 * Potassium 4.1 * Anion Gap 15.1 * BUN 18 * Creatinine 1.3 * GFR 52 * Magnesium 2.0 * Troponin 0.055 * Albumin 3.5 * TSH 1.778 * UA negative * SARS-CoV-2 screen negative * Vital signs stable 03/20/2020 * Remains weak but otherwise no complaints * Very large BM today per nursing * Labs show creatinine of 1.4 and GFR of 48 (slightly worse) * Electrolytes WNL * Vitamin B12, Folic acid, CRP all WNL * Vitamin D slightly low at 27.9 - supplementation started * A1C 6.0% * RPR negative * Working with PT/OT * No nursing or patient concerns. * Vital signs stable * Remains off of oxygen - Plan Plan:: Hospital admission due to social situation Generalized weakness Falls Legally blind * PT evaluation * CM/SW to work on placement * Ambulate with nursing S/P placement of cardiac pacemaker * No current concerns Cerebral aneurysm * No current concerns CAD (coronary artery disease) Heart failure History of [place] (myocardial infarction) S/P CABG x 2 * Continue home ASA HLD (hyperlipidemia) * Continue fenofibrate and Zetia HTN (hypertension) * Continue home Cozaar COPD (chronic obstructive pulmonary disease) * Non-treated * Stable with no concerns BPH (benign prostatic hyperplasia) * Continue flomax Depression * Continue home wellbutrin Hypothyroid * Continue home levothyroxine History of prediabetes, A1C 6.00% * ADA diet * Monitor daily blood sugars PCP: Dr. Larose DVT Prophylaxis: Lovenox GI Prophylaxis: Not indicated Social: Patient lives with in [place] Disposition: Patient admitted inpatient for generalized weakness and frequent falls, PT evaluation and likely placement. Prognosis: Good LOS >96 Hrs pending placement 03/21/2020 The patient has a pacemaker in place and therefore is not able to undergo an MRI. We will consider CTA of the head in place. Patient still remains confused and one-to-one sitter will be continued. We will continue to monitor the colin ent's vital signs and if he becomes hypoxic we will institute oxygen therapy. Laboratory studies have been ordered. We will continue to monitor and replace electrolytes as necessary. Currently awaiting placement. We will continue with PT OT. Will be monitored for falls. 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 The patient has been noticed to have a previous aneurysm. 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 The infarcts are in the frontal lobe and likely contributing to the patient's overall confusion. Patient will be maintained on fall risk. The patient will likely need to have long-term placement. Repeat laboratory studies have been ordered. Patient will be maintained on oxygen if necessary to keep his saturations above 90%. He will be continued on his appropriate ADA diet.
[2020-03-23] MEDS: Acetaminophen 325 MG Tab PO PRN (04:44)
[2020-03-23] MEDS: Levothyroxine 112 MCG Tab PO SCH (06:30)
[2020-03-23] MEDS: Enoxaparin 40 MG/0.4 ML Syringe SUBCUT SCH (09:20)
[2020-03-23] MEDS: Carboxymethylcellulose Sodium 1% Ophth Gel 15 ML Bottle EYEBOTH SCH (09:21)
[2020-03-23] MEDS: buPROPion 150 MG Tab.SR PO SCH (09:21)
[2020-03-23] MEDS: Tamsulosin 0.4 MG Cap.ER PO SCH (09:21)
[2020-03-23] MEDS: Cholecalciferol (Vitamin D3) 5,000 UNIT Cap PO SCH (09:21)
[2020-03-23] MEDS: Fluticasone Propionate Nasal Spray 16 GM Bottle NASBOTH SCH (09:21)
[2020-03-23] MEDS: Fenofibrate Nanocrystallized 145 MG Tab PO SCH (09:21)
[2020-03-23] MEDS: Ezetimibe 10 MG Tab PO SCH (09:22)
[2020-03-23] MEDS: Aspirin 81 MG Tab.Chew PO SCH (09:23)
[2020-03-23] MEDS: Losartan 25 MG Tab PO SCH (10:18)
[2020-03-23] MEDS: ISOSORBIDE MONONITRATE 20 MG PO SCH ×2 (10:19→20:43)
--- NOTE | 2020-03-23 11:53 | PCM.PN ---
- General Info Date of Service: 03/23/20 Admission Dx/Problem (Free Text): Admission Diagnosis/Problem Admission Diagnosis/Problem Failure to thrive Subjective Update: Patient is an 84-year-old gentleman who was admitted to acute hospitalization on March 19, 2020 due to failure to thrive, falling and fusion. The patient today says that he is doing somewhat better. Previous charting is indicated that he does have been inoperable cerebral aneurysm. Patient is somewhat confused this morning. Functional Status: Reports: Pain Controlled, Tolerating Diet - Review of Systems General: Reports: No Symptoms HEENT: Reports: No Symptoms Pulmonary: Reports: No Symptoms Cardiovascular: Reports: No Symptoms Gastrointestinal: Reports: No Symptoms Genitourinary: Reports: No Symptoms Musculoskeletal: Reports: No Symptoms Skin: Reports: No Symptoms Neurological: Reports: No Symptoms Psychiatric: Reports: No Symptoms - Patient Data Vitals - Most Recent: Last Vital Signs Temp 36.3 C 03/23/20 07:33 Pulse 67 03/23/20 07:33 Resp 16 03/23/20 07:33 BP 136/73 03/23/20 10:18 Pulse Ox 97 03/23/20 07:33 Orthostatic Blood Pressure [ 80/51 Standing] Orthostatic Blood Pressure [ 97/58 Supine] Weight - Most Recent: 102.058 kg I&O - Last 24 Hours: Intake & Output 03/22/20 03/23/20 03/23/20 22:59 06:59 14:59 Intake Total 850 1140 480 Output Total 1100 100 Balance -250 1040 480 Lab Results Last 24 Hours: Laboratory Results - last 24 hr 03/23/20 03/23/20 03/23/20 Range/Units 04:35 04:35 04:35 WBC 5.67 (4.23-9.07) K/mm3 RBC 4.88 (4.63-6.08) M/mm3 Hgb 14.2 (13.7-17.5) gm/dl Hct 42.5 (40.1-51.0) % MCV 87.1 (79.0-92.2) fl MCH 29.1 (25.7-32.2) pg MCHC 33.4 (32.2-35.5) g/dl RDW Std Deviation 46.4 H (35.1-43.9) fL Plt Count 145 L (163-337) K/mm3 MPV 9.4 (9.4-12.3) fl Neut % (Auto) 57.2 (34.0-67.9) % Lymph % (Auto) 25.6 (21.8-53.1) % [place] % (Auto) 13.6 H (5.3-12.2) % Eos % (Auto) 3.0 (0.8-7.0) Baso % (Auto) 0.2 (0.1-1.2) % Neut # (Auto) 3.25 (1.78-5.38) K/mm3 Lymph # (Auto) 1.45 (1.32-3.57) K/mm3 [place] # (Auto) 0.77 (0.30-0.82) K/mm3 Eos # (Auto) 0.17 (0.04-0.54) K/mm3 Baso # (Auto) 0.01 (0.01-0.08) K/mm3 D-Dimer, Quantitative 2.29 H (0.19-0.50) mg/L Sodium 132 L (136-145) mEq/L Potassium 4.2 (3.5-5.1) mEq/L Chloride 99 (98-107) mEq/L Carbon Dioxide 23 (21-32) mEq/L Anion Gap 14.2 (5-15) BUN 24 H (7-18) mg/dL Creatinine 1.3 (0.7-1.3) mg/dL Est Cr Clr Drug Dosing 42.90 mL/min Estimated GFR (MDRD) 52 (>60) mL/min BUN/Creatinine Ratio 18.5 H (14-18) Glucose 111 (83-115) mg/dL Calcium 8.8 (8.5-10.1) mg/dL Total Bilirubin 0.6 (0.2-1.0) mg/dL AST 27 (15-37) U/L ALT 27 (16-63) U/L Alkaline Phosphatase 54 (46-116) U/L Total Protein 6.6 (6.4-8.2) g/dl Albumin 3.3 L (3.4-5.0) g/dl Globulin 3.3 gm/dL Albumin/Globulin Ratio 1.0 (1-2) Iftikhar Results Last 24 Hours: Microbiology 03/19/20 07:49 Aerobic Blood Culture - Preliminary Blood - Venous - Lab Draw NO GROWTH AFTER 4 DAYS Anaerobic Blood Culture - Preliminary NO GROWTH AFTER 4 DAYS 03/19/20 07:39 Aerobic Blood Culture - Preliminary Blood - Venous NO GROWTH AFTER 4 DAYS Anaerobic Blood Culture - Preliminary NO GROWTH AFTER 4 DAYS Med Orders - Current: Current Medications Acetaminophen (Tylenol) 650 mg PO Q4H PRN PRN Reason: Pain (Mild 1-3)/fever Last Admin: 03/23/20 04:44 Dose: 650 mg Documented by: Artificial Tears (Refresh Liquigel 1%) 0 ml EYEBOTH DAILY [facility] Last Admin: 03/23/20 09:21 Dose: 1 drop Documented by: Aspirin (Aspirin) 81 mg PO DAILY [facility] Last Admin: 03/23/20 09:23 Dose: 81 mg Documented by: Bupropion HCl (Wellbutrin Sr) 150 mg PO DAILY [facility] Last Admin: 03/23/20 09:21 Dose: 150 mg Documented by: Cholecalciferol (Vitamin D3) 5,000 unit PO DAILY [facility] Last Admin: 03/23/20 09:21 Dose: 5,000 unit Documented by: Docusate Sodium (Colace) 100 mg PO BID PRN PRN Reason: Constipation Ezetimibe (Zetia) 10 mg PO DAILY [facility] Last Admin: 03/23/20 09:22 Dose: 10 mg Documented by: Enoxaparin Sodium (Lovenox) 40 mg SUBCUT DAILY [facility] Last Admin: 03/23/20 09:20 Dose: 40 mg Documented by: Fenofibrate (Tricor) 145 mg PO DAILY [facility] Last Admin: 03/23/20 09:21 Dose: 145 mg Documented by: Fluticasone Propionate (Flonase) 0 gm NASBOTH DAILY [facility] Last Admin: 03/23/20 09:21 Dose: 1 spray Documented by: Levothyroxine Sodium (Levothyroxine) 112 mcg PO ACBREAKFAST [facility] Last Admin: 03/23/20 06:30 Dose: 112 mcg Documented by: Losartan Potassium (Cozaar) 50 mg PO DAILY [facility] Last Admin: 03/23/20 10:18 Dose: 50 mg Documented by: Ondansetron HCl (Zofran) 4 mg IV Q6H PRN PRN Reason: Nausea/Vomiting Isosorbide Mononitrate 20 Mg Ptom 0 each PO BID [facility] Last Admin: 03/23/20 10:19 Dose: 1 each Documented by: Sodium Chloride (Saline Flush) 10 ml FLUSH ONETIME PRN PRN Reason: IV FLUSH Last Admin: 03/19/20 09:02 Dose: 10 ml Documented by: Tamsulosin HCl (Flomax) 0.4 mg PO DAILY [facility] Last Admin: 03/23/20 09:21 Dose: 0.4 mg Documented by: Discontinued Medications Docusate Sodium (Colace) 100 mg PO BID [facility] Last Admin: 03/20/20 08:34 Dose: 100 mg Documented by: Sodium Chloride (Normal Saline) 100 mls @ 75 mls/hr IV ASDIRECTED [facility] Last Admin: 03/19/20 09:02 Dose: 75 mls/hr Documented by: Iopamidol (Isovue-370 (76%)) 50 ml IVPUSH ONETIME ONE Stop: 03/19/20 08:56 Last Admin: 03/19/20 09:02 Dose: 50 ml Documented by: Iopamidol (Isovue-370 (76%)) 100 ml IVPUSH ONETIME ONE Stop: 03/19/20 08:56 Last Admin: 03/19/20 09:02 Dose: 100 ml Documented by: Isosorbide Dinitrate (Isordil) 20 mg PO ONETIME ONE Stop: 03/19/20 20:58 Last Admin: 03/19/20 21:26 Dose: 20 mg Documented by: Isosorbide Mononitrate 20 Mg Ptom 0 each PO BID [facility] Last Admin: 03/22/20 09:59 Dose: Not Given Documented by: Senna (Senna) 17.2 mg PO BID [facility] Last Admin: 03/21/20 01:21 Dose: Not Given Documented by: - Exam Quality Assessment: No: Supplemental Oxygen General: Alert, Other (Confused). No: Oriented HEENT: Pupils Equal, Pupils Reactive Neck: Supple, Trachea Midline Lungs: Clear to Auscultation, Normal Respiratory Effort Cardiovascular: Regular Rate, Regular Rhythm GI/Abdominal Exam: Normal Bowel Sounds, Soft, No Distention (Male) Exam: Deferred Back Exam: Normal Inspection, Full Range of Motion Extremities: Normal Inspection, No Pedal Edema Skin: Warm, Dry, Intact Neurological: No New Focal Deficit Psy/Mental Status: Alert Sepsis Event Note - Evaluation Sepsis Screening Result: No Definite Risk - Focused Exam Vital Signs: Vital Signs Temp Pulse Resp BP Pulse Ox 03/23/20 10:18 136/73 03/23/20 07:33 36.3 C 67 16 136/73 97 03/23/20 04:35 37.1 C 62 15 134/68 95 03/23/20 00:28 36.4 C 67 18 112/66 97 - Problem List & Annotations (1) Multi-infarct dementia SNOMED Code(s): 33002132 Code(s): F01.50 - VASCULAR DEMENTIA WITHOUT BEHAVIORAL DISTURBANCE Status: Acute Current Visit: Yes Qualifiers: Dementia behavioral disturbance: without behavioral disturbance Qualified Code(s): F01.50 - Vascular dementia without behavioral disturbance (2) Falls SNOMED Code(s): 1977950, 056413563 Code(s): W19.XXXA - UNSPECIFIED FALL, INITIAL ENCOUNTER Status: Acute Priority: High Current Visit: Yes Qualifiers: Encounter type: initial encounter Qualified Code(s): W19.XXXA - Unspecified fall, initial encounter (3) Generalized weakness SNOMED Code(s): 18910840 Code(s): R53.1 - WEAKNESS Status: Acute Priority: High Current Visit: Yes (4) Hospital admission due to social situation SNOMED Code(s): 742462605 Code(s): Z60.9 - PROBLEM RELATED TO SOCIAL ENVIRONMENT, UNSPECIFIED Status: Acute Priority: High Current Visit: Yes (5) S/P placement of cardiac pacemaker SNOMED Code(s): 278236170, 507196374, 700287361 Code(s): Z95.0 - PRESENCE OF CARDIAC PACEMAKER Status: Chronic Priority: Low Current Visit: No (6) Confusion and disorientation SNOMED Code(s): 61606837, 04695012 Code(s): R41.0 - DISORIENTATION, UNSPECIFIED Status: Acute Current Visit: Yes (7) Cerebral aneurysm SNOMED Code(s): 879345255 Code(s): I67.1 - CEREBRAL ANEURYSM, NONRUPTURED Status: Chronic Priority: Low Current Visit: No - Problem List Review Problem List Initiated/Reviewed/Updated: Yes - My Orders Last 24 Hours: My Active Orders 03/22/20 23:02 Knee 1V or 2V Lt [CR] Routine 03/23/20 08:00 Consult to Occupational Therapy [OT Evaluation and Treatment] [CONS] Routine - Assessment Assessment:: Assessment on day of admission: 03/19/2020 * 84 yo male who reports to ED via ambulance with multiple falls and generalized weakness * Per , patient had been ambulating without difficulty until about a week ago * Per , patient is legally blind * Workup in ED basically unremarkable, however patient 2+ assist and unable to go home * Patient lives with in [place]. * Denies any injury or pain with falls * Denies any infectious symptoms * 12-lead EKG shows A-V paced rhythm * reports pacemaker was placed recently - well healing wound noted on left chest * CXR and CTA both show nothing acute. * Head CT negative for anything acute. There is some evidence of remote ischemic changes. * Labs in ED: * WBC 6.156 * Hgb 15.0 * Plt count 170 * Neutrophils 63% * D-Dimer 2.10 * Sodium 136 * Potassium 4.1 * Anion Gap 15.1 * BUN 18 * Creatinine 1.3 * GFR 52 * Magnesium 2.0 * Troponin 0.055 * Albumin 3.5 * TSH 1.778 * UA negative * SARS-CoV-2 screen negative * Vital signs stable 03/20/2020 * Remains weak but otherwise no complaints * Very large BM today per nursing * Labs show creatinine of 1.4 and GFR of 48 (slightly worse) * Electrolytes WNL * Vitamin B12, Folic acid, CRP all WNL * Vitamin D slightly low at 27.9 - supplementation started * A1C 6.0% * RPR negative * Working with PT/OT * No nursing or patient concerns. * Vital signs stable * Remains off of oxygen - Plan Plan:: Hospital admission due to social situation Generalized weakness Falls Legally blind * PT evaluation * CM/SW to work on placement * Ambulate with nursing S/P placement of cardiac pacemaker * No current concerns Cerebral aneurysm * No current concerns CAD (coronary artery disease) Heart failure History of IA (myocardial infarction) S/P CABG x 2 * Continue home ASA HLD (hyperlipidemia) * Continue fenofibrate and Zetia HTN (hypertension) * Continue home Cozaar COPD (chronic obstructive pulmonary disease) * Non-treated * Stable with no concerns BPH (benign prostatic hyperplasia) * Continue flomax Depression * Continue home wellbutrin Hypothyroid * Continue home levothyroxine History of prediabetes, A1C 6.00% * ADA diet * Monitor daily blood sugars PCP: Dr. Larose DVT Prophylaxis: Lovenox GI Prophylaxis: Not indicated Social: Patient lives with in [place] Disposition: Patient admitted inpatient for generalized weakness and frequent falls, PT evaluation and likely placement. Prognosis: Good LOS >96 Hrs pending placement 03/21/2020 The patient has a pacemaker in place and therefore is not able to undergo an MRI. We will consider CTA of the head in place. Patient still remains confused and one-to-one sitter will be continued. We will continue to monitor the patient's vital signs and if he becomes hypoxic we will institute oxygen therapy. Laboratory studies have been ordered. We will continue to monitor and replace electrolytes as necessary. Currently awaiting placement. We will continue with PT OT. Will be monitored for falls. 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 The patient has been noticed to have a previous aneurysm. 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 The infarcts are in the frontal lobe and likely contributing to the patient's overall confusion. Patient will be maintained on fall risk. The patient will likely need to have long-term placement. Repeat laboratory studies have been ordered. Patient will be maintained on oxygen if necessary to keep his saturations above 90%. He will be continued on his appropriate ADA diet. 03/23/2020 The patient remains confused. The aneurysm that had been noted previously on the CT angiogram is chronic in nature and inoperable. This is likely the source of the patient's multiinfarct noted in his frontal lobe. This likely represents that the patient has worsening multi-infarct dementia. 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 The patient would be appropriate for consideration with placement likely in a skilled facility. Today he is currently in a full CODE STATUS and this will be honored. The patient should also ambulate with assistance. PT OT has also been ordered for the patient. He will be kept on the appropriate ADA diet. Patient will also be maintained on oxygen to keep his saturations above 90%.
[2020-03-24] MEDS: Levothyroxine 112 MCG Tab PO SCH (05:43)
[2020-03-24] MEDS: Cholecalciferol (Vitamin D3) 5,000 UNIT Cap PO SCH (08:30)
[2020-03-24] MEDS: Ezetimibe 10 MG Tab PO SCH (08:30)
[2020-03-24] MEDS: Carboxymethylcellulose Sodium 1% Ophth Gel 15 ML Bottle EYEBOTH SCH (08:30)
[2020-03-24] MEDS: buPROPion 150 MG Tab.SR PO SCH (08:30)
[2020-03-24] MEDS: Tamsulosin 0.4 MG Cap.ER PO SCH (08:30)
[2020-03-24] MEDS: Fenofibrate Nanocrystallized 145 MG Tab PO SCH (08:30)
[2020-03-24] MEDS: Enoxaparin 40 MG/0.4 ML Syringe SUBCUT SCH (08:30)
[2020-03-24] MEDS: Aspirin 81 MG Tab.Chew PO SCH (08:30)
[2020-03-24] MEDS: Fluticasone Propionate Nasal Spray 16 GM Bottle NASBOTH SCH (08:30)
[2020-03-24] MEDS: Losartan 25 MG Tab PO SCH (08:31)
[2020-03-24] MEDS: ISOSORBIDE MONONITRATE 20 MG PO SCH ×2 (08:35→21:08)
[2020-03-24] MEDS: Furosemide 40 MG Tab PO SCH (12:46)
--- NOTE | 2020-03-24 13:03 | PCM.PN ---
<OlgaHilaria M - Last Filed: 03/24/20 13:05> - General Info Date of Service: 03/24/20 Admission Dx/Problem (Free Text): Admission Diagnosis/Problem Admission Diagnosis/Problem Failure to thrive Subjective Update: Vital signs stable eating well. Is having anxiety over new diagnosis of dementia. Needs frequent reinforcement regarding discharge placement. Functional Status: Reports: Pain Controlled, Tolerating Diet, Ambulating (Assistance), Urinating (Incontinent) - Review of Systems General: Reports: Weakness HEENT: Reports: Other (Macular degeneration) Pulmonary: Reports: No Symptoms Cardiovascular: Reports: No Symptoms Gastrointestinal: Reports: No Symptoms Genitourinary: Reports: Incontinence Musculoskeletal: Reports: Joint Pain (Left knee) Skin: Reports: No Symptoms Neurological: Reports: Confusion, Trouble Speaking, Difficulty Walking, Gait Disturbance Psychiatric: Reports: Confusion, Anxiety - Patient Data Vitals - Most Recent: Last Vital Signs Temp 97.7 F 03/24/20 12:00 Pulse 63 03/24/20 12:19 Resp 16 03/24/20 12:00 BP 122/92 H 03/24/20 12:19 Pulse Ox 97 03/24/20 12:19 Orthostatic Blood Pressure [ 80/51 Standing] Orthostatic Blood Pressure [ 97/58 Supine] Weight - Most Recent: 102.557 kg I&O - Last 24 Hours: Intake & Output 03/23/20 03/24/20 03/24/20 22:59 06:59 14:59 Intake Total 2160 800 540 Output Total 975 875 500 Balance 1185 -75 40 Lab Results Last 24 Hours: Laboratory Results - last 24 hr 03/24/20 03/24/20 Range/Units 05:41 05:41 WBC 4.75 (4.23-9.07) K/mm3 RBC 4.95 (4.63-6.08) M/mm3 Hgb 14.1 (13.7-17.5) gm/dl Hct 42.6 (40.1-51.0) % MCV 86.1 (79.0-92.2) fl MCH 28.5 (25.7-32.2) pg MCHC 33.1 (32.2-35.5) g/dl RDW Std Deviation 45.5 H (35.1-43.9) fL Plt Count 156 L (163-337) K/mm3 MPV 9.5 (9.4-12.3) fl Neut % (Auto) 57.2 (34.0-67.9) % Lymph % (Auto) 25.5 (21.8-53.1) % [place] % (Auto) 13.7 H (5.3-12.2) % Eos % (Auto) 3.2 (0.8-7.0) Baso % (Auto) 0.2 (0.1-1.2) % Neut # (Auto) 2.72 (1.78-5.38) K/mm3 Lymph # (Auto) 1.21 L (1.32-3.57) K/mm3 [place] # (Auto) 0.65 (0.30-0.82) K/mm3 Eos # (Auto) 0.15 (0.04-0.54) K/mm3 Baso # (Auto) 0.01 (0.01-0.08) K/mm3 Sodium 130 L (136-145) mEq/L Potassium 4.4 (3.5-5.1) mEq/L Chloride 97 L (98-107) mEq/L Carbon Dioxide 20 L (21-32) mEq/L Anion Gap 17.4 H (5-15) BUN 19 H (7-18) mg/dL Creatinine 1.2 (0.7-1.3) mg/dL Est Cr Clr Drug Dosing 46.47 mL/min Estimated GFR (MDRD) 58 (>60) mL/min BUN/Creatinine Ratio 15.8 (14-18) Glucose 108 (83-115) mg/dL Calcium 8.7 (8.5-10.1) mg/dL Magnesium 2.0 (1.8-2.4) mg/dl Iftikhar Results Last 24 Hours: Microbiology 03/19/20 07:49 Aerobic Blood Culture - Preliminary Blood - Venous - Lab Draw NO GROWTH AFTER 5 DAYS Anaerobic Blood Culture - Preliminary NO GROWTH AFTER 5 DAYS 03/19/20 07:39 Aerobic Blood Culture - Preliminary Blood - Venous NO GROWTH AFTER 5 DAYS Anaerobic Blood Culture - Preliminary NO GROWTH AFTER 5 DAYS Med Orders - Current: Current Medications Acetaminophen (Tylenol) 650 mg PO Q4H PRN PRN Reason: Pain (Mild 1-3)/fever Last Admin: 03/23/20 04:44 Dose: 650 mg Documented by: Artificial Tears (Refresh Liquigel 1%) 0 ml EYEBOTH DAILY [facility] Last Admin: 03/24/20 08:30 Dose: 1 drop Documented by: Aspirin (Aspirin) 81 mg PO DAILY [facility] Last Admin: 03/24/20 08:30 Dose: 81 mg Documented by: Bupropion HCl (Wellbutrin Sr) 150 mg PO DAILY [facility] Last Admin: 03/24/20 08:30 Dose: 150 mg Documented by: Cholecalciferol (Vitamin D3) 5,000 unit PO DAILY [facility] Last Admin: 03/24/20 08:30 Dose: 5,000 unit Documented by: Docusate Sodium (Colace) 100 mg PO BID PRN PRN Reason: Constipation Ezetimibe (Zetia) 10 mg PO DAILY [facility] Last Admin: 03/24/20 08:30 Dose: 10 mg Documented by: Enoxaparin Sodium (Lovenox) 40 mg SUBCUT DAILY [facility] Last Admin: 03/24/20 08:30 Dose: 40 mg Documented by: Fenofibrate (Tricor) 145 mg PO DAILY [facility] Last Admin: 03/24/20 08:30 Dose: 145 mg Documented by: Fluticasone Propionate (Flonase) 0 gm NASBOTH DAILY [facility] Last Admin: 03/24/20 08:30 Dose: 1 spray Documented by: Furosemide (Lasix) 40 mg PO DAILY [facility] Last Admin: 03/24/20 12:46 Dose: 40 mg Documented by: Levothyroxine Sodium (Levothyroxine) 112 mcg PO ACBREAKFAST [facility] Last Admin: 03/24/20 05:43 Dose: 112 mcg Documented by: Losartan Potassium (Cozaar) 50 mg PO DAILY [facility] Last Admin: 03/24/20 08:31 Dose: 50 mg Documented by: Ondansetron HCl (Zofran) 4 mg IV Q6H PRN PRN Reason: Nausea/Vomiting Isosorbide Mononitrate 20 Mg Ptom 0 each PO BID [facility] Last Admin: 03/24/20 08:35 Dose: 1 each Documented by: Tamsulosin HCl (Flomax) 0.4 mg PO DAILY [facility] Last Admin: 03/24/20 08:30 Dose: 0.4 mg Documented by: Discontinued Medications Docusate Sodium (Colace) 100 mg PO BID [facility] Last Admin: 03/20/20 08:34 Dose: 100 mg Documented by: Sodium Chloride (Normal Saline) 100 mls @ 75 mls/hr IV ASDIRECTED [facility] Last Admin: 03/19/20 09:02 Dose: 75 mls/hr Documented by: Iopamidol (Isovue-370 (76%)) 50 ml IVPUSH ONETIME ONE Stop: 03/19/20 08:56 Last Admin: 03/19/20 09:02 Dose: 50 ml Documented by: Iopamidol (Isovue-370 (76%)) 100 ml IVPUSH ONETIME ONE Stop: 03/19/20 08:56 Last Admin: 03/19/20 09:02 Dose: 100 ml Documented by: Isosorbide Dinitrate (Isordil) 20 mg PO ONETIME ONE Stop: 03/19/20 20:58 Last Admin: 03/19/20 21:26 Dose: 20 mg Documented by: Isosorbide Mononitrate 20 Mg Ptom 0 each PO BID [facility] Last Admin: 03/22/20 09:59 Dose: Not Given Documented by: Senna (Senna) 17.2 mg PO BID [facility] Last Admin: 03/21/20 01:21 Dose: Not Given Documented by: Sodium Chloride (Saline Flush) 10 ml FLUSH ONETIME PRN PRN Reason: IV FLUSH Last Admin: 03/19/20 09:02 Dose: 10 ml Documented by: - Exam Quality Assessment: DVT Prophylaxis (Lovenox). No: Supplemental Oxygen General: Alert, Cooperative. No: Oriented (To person and place only) HEENT: Pupils Equal, Mucous Membr. Moist/[place] Neck: Supple, Trachea Midline. No: Lymphadenopathy Lungs: Normal Respiratory Effort, Decreased Breath Sounds Cardiovascular: Regular Rate, Regular Rhythm, Murmurs GI/Abdominal Exam: Normal Bowel Sounds, Soft, Non-Tender, No Distention (Male) Exam: Deferred Back Exam: Normal Inspection, Full Range of Motion Extremities: Normal Inspection, Normal Range of Motion, Non-Tender, No Pedal Edema, Normal Capillary Refill Peripheral Pulses: 2+: Radial (L), Radial (R), Dorsalis Pedis (L), Dorsalis Pedis (R) Skin: Warm, Dry, Intact Neurological: No New Focal Deficit Psy/Mental Status: Alert, Anxious Sepsis Event Note - Evaluation Sepsis Screening Result: No Definite Risk - Focused Exam Vital Signs: Vital Signs Temp Temp Pulse Pulse Resp BP BP 03/24/20 12:19 63 122/92 H 03/24/20 12:00 97.7 F 16 122/92 H 03/24/20 08:31 127/62 03/24/20 07:55 98.8 F 68 18 127/62 03/24/20 03:45 97.5 F 67 18 104/52 L Pulse Ox 03/24/20 12:19 97 03/24/20 12:00 97 03/24/20 08:31 03/24/20 07:55 96 03/24/20 03:45 94 L - Problem List & Annotations (1) Confusion and disorientation SNOMED Code(s): 56054373, 55288900 Code(s): R41.0 - DISORIENTATION, UNSPECIFIED Status: Acute Priority: High Current Visit: Yes (2) Falls SNOMED Code(s): 4639071, 962340445 Code(s): W19.XXXA - UNSPECIFIED FALL, INITIAL ENCOUNTER Status: Acute Priority: High Current Visit: Yes Qualifiers: Encounter type: initial encounter Qualified Code(s): W19.XXXA - Unspecified fall, initial encounter (3) Generalized weakness SNOMED Code(s): 62131941 Code(s): R53.1 - WEAKNESS Status: Acute Priority: High Current Visit: Yes (4) Hospital admission due to social situation SNOMED Code(s): 781205941 Code(s): Z60.9 - PROBLEM RELATED TO SOCIAL ENVIRONMENT, UNSPECIFIED Status: Acute Priority: High Current Visit: Yes (5) Multi-infarct dementia SNOMED Code(s): 69404659 Code(s): F01.50 - VASCULAR DEMENTIA WITHOUT BEHAVIORAL DISTURBANCE Status: Acute Priority: High Current Visit: Yes Qualifiers: Dementia behavioral disturbance: without behavioral disturbance Qualified Code(s): F01.50 - Vascular dementia without behavioral disturbance (6) Cerebral aneurysm SNOMED Code(s): 423199491 Code(s): I67.1 - CEREBRAL ANEURYSM, NONRUPTURED Status: Chronic Priority: Low Current Visit: No (7) S/P placement of cardiac pacemaker SNOMED Code(s): 616472496, 113483829, 008899637 Code(s): Z95.0 - PRESENCE OF CARDIAC PACEMAKER Status: Chronic Priority: Low Current Visit: No - Problem List Review Problem List Initiated/Reviewed/Updated: Yes - My Orders Last 24 Hours: My Active Orders 03/24/20 12:00 Furosemide [Lasix] 40 mg PO DAILY - Assessment Assessment:: Assessment on day of admission: 03/19/2020 * 84 yo male who reports to ED via ambulance with multiple falls and generalized weakness * Per , patient had been ambulating without difficulty until about a week ago * Per , patient is legally blind * Workup in ED basically unremarkable, however patient 2+ assist and unable to go home * Patient lives with in [place]. * Denies any injury or pain with falls * Denies any infectious symptoms * 12-lead EKG shows A-V paced rhythm * reports pacemaker was placed recently - well healing wound noted on left chest * CXR and CTA both show nothing acute. * Head CT negative for anything acute. There is some evidence of remote ischemic changes. * Labs in ED: * WBC 6.156 * Hgb 15.0 * Plt count 170 * Neutrophils 63% * D-Dimer 2.10 * Sodium 136 * Potassium 4.1 * Anion Gap 15.1 * BUN 18 * Creatinine 1.3 * GFR 52 * Magnesium 2.0 * Troponin 0.055 * Albumin 3.5 * TSH 1.778 * UA negative * SARS-CoV-2 screen negative * Vital signs stable 03/20/2020 * Remains weak but otherwise no complaints * Very large BM today per nursing * Labs show creatinine of 1.4 and GFR of 48 (slightly worse) * Electrolytes WNL * Vitamin B12, Folic acid, CRP all WNL * Vitamin D slightly low at 27.9 - supplementation started * A1C 6.0% * RPR negative * Working with PT/OT * No nursing or patient concerns. * Vital signs stable * Remains off of oxygen 03/21/2020 The patient has a pacemaker in place and therefore is not able to undergo an MRI. We will consider CTA of the head in place. Patient still remains confused and one-to-one sitter will be continued. We will continue to monitor the patient's vital signs and if he becomes hypoxic we will institute oxygen therapy. Laboratory studies have been ordered. We will continue to monitor and replace electrolytes as necessary. Currently awaiting placement. We will continue with PT OT. Will be monitored for falls. 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 The patient has been noticed to have a previous aneurysm. 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 The infarcts are in the frontal lobe and likely contributing to the patient's overall confusion. Patient will be maintained on fall risk. The patient will likely need to have long-term placement. Repeat laboratory studies have been ordered. Patient will be maintained on oxygen if necessary to keep his saturations above 90%. He will be continued on his appropriate ADA diet. 03/23/2020 The patient remains confused. The aneurysm that had been noted previously on the CT angiogram is chronic in nature and inoperable. This is likely the source of the patient's multiinfarct noted in his frontal lobe. This likely repr esents that the patient has worsening multi-infarct dementia. 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 The patient would be appropriate for consideration with placement likely in a skilled facility. Today he is currently in a full CODE STATUS and this will be honored. The patient should also ambulate with assistance. PT OT has also been ordered for the patient. He will be kept on the appropriate ADA diet. Patient will also be maintained on oxygen to keep his saturations above 90%. 03/24/20 Remains confused. Is having anxiety regarding prison placement. He is worried that he has not been to be able to return home. Needs continued encouragement that if he gets stronger he may be able to return home as his home is handicap accessible. Also having anxiety regarding dementia diagnosis. Vital signs remained stable and he is 94 to 98% on room air. CBC was unremarkable however his sodium went from 132 down to 130. The patient's weight is up from admit. In the last 24 hours he is +1290 on fluid intake. Upon further investigation, it was discovered that patient was supposed to be taking Lasix 40 mg daily. This was not on his home medication list. We called Dr. Larose's office and she verified that this indeed was the dosage of Lasix he is supposed to be taking daily. This will be restarted today. Hopefully with this addition his sodium level will begin to go back up. PT and OT will be working with the patient as well. - Plan Plan:: Hospital admission due to social situation Generalized weakness Falls Legally blind * PT evaluation * CM/SW to work on placement * Ambulate with nursing S/P placement of cardiac pacemaker * No current concerns Cerebral aneurysm * No current concerns CAD (coronary artery disease) Heart failure History of IL (myocardial infarction) S/P CABG x 2 * Continue home ASA HLD (hyperlipidemia) * Continue fenofibrate and Zetia HTN (hypertension) * Continue home Cozaar COPD (chronic obstructive pulmonary disease) * Non-treated * Stable with no concerns BPH (benign prostatic hyperplasia) * Continue flomax Depression * Continue home wellbutrin Hypothyroid * Continue home levothyroxine History of prediabetes, A1C 6.00% * ADA diet * Monitor daily blood sugars PCP: Dr. Larose DVT Prophylaxis: Lovenox GI Prophylaxis: Not indicated Social: Patient lives with in [place] Disposition: Patient admitted inpatient for generalized weakness and frequent falls, PT evaluation and likely placement. Prognosis: Good LOS >96 Hrs pending placement 03/21/2020 The patient has a pacemaker in place and therefore is not able to undergo an MRI. We will consider CTA of the head in place. Patient still remains confused and one-to-one sitter will be continued. We will continue to monitor the patient's vital signs and if he becomes hypoxic we will institute oxygen therapy. Laboratory studies have been ordered. We will continue to monitor and replace electrolytes as necessary. Currently awaiting placement. We will continue with PT OT. Will be monitored for falls. 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 The patient has been n oticed to have a previous aneurysm. 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 The infarcts are in the frontal lobe and likely contributing to the patient's overall confusion. Patient will be maintained on fall risk. The patient will likely need to have long-term placement. Repeat laboratory studies have been ordered. Patient will be maintained on oxygen if necessary to keep his saturations above 90%. He will be continued on his appropriate ADA diet. 03/23/2020 The patient remains confused. The aneurysm that had been noted previously on the CT angiogram is chronic in nature and inoperable. This is likely the source of the patient's multiinfarct noted in his frontal lobe. This likely represents that the patient has worsening multi-infarct dementia. 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 The patient would be appropriate for consideration with placement likely in a skilled facility. Today he is currently in a full CODE STATUS and this will be honored. The patient should also ambulate with assistance. PT OT has also been ordered for the patient. He will be kept on the appropriate ADA diet. Patient will also be maintained on oxygen to keep his saturations above 90%. 03/24/20 Therapies to continue working with the patient. Case management and social work to continue with placement options at a care home facility as of this time patient is not able to be safely returning to home. Restart Lasix 40 mg daily as he was taking this intermittently prior to being admitted to the hospital. Lovenox for DVT prophylaxis. Continue strict ADIA and daily weights. <Derick Tamayo - Last Filed: 03/24/20 14:55> - Patient Data Vitals - Most Recent: Last Vital Signs Temp 36.5 C 03/24/20 12:00 Pulse 63 03/24/20 12:19 Resp 16 03/24/20 12:00 BP 122/92 H 03/24/20 12:19 Pulse Ox 97 03/24/20 12:19 Orthostatic Blood Pressure [ 80/51 Standing] Orthostatic Blood Pressure [ 97/58 Supine] I&O - Last 24 Hours: Intake & Output 03/23/20 03/24/20 03/24/20 22:59 06:59 14:59 Intake Total 2160 800 540 Output Total 975 875 500 Balance 1185 -75 40 Lab Results Last 24 Hours: Laboratory Results - last 24 hr 03/24/20 03/24/20 Range/Units 05:41 05:41 WBC 4.75 (4.23-9.07) K/mm3 RBC 4.95 (4.63-6.08) M/mm3 Hgb 14.1 (13.7-17.5) gm/dl Hct 42.6 (40.1-51.0) % MCV 86.1 (79.0-92.2) fl MCH 28.5 (25.7-32.2) pg MCHC 33.1 (32.2-35.5) g/dl RDW Std Deviation 45.5 H (35.1-43.9) fL Plt Count 156 L (163-337) K/mm3 MPV 9.5 (9.4-12.3) fl Neut % (Auto) 57.2 (34.0-67.9) % Lymph % (Auto) 25.5 (21.8-53.1) % [place] % (Auto) 13.7 H (5.3-12.2) % Eos % (Auto) 3.2 (0.8-7.0) Baso % (Auto) 0.2 (0.1-1.2) % Neut # (Auto) 2.72 (1.78-5.38) K/mm3 Lymph # (Auto) 1.21 L (1.32-3.57) K/mm3 [place] # (Auto) 0.65 (0.30-0.82) K/mm3 Eos # (Auto) 0.15 (0.04-0.54) K/mm3 Baso # (Auto) 0.01 (0.01-0.08) K/mm3 Sodium 130 L (136-145) mEq/L Potassium 4.4 (3.5-5.1) mEq/L Chloride 97 L (98-107) mEq/L Carbon Dioxide 20 L (21-32) mEq/L Anion Gap 17.4 H (5-15) BUN 19 H (7-18) mg/dL Creatinine 1.2 (0.7-1.3) mg/dL Est Cr Clr Drug Dosing 46.47 mL/min Estimated GFR (MDRD) 58 (>60) mL/min BUN/Creatinine Ratio 15.8 (14-18) Glucose 108 (83-115) mg/dL Calcium 8.7 (8.5-10.1) mg/dL Magnesium 2.0 (1.8-2.4) mg/dl Iftikhar Results Last 24 Hours: Microbiology 03/19/20 07:49 Aerobic Blood Culture - Preliminary Blood - Venous - Lab Draw NO GROWTH AFTER 5 DAYS Anaerobic Blood Culture - Preliminary NO GROWTH AFTER 5 DAYS 03/19/20 07:39 Aerobic Blood Culture - Preliminary Blood - Venous NO GROWTH AFTER 5 DAYS Anaerobic Blood Culture - Preliminary NO GROWTH AFTER 5 DAYS Med Orders - Current: Current Medications Acetaminophen (Tylenol) 650 mg PO Q4H PRN PRN Reason: Pain (Mild 1-3)/fever Last Admin: 03/23/20 04:44 Dose: 650 mg Documented by: Artificial Tears (Refresh Liquigel 1%) 0 ml EYEBOTH DAILY [facility] Last Admin: 03/24/20 08:30 Dose: 1 drop Documented by: Aspirin (Aspirin) 81 mg PO DAILY [facility] Last Admin: 03/24/20 08:30 Dose: 81 mg Documented by: Bupropion HCl (Wellbutrin Sr) 150 mg PO DAILY [facility] Last Admin: 03/24/20 08:30 Dose: 150 mg Documented by: Cholecalciferol (Vitamin D3) 5,000 unit PO DAILY [facility] Last Admin: 03/24/20 08:30 Dose: 5,000 unit Documented by: Docusate Sodium (Colace) 100 mg PO BID PRN PRN Reason: Constipation Ezetimibe (Zetia) 10 mg PO DAILY [facility] Last Admin: 03/24/20 08:30 Dose: 10 mg Documented by: Enoxaparin Sodium (Lovenox) 40 mg SUBCUT DAILY [facility] Last Admin: 03/24/20 08:30 Dose: 40 mg Documented by: Fenofibrate (Tricor) 145 mg PO DAILY [facility] Last Admin: 03/24/20 08:30 Dose: 145 mg Documented by: Fluticasone Propionate (Flonase) 0 gm NASBOTH DAILY [facility] Last Admin: 03/24/20 08:30 Dose: 1 spray Documented by: Furosemide (Lasix) 40 mg PO DAILY [facility] Last Admin: 03/24/20 12:46 Dose: 40 mg Documented by: Levothyroxine Sodium (Levothyroxine) 112 mcg PO ACBREAKFAST [facility] Last Admin: 03/24/20 05:43 Dose: 112 mcg Documented by: Losartan Potassium (Cozaar) 50 mg PO DAILY [facility] Last Admin: 03/24/20 08:31 Dose: 50 mg Documented by: Ondansetron HCl (Zofran) 4 mg IV Q6H PRN PRN Reason: Nausea/Vomiting Isosorbide Mononitrate 20 Mg Ptom 0 each PO BID [facility] Last Admin: 03/24/20 08:35 Dose: 1 each Documented by: Tamsulosin HCl (Flomax) 0.4 mg PO DAILY [facility] Last Admin: 03/24/20 08:30 Dose: 0.4 mg Documented by: Discontinued Medications Docusate Sodium (Colace) 100 mg PO BID [facility] Last Admin: 03/20/20 08:34 Dose: 100 mg Documented by: Sodium Chloride (Normal Saline) 100 mls @ 75 mls/hr IV ASDIRECTED [facility] Last Admin: 03/19/20 09:02 Dose: 75 mls/hr Documented by: Iopamidol (Isovue-370 (76%)) 50 ml IVPUSH ONETIME ONE Stop: 03/19/20 08:56 Last Admin: 03/19/20 09:02 Dose: 50 ml Documented by: Iopamidol (Isovue-370 (76%)) 100 ml IVPUSH ONETIME ONE Stop: 03/19/20 08:56 Last Admin: 03/19/20 09:02 Dose: 100 ml Documented by: Isosorbide Dinitrate (Isordil) 20 mg PO ONETIME ONE Stop: 03/19/20 20:58 Last Admin: 03/19/20 21:26 Dose: 20 mg Documented by: Isosorbide Mononitrate 20 Mg Ptom 0 each PO BID [facility] Last Admin: 03/22/20 09:59 Dose: Not Given Documented by: Senna (Senna) 17.2 mg PO BID [facility] Last Admin: 03/21/20 01:21 Dose: Not Given Documented by: Sodium Chloride (Saline Flush) 10 ml FLUSH ONETIME PRN PRN Reason: IV FLUSH Last Admin: 03/19/20 09:02 Dose: 10 ml Documented by: Sepsis Event Note - Focused Exam Vital Signs: Vital Signs Temp Temp Pulse Pulse Resp BP BP 03/24/20 12:19 63 122/92 H 03/24/20 12:00 36.5 C 16 122/92 H 03/24/20 08:31 127/62 03/24/20 07:55 37.1 C 68 18 127/62 03/24/20 03:45 36.4 C 67 18 104/52 L Pulse Ox 03/24/20 12:19 97 03/24/20 12:00 97 03/24/20 08:31 03/24/20 07:55 96 03/24/20 03:45 94 L - Problem List & Annotations (1) Multi-infarct dementia SNOMED Code(s): 40639536 Code(s): F01.50 - VASCULAR DEMENTIA WITHOUT BEHAVIORAL DISTURBANCE Status: Acute Priority: High Current Visit: Yes Qualifiers: Dementia behavioral disturbance: without behavioral disturbance Qualified Code(s): F01.50 - Vascular dementia without behavioral disturbance (2) Falls SNOMED Code(s): 0707642, 204537321 Code(s): W19.XXXA - UNSPECIFIED FALL, INITIAL ENCOUNTER Status: Acute Priority: High Current Visit: Yes Qualifiers: Encounter type: initial encounter Qualified Code(s): W19.XXXA - Unspecified fall, initial encounter (3) Generalized weakness SNOMED Code(s): 42186419 Code(s): R53.1 - WEAKNESS Status: Acute Priority: High Current Visit: Yes (4) Hospital admission due to social situation SNOMED Code(s): 295130507 Code(s): Z60.9 - PROBLEM RELATED TO SOCIAL ENVIRONMENT, UNSPECIFIED Status: Acute Priority: High Current Visit: Yes (5) S/P placement of cardiac pacemaker SNOMED Code(s): 872559854, 935969623, 248888855 Code(s): Z95.0 - PRESENCE OF CARDIAC PACEMAKER Status: Chronic Priority: Low Current Visit: No (6) Confusion and disorientation SNOMED Code(s): 07409673, 28817920 Code(s): R41.0 - DISORIENTATION, UNSPECIFIED Status: Acute Priority: High Current Visit: Yes (7) Cerebral aneurysm SNOMED Code(s): 386961187 Code(s): I67.1 - CEREBRAL ANEURYSM, NONRUPTURED Status: Chronic Priority: Low Current Visit: No - Plan Plan:: I have seen and examined the patient independent of nurse practitioner Hilaria Espinoza and I have discussed the case with her. I have reviewed and agree with the assessment and plan as outlined for this patient by her. Please see orders.
[2020-03-25] MEDS: Levothyroxine 112 MCG Tab PO SCH (06:56)
[2020-03-25] MEDS: Losartan 25 MG Tab PO SCH (08:46)
[2020-03-25] MEDS: Tamsulosin 0.4 MG Cap.ER PO SCH (08:46)
[2020-03-25] MEDS: Cholecalciferol (Vitamin D3) 5,000 UNIT Cap PO SCH (08:46)
[2020-03-25] MEDS: Aspirin 81 MG Tab.Chew PO SCH (08:46)
[2020-03-25] MEDS: Ezetimibe 10 MG Tab PO SCH (08:46)
[2020-03-25] MEDS: Fenofibrate Nanocrystallized 145 MG Tab PO SCH (08:46)
[2020-03-25] MEDS: buPROPion 150 MG Tab.SR PO SCH (08:46)
[2020-03-25] MEDS: Enoxaparin 40 MG/0.4 ML Syringe SUBCUT SCH (08:46)
[2020-03-25] MEDS: Furosemide 40 MG Tab PO SCH (08:46)
[2020-03-25] MEDS: Fluticasone Propionate Nasal Spray 16 GM Bottle NASBOTH SCH (08:47)
[2020-03-25] MEDS: Carboxymethylcellulose Sodium 1% Ophth Gel 15 ML Bottle EYEBOTH SCH (08:47)
[2020-03-25] MEDS: ISOSORBIDE MONONITRATE 20 MG PO SCH ×2 (08:51→20:45)
--- NOTE | 2020-03-25 12:08 | PCM.PN ---
<Espinoza,DeAnn M - Last Filed: 03/25/20 12:18> - General Info Date of Service: 03/25/20 Admission Dx/Problem (Free Text): Admission Diagnosis/Problem Admission Diagnosis/Problem Failure to thrive Subjective Update: Is confused today. Was talking to me about "the man upstairs". I tried to reorient him and he was fixated on this man. Functional Status: Reports: Pain Controlled, Tolerating Diet, Urinating - Review of Systems General: Reports: No Symptoms HEENT: Reports: Other (macular degeneration) Pulmonary: Reports: No Symptoms Cardiovascular: Reports: No Symptoms. Denies: Edema Gastrointestinal: Reports: No Symptoms Genitourinary: Reports: Incontinence Musculoskeletal: Reports: No Symptoms Skin: Reports: No Symptoms Neurological: Reports: Confusion Psychiatric: Reports: Confusion, Anxiety - Patient Data Vitals - Most Recent: Last Vital Signs Temp 98.0 F 03/25/20 11:50 Pulse 70 03/25/20 11:50 Resp 18 03/25/20 11:50 BP 112/60 03/25/20 11:50 Pulse Ox 96 03/25/20 11:50 Orthostatic Blood Pressure [ 80/51 Standing] Orthostatic Blood Pressure [ 97/58 Supine] Weight - Most Recent: 102.285 kg I&O - Last 24 Hours: Intake & Output 03/24/20 03/25/20 03/25/20 22:59 06:59 14:59 Intake Total 1060 400 Output Total 50 1075 Balance 1010 -675 Lab Results Last 24 Hours: Laboratory Results - last 24 hr 03/24/20 03/25/20 03/25/20 Range/Units 19:30 04:22 04:22 WBC 4.84 (4.23-9.07) K/mm3 RBC 4.94 (4.63-6.08) M/mm3 Hgb 14.0 (13.7-17.5) gm/dl Hct 42.4 (40.1-51.0) % MCV 85.8 (79.0-92.2) fl MCH 28.3 (25.7-32.2) pg MCHC 33.0 (32.2-35.5) g/dl RDW Std Deviation 45.7 H (35.1-43.9) fL Plt Count 147 L (163-337) K/mm3 MPV 9.4 (9.4-12.3) fl Neut % (Auto) 53.1 (34.0-67.9) % Lymph % (Auto) 26.7 (21.8-53.1) % Blair % (Auto) 16.7 H (5.3-12.2) % Eos % (Auto) 2.7 (0.8-7.0) Baso % (Auto) 0.2 (0.1-1.2) % Neut # (Auto) 2.57 (1.78-5.38) K/mm3 Lymph # (Auto) 1.29 L (1.32-3.57) K/mm3 Blair # (Auto) 0.81 (0.30-0.82) K/mm3 Eos # (Auto) 0.13 (0.04-0.54) K/mm3 Baso # (Auto) 0.01 (0.01-0.08) K/mm3 Manual Slide Review Normal smear Sodium 129 L (136-145) mEq/L Potassium 4.2 (3.5-5.1) mEq/L Chloride 95 L (98-107) mEq/L Carbon Dioxide 24 (21-32) mEq/L Anion Gap 14.2 (5-15) BUN 21 H (7-18) mg/dL Creatinine 1.4 H (0.7-1.3) mg/dL Est Cr Clr Drug Dosing 39.83 mL/min Estimated GFR (MDRD) 48 (>60) mL/min BUN/Creatinine Ratio 15.0 (14-18) Glucose 108 (83-115) mg/dL Calcium 8.8 (8.5-10.1) mg/dL Magnesium 2.0 (1.8-2.4) mg/dl Total Bilirubin 0.8 (0.2-1.0) mg/dL AST 27 (15-37) U/L ALT 31 (16-63) U/L Alkaline Phosphatase 55 (46-116) U/L Total Protein 6.6 (6.4-8.2) g/dl Albumin 3.4 (3.4-5.0) g/dl Globulin 3.2 gm/dL Albumin/Globulin Ratio 1.1 (1-2) SARS-CoV-2 RNA (OSMAR) Negative (NEGATIVE) Iftikhar Results Last 24 Hours: Microbiology 03/19/20 07:49 Aerobic Blood Culture - Preliminary Blood - Venous - Lab Draw NO GROWTH AFTER 6 DAYS Anaerobic Blood Culture - Preliminary NO GROWTH AFTER 6 DAYS 03/19/20 07:39 Aerobic Blood Culture - Preliminary Blood - Venous NO GROWTH AFTER 6 DAYS Anaerobic Blood Culture - Preliminary NO GROWTH AFTER 6 DAYS Med Orders - Current: Current Medications Acetaminophen (Tylenol) 650 mg PO Q4H PRN PRN Reason: Pain (Mild 1-3)/fever Last Admin: 03/23/20 04:44 Dose: 650 mg Documented by: Artificial Tears (Refresh Liquigel 1%) 0 ml EYEBOTH DAILY [facility] Last Admin: 03/25/20 08:47 Dose: 1 drop Documented by: Aspirin (Aspirin) 81 mg PO DAILY [facility] Last Admin: 03/25/20 08:46 Dose: 81 mg Documented by: Bupropion HCl (Wellbutrin Sr) 150 mg PO DAILY [facility] Last Admin: 03/25/20 08:46 Dose: 150 mg Documented by: Cholecalciferol (Vitamin D3) 5,000 unit PO DAILY [facility] Last Admin: 03/25/20 08:46 Dose: 5,000 unit Documented by: Docusate Sodium (Colace) 100 mg PO BID PRN PRN Reason: Constipation Ezetimibe (Zetia) 10 mg PO DAILY [facility] Last Admin: 03/25/20 08:46 Dose: 10 mg Documented by: Enoxaparin Sodium (Lovenox) 40 mg SUBCUT DAILY [facility] Last Admin: 03/25/20 08:46 Dose: 40 mg Documented by: Fenofibrate (Tricor) 145 mg PO DAILY [facility] Last Admin: 03/25/20 08:46 Dose: 145 mg Documented by: Fluticasone Propionate (Flonase) 0 gm NASBOTH DAILY [facility] Last Admin: 03/25/20 08:47 Dose: 1 spray Documented by: Furosemide (Lasix) 40 mg PO DAILY [facility] Last Admin: 03/25/20 08:46 Dose: 40 mg Documented by: Levothyroxine Sodium (Levothyroxine) 112 mcg PO ACBREAKFAST [facility] Last Admin: 03/25/20 06:56 Dose: 112 mcg Documented by: Losartan Potassium (Cozaar) 50 mg PO DAILY [facility] Last Admin: 03/25/20 08:46 Dose: 50 mg Documented by: Ondansetron HCl (Zofran) 4 mg IV Q6H PRN PRN Reason: Nausea/Vomiting Isosorbide Mononitrate 20 Mg Ptom 0 each PO BID [facility] Last Admin: 03/25/20 08:51 Dose: 1 each Documented by: Tamsulosin HCl (Flomax) 0.4 mg PO DAILY [facility] Last Admin: 03/25/20 08:46 Dose: 0.4 mg Documented by: Discontinued Medications Docusate Sodium (Colace) 100 mg PO BID [facility] Last Admin: 03/20/20 08:34 Dose: 100 mg Documented by: Sodium Chloride (Normal Saline) 100 mls @ 75 mls/hr IV ASDIRECTED [facility] Last Admin: 03/19/20 09:02 Dose: 75 mls/hr Documented by: Iopamidol (Isovue-370 (76%)) 50 ml IVPUSH ONETIME ONE Stop: 03/19/20 08:56 Last Admin: 03/19/20 09:02 Dose: 50 ml Documented by: Iopamidol (Isovue-370 (76%)) 100 ml IVPUSH ONETIME ONE Stop: 03/19/20 08:56 Last Admin: 03/19/20 09:02 Dose: 100 ml Documented by: Isosorbide Dinitrate (Isordil) 20 mg PO ONETIME ONE Stop: 03/19/20 20:58 Last Admin: 03/19/20 21:26 Dose: 20 mg Documented by: Isosorbide Mononitrate 20 Mg Ptom 0 each PO BID [facility] Last Admin: 03/22/20 09:59 Dose: Not Given Documented by: Senna (Senna) 17.2 mg PO BID [facility] Last Admin: 03/21/20 01:21 Dose: Not Given Documented by: Sodium Chloride (Saline Flush) 10 ml FLUSH ONETIME PRN PRN Reason: IV FLUSH Last Admin: 03/19/20 09:02 Dose: 10 ml Documented by: - Exam Quality Assessment: DVT Prophylaxis. No: Supplemental Oxygen General: Alert, Cooperative, No Acute Distress HEENT: Pupils Equal, Mucous Membr. Moist/[place] Neck: Supple, Trachea Midline. No: Lymphadenopathy Lungs: Clear to Auscultation, Normal Respiratory Effort Cardiovascular: Regular Rate, Regular Rhythm GI/Abdominal Exam: Normal Bowel Sounds, Soft, Non-Tender, No Distention (Male) Exam: Deferred Back Exam: Normal Inspection, Full Range of Motion Extremities: Normal Inspection, Normal Range of Motion, Non-Tender, No Pedal Edema, Normal Capillary Refill Peripheral Pulses: 2+: Radial (L), Radial (R), Dorsalis Pedis (L), Dorsalis Pedis (R) Skin: Warm, Dry, Intact Neurological: No New Focal Deficit Psy/Mental Status: Alert, Anxious Sepsis Event Note - Evaluation Sepsis Screening Result: No Definite Risk - Focused Exam Vital Signs: Vital Signs Temp Temp Pulse Pulse Resp BP BP 03/25/20 11:50 98.0 F 70 18 112/60 03/25/20 08:46 160/97 H 03/25/20 08:00 97.9 F 68 14 160/97 H 03/25/20 04:42 97.9 F 64 18 129/91 H 03/25/20 00:19 97.9 F 62 16 123/59 L Pulse Ox 03/25/20 11:50 96 03/25/20 08:46 03/25/20 08:00 96 03/25/20 04:42 94 L 03/25/20 00:19 92 L - Problem List & Annotations (1) Confusion and disorientation SNOMED Code(s): 16122585, 53890229 Code(s): R41.0 - DISORIENTATION, UNSPECIFIED Status: Acute Priority: High Current Visit: Yes (2) Falls SNOMED Code(s): 1142824, 684631391 Code(s): W19.XXXA - UNSPECIFIED FALL, INITIAL ENCOUNTER Status: Acute Priority: High Current Visit: Yes Qualifiers: Encounter type: initial encounter Qualified Code(s): W19.XXXA - Unspecified fall, initial encounter (3) Generalized weakness SNOMED Code(s): 75496332 Code(s): R53.1 - WEAKNESS Status: Acute Priority: High Current Visit: Yes (4) Hospital admission due to social situation SNOMED Code(s): 060003342 Code(s): Z60.9 - PROBLEM RELATED TO SOCIAL ENVIRONMENT, UNSPECIFIED Status: Acute Priority: High Current Visit: Yes (5) Multi-infarct dementia SNOMED Code(s): 13096517 Code(s): F01.50 - VASCULAR DEMENTIA WITHOUT BEHAVIORAL DISTURBANCE Status: Acute Priority: High Current Visit: Yes Qualifiers: Dementia behavioral disturbance: without behavioral disturbance Qualified Code(s): F01.50 - Vascular dementia without behavioral disturbance (6) Cerebral aneurysm SNOMED Code(s): 875768545 Code(s): I67.1 - CEREBRAL ANEURYSM, NONRUPTURED Status: Chronic Priority: Low Current Visit: No (7) S/P placement of cardiac pacemaker SNOMED Code(s): 442307230, 627378350, 185989067 Code(s): Z95.0 - PRESENCE OF CARDIAC PACEMAKER Status: Chronic Priority: Low Current Visit: No - Problem List Review Problem List Initiated/Reviewed/Updated: Yes - My Orders Last 24 Hours: My Active Orders 03/24/20 12:00 Furosemide [Lasix] 40 mg PO DAILY - Assessment Assessment:: Assessment on day of admission: 03/19/2020 * 84 yo male who reports to ED via ambulance with multiple falls and generalized weakness * Per , patient had been ambulating without difficulty until about a week ago * Per , patient is legally blind * Workup in ED basically unremarkable, however patient 2+ assist and unable to go home * Patient lives with in [place]. * Denies any injury or pain with falls * Denies any infectious symptoms * 12-lead EKG shows A-V paced rhythm * reports pacemaker was placed recently - well healing wound noted on left chest * CXR and CTA both show nothing acute. * Head CT negative for anything acute. There is some evidence of remote ischemic changes. * Labs in ED: * WBC 6.156 * Hgb 15.0 * Plt count 170 * Neutrophils 63% * D-Dimer 2.10 * Sodium 136 * Potassium 4.1 * Anion Gap 15.1 * BUN 18 * Creatinine 1.3 * GFR 52 * Magnesium 2.0 * Troponin 0.055 * Albumin 3.5 * TSH 1.778 * UA negative * SARS-CoV-2 screen negative * Vital signs stable 03/20/2020 * Remains weak but otherwise no complaints * Very large BM today per nursing * Labs show creatinine of 1.4 and GFR of 48 (slightly worse) * Electrolytes WNL * Vitamin B12, Folic acid, CRP all WNL * Vitamin D slightly low at 27.9 - supplementation started * A1C 6.0% * RPR negative * Working with PT/OT * No nursing or patient concerns. * Vital signs stable * Remains off of oxygen 03/21/2020 The patient has a pacemaker in place and therefore is not able to undergo an MRI. We will consider CTA of the head in place. Patient still remains confused and one-to-one sitter will be continued. We will continue to monitor the patient's vital signs and if he becomes hypoxic we will institute oxygen therapy. Laboratory studies have been ordered. We will continue to monitor and replace electrolytes as necessary. Currently awaiting placement. We will continue with PT OT. Will be monitored for falls. 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 The patient has been noticed to have a previous aneurysm. 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 The infarcts are in the frontal lobe and likely contributing to the patient's overall confusion. Patient will be maintained on fall risk. The patient will likely need to have long-term placement. Repeat laboratory studies have been ordered. Patient will be maintained on oxygen if necessary to keep his saturations above 90%. He will be continued on his appropriate ADA diet. 03/23/2020 The patient remains confused. The aneurysm that had been noted previously on the CT angiogram is chronic in nature and inoperable. This is likely the source of the patient's multiinfarct noted in his frontal lobe. This likely represents that the patient has worsening multi-infarct dementia. 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 The patient would be appropriate for consideration with placement likely in a skilled facility. Today he is currently in a full CODE STATUS and this will be honored. The patient should also ambulate with assistance. PT OT has also been ordered for the patient. He will be kept on the appropriate ADA diet. Patient will also be maintained on oxygen to keep his saturations above 90%. 03/24/20 Remains confused. Is having anxiety regarding prison placement. He is worried that he has not been to be able to return home. Needs continued encouragement that if he gets stronger he may be able to return home as his home is handicap accessible. Also having anxiety regarding dementia diagnosis. Vital signs remained stable and he is 94 to 98% on room air. CBC was unremarkable however his sodium went from 132 down to 130. The patient's weight is up from admit. In the last 24 hours he is +1290 on fluid intake. Upon fur ther investigation, it was discovered that patient was supposed to be taking Lasix 40 mg daily. This was not on his home medication list. We called Dr. Larose's office and she verified that this indeed was the dosage of Lasix he is supposed to be taking daily. This will be restarted today. Hopefully with this addition his sodium level will begin to go back up. PT and OT will be working with the patient as well. 03/25/20 He is still confused today. When I rounded on him he was very fixated on the man upstairs. He was worried that the man was going to come to his room and he was going to have to answer to him. He was not oriented to place and when I did reorient him and tell him that there is no upstairs he was not excepting of this. Was also very anxious today regarding his bowels, telling me he has not had a bowel movement. Checked with nursing staff he has indeed had a bowel movement today. Vital signs remained stable and he is 92 to 97% on room air. Sodium is 129 that is down from 130, BUN is 21 and that is up from 19, creatinine 1.4 that is up from 1.2, GFR is 48 today and that is down from 58. Home Lasix dose was restarted yesterday. Patient's blood pressures seem to be tolerating that nicely. He still is consuming a large amount of water. And hopefully this will even out with the start of the Lasix as well as increase the sodium level. Will consider a fluid restriction if the sodium level does not start to climb back up. Patient is otherwise stable for discharge to the prison. - Plan Plan:: I have seen and examined the patient independent of nurse practitioner Hilaria Espinoza and I have discussed the case with her. I have reviewed and agree with the assessment and plan as outlined for this patient by her. Please see orders. Hospital admission due to social situation Generalized weakness Falls Legally blind * PT evaluation * CM/SW to work on placement * Ambulate with nursing S/P placement of cardiac pacemaker * No current concerns Cerebral aneurysm * No current concerns CAD (coronary artery disease) Heart failure History of NE (myocardial infarction) S/P CABG x 2 * Continue home ASA HLD (hyperlipidemia) * Continue fenofibrate and Zetia HTN (hypertension) * Continue home Cozaar COPD (chronic obstructive pulmonary disease) * Non-treated * Stable with no concerns BPH (benign prostatic hyperplasia) * Continue flomax Depression * Continue home wellbutrin Hypothyroid * Continue home levothyroxine History of prediabetes, A1C 6.00% * ADA diet * Monitor daily blood sugars PCP: Dr. Larose DVT Prophylaxis: Lovenox GI Prophylaxis: Not indicated Social: Patient lives with in [place] Disposition: Patient admitted inpatient for generalized weakness and frequent falls, PT evaluation and likely placement. Prognosis: Good LOS >96 Hrs pending placement 03/21/2020 The patient has a pacemaker in place and therefore is not able to undergo an MRI. We will consider CTA of the head in place. Patient still remains confused and one-to-one sitter will be continued. We will continue to monitor the patient's vital signs and if he becomes hypoxic we will institute oxygen therapy. Laboratory studies have been ordered. We will continue to monitor and replace electrolytes as necessary. Currently awaiting placement. We will continue with PT OT. Will be monitored for falls. 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 The patient has been noticed to have a previous aneurysm. 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 The infarcts are in the frontal lobe and likely contributing to the patient's overall confusion. Patient will be maintained on fall risk. The patient will likely need to have long-term placement. Repeat laboratory studies have been ordered. Patient will be maintained on oxygen if necessary to keep his saturations above 90%. He will be continued on his appropriate ADA diet. 03/23/2020 The patient remains confused. The aneurysm that had been noted previously on the CT angiogram is chronic in nature and inoperable. This is likely the source of the patient's multiinfarct noted in his frontal lobe. This likely represents that the patient has worsening multi-infarct dementia. 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 The patient would be appropriate for consideration with placement likely in a skilled facility. Today he is currently in a full CODE STATUS and this will be honored. The patient should also ambulate with assistance. PT OT has also been ordered for the patient. He will be kept on the appropriate ADA diet. Patient will also be maintained on oxygen to keep his saturations above 90%. 03/24/20 Therapies to continue working with the patient. Case management and social work to continue with placement options at a [place] [facility] as of this time patient is not able to be safely returning to home. Restart Lasix 40 mg daily as he was taking this intermittently prior to being admitted to the hospital. Lovenox for DVT prophylaxis. Continue strict ADIA and daily weights. <Derick Tamayo - Last Filed: 03/24/20 14:55> 03/25/20 Patient is awaiting placement to [facility]. Was supposed to be discharged today, however there are issues with insurances. supervisor ship maintenance services to continue working to get patient transferred to the prison. Patient is stable and ready for discharge at this time. Will recheck labs in the morning and continue to monitor vital signs. Lovenox for DVT prophylaxis. Continue to monitor intake and output and daily weight. <Derick Tamayo - Last Filed: 03/25/20 15:28> - Patient Data Vitals - Most Recent: Last Vital Signs Temp 36.7 C 03/25/20 11:50 Pulse 70 03/25/20 11:50 Resp 18 03/25/20 11:50 BP 112/60 03/25/20 11:50 Pulse Ox 96 03/25/20 11:50 Orthostatic Blood Pressure [ 80/51 Standing] Orthostatic Blood Pressure [ 97/58 Supine] I&O - Last 24 Hours: Intake & Output 03/25/20 03/25/20 03/25/20 06:59 14:59 22:59 Intake Total 400 Output Total 1075 Balance -675 Lab Results Last 24 Hours: Laboratory Results - last 24 hr 03/24/20 03/25/20 03/25/20 Range/Units 19:30 04:22 04:22 WBC 4.84 (4.23-9.07) K/mm3 RBC 4.94 (4.63-6.08) M/mm3 Hgb 14.0 (13.7-17.5) gm/dl Hct 42.4 (40.1-51.0) % MCV 85.8 (79.0-92.2) fl MCH 28.3 (25.7-32.2) pg MCHC 33.0 (32.2-35.5) g/dl RDW Std Deviation 45.7 H (35.1-43.9) fL Plt Count 147 L (163-337) K/mm3 MPV 9.4 (9.4-12.3) fl Neut % (Auto) 53.1 (34.0-67.9) % Lymph % (Auto) 26.7 (21.8-53.1) % Blair % (Auto) 16.7 H (5.3-12.2) % Eos % (Auto) 2.7 (0.8-7.0) Baso % (Auto) 0.2 (0.1-1.2) % Neut # (Auto) 2.57 (1.78-5.38) K/mm3 Lymph # (Auto) 1.29 L (1.32-3.57) K/mm3 Blair # (Auto) 0.81 (0.30-0.82) K/mm3 Eos # (Auto) 0.13 (0.04-0.54) K/mm3 Baso # (Auto) 0.01 (0.01-0.08) K/mm3 Manual Slide Review Normal smear Sodium 129 L (136-145) mEq/L Potassium 4.2 (3.5-5.1) mEq/L Chloride 95 L (98-107) mEq/L Carbon Dioxide 24 (21-32) mEq/L Anion Gap 14.2 (5-15) BUN 21 H (7-18) mg/dL Creatinine 1.4 H (0.7-1.3) mg/dL Est Cr Clr Drug Dosing 39.83 mL/min Estimated GFR (MDRD) 48 (>60) mL/min BUN/Creatinine Ratio 15.0 (14-18) Glucose 108 (83-115) mg/dL Calcium 8.8 (8.5-10.1) mg/dL Magnesium 2.0 (1.8-2.4) mg/dl Total Bilirubin 0.8 (0.2-1.0) mg/dL AST 27 (15-37) U/L ALT 31 (16-63) U/L Alkaline Phosphatase 55 (46-116) U/L Total Protein 6.6 (6.4-8.2) g/dl Albumin 3.4 (3.4-5.0) g/dl Globulin 3.2 gm/dL Albumin/Globulin Ratio 1.1 (1-2) SARS-CoV-2 RNA (OSMAR) Negative (NEGATIVE) Iftikhar Results Last 24 Hours: Microbiology 03/19/20 07:49 Aerobic Blood Culture - Preliminary Blood - Venous - Lab Draw NO GROWTH AFTER 6 DAYS Anaerobic Blood Culture - Preliminary NO GROWTH AFTER 6 DAYS 03/19/20 07:39 Aerobic Blood Culture - Preliminary Blood - Venous NO GROWTH AFTER 6 DAYS Anaerobic Blood Culture - Preliminary NO GROWTH AFTER 6 DAYS Med Orders - Current: Current Medications Acetaminophen (Tylenol) 650 mg PO Q4H PRN PRN Reason: Pain (Mild 1-3)/fever Last Admin: 03/23/20 04:44 Dose: 650 mg Documented by: Artificial Tears (Refresh Liquigel 1%) 0 ml EYEBOTH DAILY [facility] Last Admin: 03/25/20 08:47 Dose: 1 drop Documented by: Aspirin (Aspirin) 81 mg PO DAILY [facility] Last Admin: 03/25/20 08:46 Dose: 81 mg Documented by: Bupropion HCl (Wellbutrin Sr) 150 mg PO DAILY [facility] Last Admin: 03/25/20 08:46 Dose: 150 mg Documented by: Cholecalciferol (Vitamin D3) 5,000 unit PO DAILY [facility] Last Admin: 03/25/20 08:46 Dose: 5,000 unit Documented by: Docusate Sodium (Colace) 100 mg PO BID PRN PRN Reason: Constipation Ezetimibe (Zetia) 10 mg PO DAILY [facility] Last Admin: 03/25/20 08:46 Dose: 10 mg Documented by: Enoxaparin Sodium (Lovenox) 40 mg SUBCUT DAILY [facility] Last Admin: 03/25/20 08:46 Dose: 40 mg Documented by: Fenofibrate (Tricor) 145 mg PO DAILY [facility] Last Admin: 03/25/20 08:46 Dose: 145 mg Documented by: Fluticasone Propionate (Flonase) 0 gm NASBOTH DAILY [facility] Last Admin: 03/25/20 08:47 Dose: 1 spray Documented by: Furosemide (Lasix) 40 mg PO DAILY [facility] Last Admin: 03/25/20 08:46 Dose: 40 mg Documented by: Levothyroxine Sodium (Levothyroxine) 112 mcg PO ACBREAKFAST [facility] Last Admin: 03/25/20 06:56 Dose: 112 mcg Documented by: Losartan Potassium (Cozaar) 50 mg PO DAILY [facility] Last Admin: 03/25/20 08:46 Dose: 50 mg Documented by: Ondansetron HCl (Zofran) 4 mg IV Q6H PRN PRN Reason: Nausea/Vomiting Isosorbide Mononitrate 20 Mg Ptom 0 each PO BID [facility] Last Admin: 03/25/20 08:51 Dose: 1 each Documented by: Tamsulosin HCl (Flomax) 0.4 mg PO DAILY [facility] Last Admin: 03/25/20 08:46 Dose: 0.4 mg Documented by: Discontinued Medications Docusate Sodium (Colace) 100 mg PO BID [facility] Last Admin: 03/20/20 08:34 Dose: 100 mg Documented by: Sodium Chloride (Normal Saline) 100 mls @ 75 mls/hr IV ASDIRECTED [facility] Last Admin: 03/19/20 09:02 Dose: 75 mls/hr Documented by: Iopamidol (Isovue-370 (76%)) 50 ml IVPUSH ONETIME ONE Stop: 03/19/20 08:56 Last Admin: 03/19/20 09:02 Dose: 50 ml Documented by: Iopamidol (Isovue-370 (76%)) 100 ml IVPUSH ONETIME ONE Stop: 03/19/20 08:56 Last Admin: 03/19/20 09:02 Dose: 100 ml Documented by: Isosorbide Dinitrate (Isordil) 20 mg PO ONETIME ONE Stop: 03/19/20 20:58 Last Admin: 03/19/20 21:26 Dose: 20 mg Documented by: Isosorbide Mononitrate 20 Mg Ptom 0 each PO BID [facility] Last Admin: 03/22/20 09:59 Dose: Not Given Documented by: Senna (Senna) 17.2 mg PO BID [facility] Last Admin: 03/21/20 01:21 Dose: Not Given Documented by: Sodium Chloride (Saline Flush) 10 ml FLUSH ONETIME PRN PRN Reason: IV FLUSH Last Admin: 03/19/20 09:02 Dose: 10 ml Documented by: Sepsis Event Note - Focused Exam Vital Signs: Vital Signs Temp Temp Pulse Pulse Resp BP BP 03/25/20 11:50 36.7 C 70 18 112/60 03/25/20 08:46 160/97 H 03/25/20 08:00 36.6 C 68 14 160/97 H 03/25/20 04:42 36.6 C 64 18 129/91 H Pulse Ox 03/25/20 11:50 96 03/25/20 08:46 03/25/20 08:00 96 03/25/20 04:42 94 L - Problem List & Annotations (1) Multi-infarct dementia SNOMED Code(s): 86533186 Code(s): F01.50 - VASCULAR DEMENTIA WITHOUT BEHAVIORAL DISTURBANCE Status: Acute Priority: High Current Visit: Yes Qualifiers: Dementia behavioral disturbance: without behavioral disturbance Qualified Code(s): F01.50 - Vascular dementia without behavioral disturbance (2) Falls SNOMED Code(s): 6683517, 131494816 Code(s): W19.XXXA - UNSPECIFIED FALL, INITIAL ENCOUNTER Status: Acute Priority: High Current Visit: Yes Qualifiers: Encounter type: initial encounter Qualified Code(s): W19.XXXA - Unspecified fall, initial encounter (3) Generalized weakness SNOMED Code(s): 84887477 Code(s): R53.1 - WEAKNESS Status: Acute Priority: High Current Visit: Yes (4) Hospital admission due to social situation SNOMED Code(s): 993487630 Code(s): Z60.9 - PROBLEM RELATED TO SOCIAL ENVIRONMENT, UNSPECIFIED Status: Acute Priority: High Current Visit: Yes (5) S/P placement of cardiac pacemaker SNOMED Code(s): 706811088, 774278929, 842729064 Code(s): Z95.0 - PRESENCE OF CARDIAC PACEMAKER Status: Chronic Priority: Low Current Visit: No (6) Confusion and disorientation SNOMED Code(s): 86372393, 61650054 Code(s): R41.0 - DISORIENTATION, UNSPECIFIED Status: Acute Priority: High Current Visit: Yes (7) Cerebral aneurysm SNOMED Code(s): 002417482 Code(s): I67.1 - CEREBRAL ANEURYSM, NONRUPTURED Status: Chronic Priority: Low Current Visit: No - Plan Plan:: I have seen and examined the patient independent of nurse practitioner Hilaria Espinoza and I have discussed the case with her. I have reviewed and agree with the assessment and plan as outlined for this patient by her. Discharge delayed due to insurance issues. Please see orders.
[2020-03-25] MEDS: Acetaminophen 325 MG Tab PO PRN (20:40)
[2020-03-25] MEDS: Docusate Sodium 100 MG Cap PO PRN (20:41)
[2020-03-26] MEDS: Levothyroxine 112 MCG Tab PO SCH (07:42)
[2020-03-26] MEDS: Furosemide 40 MG Tab PO SCH (08:07)
[2020-03-26] MEDS: Losartan 25 MG Tab PO SCH (08:08)
[2020-03-26] MEDS: buPROPion 150 MG Tab.SR PO SCH (08:08)
[2020-03-26] MEDS: Cholecalciferol (Vitamin D3) 5,000 UNIT Cap PO SCH (08:09)
[2020-03-26] MEDS: Fenofibrate Nanocrystallized 145 MG Tab PO SCH (08:09)
[2020-03-26] MEDS: Ezetimibe 10 MG Tab PO SCH (08:09)
[2020-03-26] MEDS: Tamsulosin 0.4 MG Cap.ER PO SCH (08:09)
[2020-03-26] MEDS: Enoxaparin 40 MG/0.4 ML Syringe SUBCUT SCH (08:10)
[2020-03-26] MEDS: Aspirin 81 MG Tab.Chew PO SCH (08:10)
[2020-03-26] MEDS: Fluticasone Propionate Nasal Spray 16 GM Bottle NASBOTH SCH (08:11)
[2020-03-26] MEDS: Carboxymethylcellulose Sodium 1% Ophth Gel 15 ML Bottle EYEBOTH SCH (08:12)
[2020-03-26] MEDS: ISOSORBIDE MONONITRATE 20 MG PO SCH ×2 (08:16→20:23)
--- NOTE | 2020-03-26 14:05 | PCM.PN ---
- General Info Date of Service: 03/26/20 Admission Dx/Problem (Free Text): Admission Diagnosis/Problem Admission Diagnosis/Problem Failure to thrive Subjective Update: Doing about the same. Still very anxious about going to the detention. Functional Status: Reports: Pain Controlled, Tolerating Diet, Ambulating, Urinating - Review of Systems General: Reports: No Symptoms HEENT: Reports: Other (Macular degeneration) Pulmonary: Reports: No Symptoms Cardiovascular: Reports: No Symptoms Gastrointestinal: Reports: No Symptoms Genitourinary: Reports: No Symptoms Musculoskeletal: Reports: No Symptoms Skin: Reports: No Symptoms Neurological: Reports: Confusion Psychiatric: Reports: Confusion, Anxiety - Patient Data Vitals - Most Recent: Last Vital Signs Temp 98.1 F 03/26/20 11:26 Pulse 66 03/26/20 11:26 Resp 15 03/26/20 11:26 BP 113/99 H 03/26/20 11:26 Pulse Ox 93 L 03/26/20 11:26 Orthostatic Blood Pressure [ 80/51 Standing] Orthostatic Blood Pressure [ 97/58 Supine] Weight - Most Recent: 222 lb 11.2 oz I&O - Last 24 Hours: Intake & Output 03/25/20 03/26/20 03/26/20 22:59 06:59 14:59 Intake Total 1000 400 240 Output Total 600 750 200 Balance 400 -350 40 Lab Results Last 24 Hours: Laboratory Results - last 24 hr 03/26/20 03/26/20 03/26/20 Range/Units 08:13 08:13 08:13 WBC 4.78 (4.23-9.07) K/mm3 RBC 4.88 (4.63-6.08) M/mm3 Hgb 14.1 (13.7-17.5) gm/dl Hct 42.0 (40.1-51.0) % MCV 86.1 (79.0-92.2) fl MCH 28.9 (25.7-32.2) pg MCHC 33.6 (32.2-35.5) g/dl RDW Std Deviation 45.9 H (35.1-43.9) fL Plt Count 162 L (163-337) K/mm3 MPV 8.8 L (9.4-12.3) fl Neut % (Auto) 51.5 (34.0-67.9) % Lymph % (Auto) 27.2 (21.8-53.1) % [place] % (Auto) 16.9 H (5.3-12.2) % Eos % (Auto) 3.6 (0.8-7.0) Baso % (Auto) 0.4 (0.1-1.2) % Neut # (Auto) 2.46 (1.78-5.38) K/mm3 Lymph # (Auto) 1.30 L (1.32-3.57) K/mm3 [place] # (Auto) 0.81 (0.30-0.82) K/mm3 Eos # (Auto) 0.17 (0.04-0.54) K/mm3 Baso # (Auto) 0.02 (0.01-0.08) K/mm3 Manual Slide Review Normal smear Sodium 127 L (136-145) mEq/L Potassium 4.2 (3.5-5.1) mEq/L Chloride 94 L (98-107) mEq/L Carbon Dioxide 23 (21-32) mEq/L Anion Gap 14.2 (5-15) BUN 26 H (7-18) mg/dL Creatinine 1.5 H (0.7-1.3) mg/dL Est Cr Clr Drug Dosing 37.18 mL/min Estimated GFR (MDRD) 44 (>60) mL/min BUN/Creatinine Ratio 17.3 (14-18) Glucose 114 (83-115) mg/dL Serum Osmolality 278 L (280-300) mosm/kg Calcium 8.7 (8.5-10.1) mg/dL Magnesium 2.0 (1.8-2.4) mg/dl Total Bilirubin 0.8 (0.2-1.0) mg/dL AST 34 (15-37) U/L ALT 35 (16-63) U/L Alkaline Phosphatase 56 (46-116) U/L NT-Pro-B Natriuret Pep (0-450) pg/mL Total Protein 6.8 (6.4-8.2) g/dl Albumin 3.5 (3.4-5.0) g/dl Globulin 3.3 gm/dL Albumin/Globulin Ratio 1.1 (1-2) Urine Osmolality (400-1100) mosm/kg Ur Random Sodium (40-220) mEq/L 10/03/26/20 03/26/20 Range/Units 08:13 12:20 12:20 WBC (4.23-9.07) K/mm3 RBC (4.63-6.08) M/mm3 Hgb (13.7-17.5) gm/dl Hct (40.1-51.0) % MCV (79.0-92.2) fl MCH (25.7-32.2) pg MCHC (32.2-35.5) g/dl RDW Std Deviation (35.1-43.9) fL Plt Count (163-337) K/mm3 MPV (9.4-12.3) fl Neut % (Auto) (34.0-67.9) % Lymph % (Auto) (21.8-53.1) % [place] % (Auto) (5.3-12.2) % Eos % (Auto) (0.8-7.0) Baso % (Auto) (0.1-1.2) % Neut # (Auto) (1.78-5.38) K/mm3 Lymph # (Auto) (1.32-3.57) K/mm3 [place] # (Auto) (0.30-0.82) K/mm3 Eos # (Auto) (0.04-0.54) K/mm3 Baso # (Auto) (0.01-0.08) K/mm3 Manual Slide Review Sodium (136-145) mEq/L Potassium (3.5-5.1) mEq/L Chloride (98-107) mEq/L Carbon Dioxide (21-32) mEq/L Anion Gap (5-15) BUN (7-18) mg/dL Creatinine (0.7-1.3) mg/dL Est Cr Clr Drug Dosing mL/min Estimated GFR (MDRD) (>60) mL/min BUN/Creatinine Ratio (14-18) Glucose (83-115) mg/dL Serum Osmolality (280-300) mosm/kg Calcium (8.5-10.1) mg/dL Magnesium (1.8-2.4) mg/dl Total Bilirubin (0.2-1.0) mg/dL AST (15-37) U/L ALT (16-63) U/L Alkaline Phosphatase (46-116) U/L NT-Pro-B Natriuret Pep 356 (0-450) pg/mL Total Protein (6.4-8.2) g/dl Albumin (3.4-5.0) g/dl Globulin gm/dL Albumin/Globulin Ratio (1-2) Urine Osmolality 223 L (400-1100) mosm/kg Ur Random Sodium 29 L (40-220) mEq/L Iftikhar Results Last 24 Hours: Microbiology 03/19/20 07:49 Aerobic Blood Culture - Final Blood - Venous - Lab Draw NO GROWTH AFTER 7 DAYS Anaerobic Blood Culture - Final NO GROWTH AFTER 7 DAYS 03/19/20 07:39 Aerobic Blood Culture - Final Blood - Venous NO GROWTH AFTER 7 DAYS Anaerobic Blood Culture - Final NO GROWTH AFTER 7 DAYS Med Orders - Current: Current Medications Acetaminophen (Tylenol) 650 mg PO Q4H PRN PRN Reason: Pain (Mild 1-3)/fever Last Admin: 03/25/20 20:40 Dose: 650 mg Documented by: Artificial Tears (Refresh Liquigel 1%) 0 ml EYEBOTH DAILY [facility] Last Admin: 03/26/20 08:12 Dose: 1 drop Documented by: Aspirin (Aspirin) 81 mg PO DAILY [facility] Last Admin: 03/26/20 08:10 Dose: 81 mg Documented by: Bupropion HCl (Wellbutrin Sr) 150 mg PO DAILY [facility] Last Admin: 03/26/20 08:08 Dose: 150 mg Documented by: Cholecalciferol (Vitamin D3) 5,000 unit PO DAILY [facility] Last Admin: 03/26/20 08:09 Dose: 5,000 unit Documented by: Docusate Sodium (Colace) 100 mg PO BID PRN PRN Reason: Constipation Last Admin: 03/25/20 20:41 Dose: 100 mg Documented by: Ezetimibe (Zetia) 10 mg PO DAILY [facility] Last Admin: 03/26/20 08:09 Dose: 10 mg Documented by: Enoxaparin Sodium (Lovenox) 40 mg SUBCUT DAILY [facility] Last Admin: 03/26/20 08:10 Dose: 40 mg Documented by: Fenofibrate (Tricor) 145 mg PO DAILY [facility] Last Admin: 03/26/20 08:09 Dose: 145 mg Documented by: Fluticasone Propionate (Flonase) 0 gm NASBOTH DAILY [facility] Last Admin: 03/26/20 08:11 Dose: 1 spray Documented by: Furosemide (Lasix) 40 mg PO DAILY [facility] Last Admin: 03/26/20 08:07 Dose: 40 mg Documented by: Levothyroxine Sodium (Levothyroxine) 112 mcg PO ACBREAKFAST [facility] Last Admin: 03/26/20 07:42 Dose: 112 mcg Documented by: Losartan Potassium (Cozaar) 50 mg PO DAILY [facility] Last Admin: 03/26/20 08:08 Dose: 50 mg Documented by: Ondansetron HCl (Zofran) 4 mg IV Q6H PRN PRN Reason: Nausea/Vomiting Isosorbide Mononitrate 20 Mg Ptom 0 each PO BID [facility] Last Admin: 03/26/20 08:16 Dose: 1 each Documented by: Tamsulosin HCl (Flomax) 0.4 mg PO DAILY [facility] Last Admin: 03/26/20 08:09 Dose: 0.4 mg Documented by: Discontinued Medications Docusate Sodium (Colace) 100 mg PO BID [facility] Last Admin: 03/20/20 08:34 Dose: 100 mg Documented by: Sodium Chloride (Normal Saline) 100 mls @ 75 mls/hr IV ASDIRECTED [facility] Last Admin: 03/19/20 09:02 Dose: 75 mls/hr Documented by: Iopamidol (Isovue-370 (76%)) 50 ml IVPUSH ONETIME ONE Stop: 03/19/20 08:56 Last Admin: 03/19/20 09:02 Dose: 50 ml Documented by: Iopamidol (Isovue-370 (76%)) 100 ml IVPUSH ONETIME ONE Stop: 03/19/20 08:56 Last Admin: 03/19/20 09:02 Dose: 100 ml Documented by: Isosorbide Dinitrate (Isordil) 20 mg PO ONETIME ONE Stop: 03/19/20 20:58 Last Admin: 03/19/20 21:26 Dose: 20 mg Documented by: Isosorbide Mononitrate 20 Mg Ptom 0 each PO BID [facility] Last Admin: 03/22/20 09:59 Dose: Not Given Documented by: Senna (Senna) 17.2 mg PO BID [facility] Last Admin: 03/21/20 01:21 Dose: Not Given Documented by: Sodium Chloride (Saline Flush) 10 ml FLUSH ONETIME PRN PRN Reason: IV FLUSH Last Admin: 03/19/20 09:02 Dose: 10 ml Documented by: - Exam Quality Assessment: DVT Prophylaxis (Lovenox). No: Supplemental Oxygen General: Alert, Cooperative, No Acute Distress. No: Oriented (Oriented to person only) HEENT: Pupils Equal, Pupils Reactive, Mucous Membr. Moist/[place] Neck: Supple, Trachea Midline. No: Lymphadenopathy Lungs: Clear to Auscultation, Normal Respiratory Effort Cardiovascular: Regular Rate, Regular Rhythm GI/Abdominal Exam: Normal Bowel Sounds, Soft, Non-Tender, No Distention (Male) Exam: Deferred Back Exam: Normal Inspection, Full Range of Motion Extremities: Normal Inspection, Normal Range of Motion, Non-Tender, No Pedal Edema, Normal Capillary Refill Peripheral Pulses: 2+: Radial (L), Radial (R), Dorsalis Pedis (L), Dorsalis Pedis (R) Skin: Warm, Dry, Intact Neurological: No New Focal Deficit Psy/Mental Status: Alert, Normal Affect, Anxious Sepsis Event Note - Evaluation Sepsis Screening Result: No Definite Risk - Focused Exam Vital Signs: Vital Signs Temp Pulse Resp BP Pulse Ox 03/26/20 11:26 98.1 F 66 15 113/99 H 93 L 03/26/20 10:00 95 03/26/20 08:15 97.5 F 16 03/26/20 08:08 116/63 03/26/20 08:06 62 116/63 92 L 03/26/20 03:20 97.5 F 70 20 108/53 L 93 L - Problem List & Annotations (1) Confusion and disorientation SNOMED Code(s): 58514643, 74205518 Code(s): R41.0 - DISORIENTATION, UNSPECIFIED Status: Acute Priority: High Current Visit: Yes (2) Falls SNOMED Code(s): 4105828, 781588301 Code(s): W19.XXXA - UNSPECIFIED FALL, INITIAL ENCOUNTER Status: Acute Priority: High Current Visit: Yes Qualifiers: Encounter type: initial encounter Qualified Code(s): W19.XXXA - Unspecified fall, initial encounter (3) Generalized weakness SNOMED Code(s): 77497500 Code(s): R53.1 - WEAKNESS Status: Acute Priority: High Current Visit: Yes (4) Hospital admission due to social situation SNOMED Code(s): 424876243 Code(s): Z60.9 - PROBLEM RELATED TO SOCIAL ENVIRONMENT, UNSPECIFIED Status: Acute Priority: High Current Visit: Yes (5) Multi-infarct dementia SNOMED Code(s): 91816868 Code(s): F01.50 - VASCULAR DEMENTIA WITHOUT BEHAVIORAL DISTURBANCE Status: Acute Priority: High Current Visit: Yes Qualifiers: Dementia behavioral disturbance: without behavioral disturbance Qualified Code(s): F01.50 - Vascular dementia without behavioral disturbance (6) Cerebral aneurysm SNOMED Code(s): 228043888 Code(s): I67.1 - CEREBRAL ANEURYSM, NONRUPTURED Status: Chronic Priority: Low Current Visit: No (7) S/P placement of cardiac pacemaker SNOMED Code(s): 734073374, 487563696, 243769862 Code(s): Z95.0 - PRESENCE OF CARDIAC PACEMAKER Status: Chronic Priority: Low Current Visit: No - Problem List Review Problem List Initiated/Reviewed/Updated: Yes - Assessment Assessment:: Assessment on day of admission: 03/19/2020 * 84 yo male who reports to ED via ambulance with multiple falls and generalized weakness * Per , patient had been ambulating without difficulty until about a week ago * Per , patient is legally blind * Workup in ED basically unremarkable, however patient 2+ assist and unable to go home * Patient lives with in [place]. * Denies any injury or pain with falls * Denies any infectious symptoms * 12-lead EKG shows A-V paced rhythm * reports pacemaker was placed recently - well healing wound noted on left chest * CXR and CTA both show nothing acute. * Head CT negative for anything acute. There is some evidence of remote ischemic changes. * Labs in ED: * WBC 6.156 * Hgb 15.0 * Plt count 170 * Neutrophils 63% * D-Dimer 2.10 * Sodium 136 * Potassium 4.1 * Anion Gap 15.1 * BUN 18 * Creatinine 1.3 * GFR 52 * Magnesium 2.0 * Troponin 0.055 * Albumin 3.5 * TSH 1.778 * UA negative * SARS-CoV-2 screen negative * Vital signs stable 03/20/2020 * Remains weak but otherwise no complaints * Very large BM today per nursing * Labs show creatinine of 1.4 and GFR of 48 (slightly worse) * Electrolytes WNL * Vitamin B12, Folic acid, CRP all WNL * Vitamin D slightly low at 27.9 - supplementation started * A1C 6.0% * RPR negative * Working with PT/OT * No nursing or patient concerns. * Vital signs stable * Remains off of oxygen 03/21/2020 The patient has a pacemaker in place and therefore is not able to undergo an MRI. We will consider CTA of the head in place. Patient still remains confused and one-to-one sitter will be continued. We will continue to monitor the patient's vital signs and if he becomes hypoxic we will institute oxygen the rapy. Laboratory studies have been ordered. We will continue to monitor and replace electrolytes as necessary. Currently awaiting placement. We will continue with PT OT. Will be monitored for falls. 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 The patient has been noticed to have a previous aneurysm. 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 The infarcts are in the frontal lobe and likely contributing to the patient's overall confusion. Patient will be maintained on fall risk. The patient will likely need to have long-term placement. Repeat laboratory studies have been ordered. Patient will be maintained on oxygen if necessary to keep his saturations above 90%. He will be continued on his appropriate ADA diet. 03/23/2020 The patient remains confused. The aneurysm that had been noted previously on the CT angiogram is chronic in nature and inoperable. This is likely the source of the patient's multiinfarct noted in his frontal lobe. This likely represents that the patient has worsening multi-infarct dementia. 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 The patient would be appropriate for consideration with placement likely in a skilled facility. Today he is currently in a full CODE STATUS and this will be honored. The patient should also ambulate with assistance. PT OT has also been ordered for the patient. He will be kept on the appropriate ADA diet. Patient will also be maintained on oxygen to keep his saturations above 90%. 03/24/20 Remains confused. Is having anxiety regarding detention placement. He is worried that he has not been to be able to return home. Needs continued encouragement that if he gets stronger he may be able to return home as his home is handicap accessible. Also having anxiety regarding dementia diagnosis. Vital signs remained stable and he is 94 to 98% on room air. CBC was unremarkable however his sodium went from 132 down to 130. The patient's weight is up from admit. In the last 24 hours he is +1290 on fluid intake. Upon further investigation, it was discovered that patient was supposed to be taking Lasix 40 mg daily. This was not on his home medication list. We called Dr. Larose's office and she verified that this indeed was the dosage of Lasix he is supposed to be taking daily. This will be restarted today. Hopefully with this addition his sodium level will begin to go back up. PT and OT will be working with the patient as well. 03/25/20 He is still confused today. When I rounded on him he was very fixated on the man upstairs. He was worried that the man was going to come to his room and he was going to have to answer to him. He was not oriented to place and when I did reorient him and tell him that there is no upstairs he was not excepting of this. Was also very anxious today regarding his bowels, telling me he has not had a bowel movement. Checked with nursing staff he has indeed had a bowel mo vement today. Vital signs remained stable and he is 92 to 97% on room air. Sodium is 129 that is down from 130, BUN is 21 and that is up from 19, creatinine 1.4 that is up from 1.2, GFR is 48 today and that is down from 58. Home Lasix dose was restarted yesterday. Patient's blood pressures seem to be tolerating that nicely. He still is consuming a large amount of water. And hopefully this will even out with the start of the Lasix as well as increase the sodium level. Will consider a fluid restriction if the sodium level does not start to climb back up. Patient is otherwise stable for discharge to the detention. 03/26/20 Confused today and more anxious about going to the detention. Vital signs remained stable. Sodium is 127 today down from 129 yesterday with the addition of his home Lasix restarted. BUN 26,Creatinine 1.5, GFR 44. The patient had 1350 out in the last 24 hours. He is +210 mL's on fluid. Urine Osmo is 223, random urine sodium is 29, serum osmole is 278, and BN P is 356. After consult with Dr. Ortiz, we agreed to place the patient on a 1200 mL fluid restriction. Echocardiogram obtained from shows that the left ventricular cavity size is normal. Left ventricular septal wall thickness was mildly increased. Left ventricular posterior wall thickness was normal. Left ventricular systolic function appears normal. Left ventricular ejection fraction is 50 to 55% by visual estimation. There are no obvious regional wall motion abnormalities, however not all daly could be adequately visualized. Abnormal paradoxical septal motion, consistent with left bundle branch block. Impaired left ventricular relaxation with elevated left ventricular filling pressuresgrade 1 diastolic dysfunction. Trace of aortic insufficiency. - Plan Plan:: I have seen and examined the patient independent of nurse practitioner Hilaria Espinoza and I have discussed the case with her. I have reviewed and agree with the assessment and plan as outlined for this patient by her. Discharge delayed due to insurance issues. Please see orders. 03/26/20 Patient accepted to [facility], however discharge is on hold at this time due to low sodium levels. Lasix will be discontinued. Will receive 1 L of normal saline over 4 hours. Random urine sodium and urine osmo will be collected in the morning. Repeat labs in the a.m. and correct any electrolyte abnormalities. Continue fluid restriction of 1200 mL's. Continue L ovenox for DVT prophylaxis. Will transfer to the detention when stable.
[2020-03-26] MEDS ORDERED: Sodium Chloride 0.9% 1,000 ML IV ONE (14:22)
[2020-03-26] MEDS: Acetaminophen 325 MG Tab PO PRN (20:23)
[2020-03-27] MEDS: Levothyroxine 112 MCG Tab PO SCH (05:33)
[2020-03-27] MEDS: Fenofibrate Nanocrystallized 145 MG Tab PO SCH (08:50)
[2020-03-27] MEDS: Cholecalciferol (Vitamin D3) 5,000 UNIT Cap PO SCH (08:50)
[2020-03-27] MEDS: buPROPion 150 MG Tab.SR PO SCH (08:50)
[2020-03-27] MEDS: Losartan 25 MG Tab PO SCH (08:50)
[2020-03-27] MEDS: Tamsulosin 0.4 MG Cap.ER PO SCH (08:50)
[2020-03-27] MEDS: Aspirin 81 MG Tab.Chew PO SCH (08:53)
[2020-03-27] MEDS: Ezetimibe 10 MG Tab PO SCH (08:53)
[2020-03-27] MEDS: Fluticasone Propionate Nasal Spray 16 GM Bottle NASBOTH SCH (08:54)
[2020-03-27] MEDS: Enoxaparin 40 MG/0.4 ML Syringe SUBCUT SCH (08:54)
[2020-03-27] MEDS: Carboxymethylcellulose Sodium 1% Ophth Gel 15 ML Bottle EYEBOTH SCH (08:54)
[2020-03-27] MEDS: ISOSORBIDE MONONITRATE 20 MG PO SCH ×2 (08:54→21:28)
[2020-03-27] MEDS ORDERED: Sodium Chloride 0.9% 1,000 ML IV SCH (09:30)
--- NOTE | 2020-03-27 10:19 | PCM.PN ---
- General Info Date of Service: 03/27/20 Admission Dx/Problem (Free Text): Admission Diagnosis/Problem Admission Diagnosis/Problem Failure to thrive Subjective Update: Remains anxious and confused. Did not remember eating breakfast. Functional Status: Reports: Pain Controlled, Tolerating Diet, Ambulating, Urinating (incontinent) - Review of Systems General: Reports: Weakness HEENT: Reports: Other (macular degeneration) Pulmonary: Reports: No Symptoms Cardiovascular: Reports: No Symptoms Gastrointestinal: Reports: No Symptoms Genitourinary: Reports: No Symptoms Musculoskeletal: Reports: No Symptoms Skin: Reports: No Symptoms Neurological: Reports: Confusion Psychiatric: Reports: Confusion, Anxiety - Patient Data Vitals - Most Recent: Last Vital Signs Temp 97.2 F 03/27/20 04:17 Pulse 73 03/27/20 04:17 Resp 18 03/27/20 04:17 BP 108/69 03/27/20 08:50 Pulse Ox 93 L 03/27/20 04:17 Orthostatic Blood Pressure [ 80/51 Standing] Orthostatic Blood Pressure [ 97/58 Supine] Weight - Most Recent: 216 lb 11.2 oz I&O - Last 24 Hours: Intake & Output 03/26/20 03/27/20 03/27/20 22:59 06:59 14:59 Intake Total 2890 100 90 Output Total 750 1500 Balance 2140 -1400 90 Lab Results Last 24 Hours: Laboratory Results - last 24 hr 03/26/20 03/26/20 03/26/20 Range/Units 08:13 08:13 12:20 WBC (4.23-9.07) K/mm3 RBC (4.63-6.08) M/mm3 Hgb (13.7-17.5) gm/dl Hct (40.1-51.0) % MCV (79.0-92.2) fl MCH (25.7-32.2) pg MCHC (32.2-35.5) g/dl RDW Std Deviation (35.1-43.9) fL Plt Count (163-337) K/mm3 MPV (9.4-12.3) fl Neut % (Auto) (34.0-67.9) % Lymph % (Auto) (21.8-53.1) % Deuel % (Auto) (5.3-12.2) % Eos % (Auto) (0.8-7.0) Baso % (Auto) (0.1-1.2) % Neut # (Auto) (1.78-5.38) K/mm3 Lymph # (Auto) (1.32-3.57) K/mm3 Deuel # (Auto) (0.30-0.82) K/mm3 Eos # (Auto) (0.04-0.54) K/mm3 Baso # (Auto) (0.01-0.08) K/mm3 Manual Slide Review Sodium (136-145) mEq/L Potassium (3.5-5.1) mEq/L Chloride (98-107) mEq/L Carbon Dioxide (21-32) mEq/L Anion Gap (5-15) BUN (7-18) mg/dL Creatinine (0.7-1.3) mg/dL Est Cr Clr Drug Dosing mL/min Estimated GFR (MDRD) (>60) mL/min BUN/Creatinine Ratio (14-18) Glucose (83-115) mg/dL Serum Osmolality 278 L (280-300) mosm/kg Calcium (8.5-10.1) mg/dL Magnesium (1.8-2.4) mg/dl Total Bilirubin (0.2-1.0) mg/dL AST (15-37) U/L ALT (16-63) U/L Alkaline Phosphatase (46-116) U/L NT-Pro-B Natriuret Pep 356 (0-450) pg/mL Total Protein (6.4-8.2) g/dl Albumin (3.4-5.0) g/dl Globulin gm/dL Albumin/Globulin Ratio (1-2) Urine Osmolality 223 L (400-1100) mosm/kg Ur Random Sodium (40-220) mEq/L 03/26/20 03/27/20 03/27/20 Range/Units 12:20 05:00 05:00 WBC (4.23-9.07) K/mm3 RBC (4.63-6.08) M/mm3 Hgb (13.7-17.5) gm/dl Hct (40.1-51.0) % MCV (79.0-92.2) fl MCH (25.7-32.2) pg MCHC (32.2-35.5) g/dl RDW Std Deviation (35.1-43.9) fL Plt Count (163-337) K/mm3 MPV (9.4-12.3) fl Neut % (Auto) (34.0-67.9) % Lymph % (Auto) (21.8-53.1) % Deuel % (Auto) (5.3-12.2) % Eos % (Auto) (0.8-7.0) Baso % (Auto) (0.1-1.2) % Neut # (Auto) (1.78-5.38) K/mm3 Lymph # (Auto) (1.32-3.57) K/mm3 Deuel # (Auto) (0.30-0.82) K/mm3 Eos # (Auto) (0.04-0.54) K/mm3 Baso # (Auto) (0.01-0.08) K/mm3 Manual Slide Review Sodium 132 L (136-145) mEq/L Potassium 4.4 (3.5-5.1) mEq/L Chloride 98 (98-107) mEq/L Carbon Dioxide 25 (21-32) mEq/L Anion Gap 13.4 (5-15) BUN 33 H (7-18) mg/dL Creatinine 1.4 H (0.7-1.3) mg/dL Est Cr Clr Drug Dosing 39.83 mL/min Estimated GFR (MDRD) 48 (>60) mL/min BUN/Creatinine Ratio 23.6 H (14-18) Glucose 106 (83-115) mg/dL Serum Osmolality 290 (280-300) mosm/kg Calcium 8.9 (8.5-10.1) mg/dL Magnesium 2.2 (1.8-2.4) mg/dl Total Bilirubin 0.7 (0.2-1.0) mg/dL AST 27 (15-37) U/L ALT 37 (16-63) U/L Alkaline Phosphatase 49 (46-116) U/L NT-Pro-B Natriuret Pep (0-450) pg/mL Total Protein 6.6 (6.4-8.2) g/dl Albumin 3.4 (3.4-5.0) g/dl Globulin 3.2 gm/dL Albumin/Globulin Ratio 1.1 (1-2) Urine Osmolality 215 L (400-1100) mosm/kg Ur Random Sodium 29 L 38 L (40-220) mEq/L 03/27/20 Range/Units 05:20 WBC 4.32 (4.23-9.07) K/mm3 RBC 4.82 (4.63-6.08) M/mm3 Hgb 13.9 (13.7-17.5) gm/dl Hct 42.1 (40.1-51.0) % MCV 87.3 (79.0-92.2) fl MCH 28.8 (25.7-32.2) pg MCHC 33.0 (32.2-35.5) g/dl RDW Std Deviation 47.2 H (35.1-43.9) fL Plt Count 156 L (163-337) K/mm3 MPV 9.2 L (9.4-12.3) fl Neut % (Auto) 50.9 (34.0-67.9) % Lymph % (Auto) 28.9 (21.8-53.1) % Deuel % (Auto) 15.5 H (5.3-12.2) % Eos % (Auto) 3.7 (0.8-7.0) Baso % (Auto) 0.5 (0.1-1.2) % Neut # (Auto) 2.20 (1.78-5.38) K/mm3 Lymph # (Auto) 1.25 L (1.32-3.57) K/mm3 Deuel # (Auto) 0.67 (0.30-0.82) K/mm3 Eos # (Auto) 0.16 (0.04-0.54) K/mm3 Baso # (Auto) 0.02 (0.01-0.08) K/mm3 Manual Slide Review Abnormal smear Sodium (136-145) mEq/L Potassium (3.5-5.1) mEq/L Chloride (98-107) mEq/L Carbon Dioxide (21-32) mEq/L Anion Gap (5-15) BUN (7-18) mg/dL Creatinine (0.7-1.3) mg/dL Est Cr Clr Drug Dosing mL/min Estimated GFR (MDRD) (>60) mL/min BUN/Creatinine Ratio (14-18) Glucose (83-115) mg/dL Serum Osmolality (280-300) mosm/kg Calcium (8.5-10.1) mg/dL Magnesium (1.8-2.4) mg/dl Total Bilirubin (0.2-1.0) mg/dL AST (15-37) U/L ALT (16-63) U/L Alkaline Phosphatase (46-116) U/L NT-Pro-B Natriuret Pep (0-450) pg/mL Total Protein (6.4-8.2) g/dl Albumin (3.4-5.0) g/dl Globulin gm/dL Albumin/Globulin Ratio (1-2) Urine Osmolality (400-1100) mosm/kg Ur Random Sodium (40-220) mEq/L Iftikhar Results Last 24 Hours: Microbiology 03/19/20 07:49 Aerobic Blood Culture - Final Blood - Venous - Lab Draw NO GROWTH AFTER 7 DAYS Anaerobic Blood Culture - Final NO GROWTH AFTER 7 DAYS 03/19/20 07:39 Aerobic Blood Culture - Final Blood - Venous NO GROWTH AFTER 7 DAYS Anaerobic Blood Culture - Final NO GROWTH AFTER 7 DAYS Med Orders - Current: Current Medications Acetaminophen (Tylenol) 650 mg PO Q4H PRN PRN Reason: Pain (Mild 1-3)/fever Last Admin: 03/26/20 20:23 Dose: 650 mg Documented by: Artificial Tears (Refresh Liquigel 1%) 0 ml EYEBOTH DAILY [facility] Last Admin: 03/27/20 08:54 Dose: 1 drop Documented by: Aspirin (Aspirin) 81 mg PO DAILY [facility] Last Admin: 03/27/20 08:53 Dose: 81 mg Documented by: Bupropion HCl (Wellbutrin Sr) 150 mg PO DAILY [facility] Last Admin: 03/27/20 08:50 Dose: 150 mg Documented by: Cholecalciferol (Vitamin D3) 5,000 unit PO DAILY [facility] Last Admin: 03/27/20 08:50 Dose: 5,000 unit Documented by: Docusate Sodium (Colace) 100 mg PO BID PRN PRN Reason: Constipation Last Admin: 03/25/20 20:41 Dose: 100 mg Documented by: Ezetimibe (Zetia) 10 mg PO DAILY [facility] Last Admin: 03/27/20 08:53 Dose: 10 mg Documented by: Enoxaparin Sodium (Lovenox) 40 mg SUBCUT DAILY [facility] Last Admin: 03/27/20 08:54 Dose: 40 mg Documented by: Fenofibrate (Tricor) 145 mg PO DAILY [facility] Last Admin: 03/27/20 08:50 Dose: 145 mg Documented by: Fluticasone Propionate (Flonase) 0 gm NASBOTH DAILY [facility] Last Admin: 03/27/20 08:54 Dose: 1 spray Documented by: Sodium Chloride (Normal Saline) 1,000 mls @ 100 mls/hr IV ASDIRECTED [facility] Stop: 03/27/20 19:29 Last Admin: 03/27/20 09:43 Dose: 100 mls/hr Documented by: Levothyroxine Sodium (Levothyroxine) 112 mcg PO ACBREAKFAST [facility] Last Admin: 03/27/20 05:33 Dose: 112 mcg Documented by: Losartan Potassium (Cozaar) 50 mg PO DAILY [facility] Last Admin: 03/27/20 08:50 Dose: 50 mg Documented by: Ondansetron HCl (Zofran) 4 mg IV Q6H PRN PRN Reason: Nausea/Vomiting Isosorbide Mononitrate 20 Mg Ptom 0 each PO BID [facility] Last Admin: 03/27/20 08:54 Dose: 1 each Documented by: Tamsulosin HCl (Flomax) 0.4 mg PO DAILY [facility] Last Admin: 03/27/20 08:50 Dose: 0.4 mg Documented by: Discontinued Medications Docusate Sodium (Colace) 100 mg PO BID [facility] Last Admin: 03/20/20 08:34 Dose: 100 mg Documented by: Furosemide (Lasix) 40 mg PO DAILY [facility] Last Admin: 03/26/20 08:07 Dose: 40 mg Documented by: Sodium Chloride (Normal Saline) 100 mls @ 75 mls/hr IV ASDIRECTED [facility] Last Admin: 03/19/20 09:02 Dose: 75 mls/hr Documented by: Sodium Chloride (Normal Saline) 1,000 mls @ 250 mls/hr IV ONETIME ONE Stop: 03/26/20 18:21 Last Admin: 03/26/20 15:01 Dose: 250 mls/hr Documented by: Iopamidol (Isovue-370 (76%)) 50 ml IVPUSH ONETIME ONE Stop: 03/19/20 08:56 Last Admin: 03/19/20 09:02 Dose: 50 ml Documented by: Iopamidol (Isovue-370 (76%)) 100 ml IVPUSH ONETIME ONE Stop: 03/19/20 08:56 Last Admin: 03/19/20 09:02 Dose: 100 ml Documented by: Isosorbide Dinitrate (Isordil) 20 mg PO ONETIME ONE Stop: 03/19/20 20:58 Last Admin: 03/19/20 21:26 Dose: 20 mg Documented by: Isosorbide Mononitrate 20 Mg Ptom 0 each PO BID [facility] Last Admin: 03/22/20 09:59 Dose: Not Given Documented by: Senna (Senna) 17.2 mg PO BID [facility] Last Admin: 03/21/20 01:21 Dose: Not Given Documented by: Sodium Chloride (Saline Flush) 10 ml FLUSH ONETIME PRN PRN Reason: IV FLUSH Last Admin: 03/19/20 09:02 Dose: 10 ml Documented by: - Exam Quality Assessment: DVT Prophylaxis (lovenox). No: Supplemental Oxygen General: Alert. No: Oriented (oriented to self only) HEENT: Pupils Equal, Mucous Membr. Moist/[place] Neck: Supple, Trachea Midline. No: Lymphadenopathy Lungs: Normal Respiratory Effort, Decreased Breath Sounds, Crackles (right posterior base) Cardiovascular: Regular Rate, Regular Rhythm GI/Abdominal Exam: Normal Bowel Sounds, Soft, Non-Tender, No Distention (Male) Exam: Deferred Extremities: Normal Inspection, Normal Range of Motion, Non-Tender, No Pedal Edema, Normal Capillary Refill Peripheral Pulses: 2+: Radial (L), Radial (R), Dorsalis Pedis (L), Dorsalis Pedis (R) Skin: Warm, Dry, Intact Neurological: No New Focal Deficit Psy/Mental Status: Alert, Anxious Sepsis Event Note - Evaluation Sepsis Screening Result: No Definite Risk - Focused Exam Vital Signs: Vital Signs Temp Pulse Resp BP Pulse Ox 03/27/20 08:50 108/69 03/27/20 04:17 97.2 F 73 18 120/67 93 L 03/26/20 23:01 97.5 F 61 16 113/50 L 94 L - Problem List & Annotations (1) Confusion and disorientation SNOMED Code(s): 40654353, 51313145 Code(s): R41.0 - DISORIENTATION, UNSPECIFIED Status: Acute Priority: High Current Visit: Yes (2) Falls SNOMED Code(s): 3621437, 419835521 Code(s): W19.XXXA - UNSPECIFIED FALL, INITIAL ENCOUNTER Status: Acute Priority: High Current Visit: Yes Qualifiers: Encounter type: initial encounter Qualified Code(s): W19.XXXA - Unspecified fall, initial encounter (3) Generalized weakness SNOMED Code(s): 87964382 Code(s): R53.1 - WEAKNESS Status: Acute Priority: High Current Visit: Yes (4) Hospital admission due to social situation SNOMED Code(s): 768613718 Code(s): Z60.9 - PROBLEM RELATED TO SOCIAL ENVIRONMENT, UNSPECIFIED Status: Acute Priority: High Current Visit: Yes (5) Multi-infarct dementia SNOMED Code(s): 64778663 Code(s): F01.50 - VASCULAR DEMENTIA WITHOUT BEHAVIORAL DISTURBANCE Status: Acute Priority: High Current Visit: Yes Qualifiers: Dementia behavioral disturbance: without behavioral disturbance Qualified Code(s): F01.50 - Vascular dementia without behavioral disturbance (6) Cerebral aneurysm SNOMED Code(s): 835164824 Code(s): I67.1 - CEREBRAL ANEURYSM, NONRUPTURED Status: Chronic Priority: Low Current Visit: No (7) S/P placement of cardiac pacemaker SNOMED Code(s): 936213274, 826648750, 842024438 Code(s): Z95.0 - PRESENCE OF CARDIAC PACEMAKER Status: Chronic Priority: Low Current Visit: No - Problem List Review Problem List Initiated/Reviewed/Updated: Yes - My Orders Last 24 Hours: My Active Orders 03/27/20 09:30 Sodium Chloride 0.9% [Normal Saline] 1,000 ml IV ASDIRECTED - Assessment Assessment:: Assessment on day of admission: 03/19/2020 * 84 yo male who reports to ED via ambulance with multiple falls and generalized weakness * Per , patient had been ambulating without difficulty until about a week ago * Per , patient is legally blind * Workup in ED basically unremarkable, however patient 2+ assist and unable to go home * Patient lives with in [place]. * Denies any injury or pain with falls * Denies any infectious symptoms * 12-lead EKG shows A-V paced rhythm * reports pacemaker was placed recently - well healing wound noted on left chest * CXR and CTA both show nothing acute. * Head CT negative for anything acute. There is some evidence of remote ischemic changes. * Labs in ED: * WBC 6.156 * Hgb 15.0 * Plt count 170 * Neutrophils 63% * D-Dimer 2.10 * Sodium 136 * Potassium 4.1 * Anion Gap 15.1 * BUN 18 * Creatinine 1.3 * GFR 52 * Magnesium 2.0 * Troponin 0.055 * Albumin 3.5 * TSH 1.778 * UA negative * SARS-CoV-2 screen negative * Vital signs stable 03/20/2020 * Remains weak but otherwise no complaints * Very large BM today per nursing * Labs show creatinine of 1.4 and GFR of 48 (slightly worse) * Electrolytes WNL * Vitamin B12, Folic acid, CRP all WNL * Vitamin D slightly low at 27.9 - supplementation started * A1C 6.0% * RPR negative * Working with PT/OT * No nursing or patient concerns. * Vital signs stable * Remains off of oxygen 03/21/2020 The patient has a pacemaker in place and therefore is not able to undergo an MRI. We will consider CTA of the head in place. Patient still remains confused and one-to-one sitter will be continued. We will continue to monitor the patient's vital signs and if he becomes hypoxic we will institute oxygen therapy. Laboratory studies have been ordered. We will continue to monitor and replace electrolytes as necessary. Currently awaiting placement. We will continue with PT OT. Will be monitored for falls. 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 The patient has been noticed to have a previous aneurysm. 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 The infarcts are in the frontal lobe and likely contributing to the patient's overall confusion. Patient will be maintained on fall risk. The patient will likely need to have long-term placement. Repeat laboratory studies have been ordered. Patient will be maintained on oxygen if necessary to keep his saturations above 90%. He will be continued on his appropriate ADA diet. 03/23/2020 The patient remains confused. The aneurysm that had been noted previously on the CT angiogram is chronic in nature and inoperable. This is likely the source of the patient's multiinfarct noted in his frontal lobe. This likely represents that the patient has worsening multi-infarct dementia. 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 The patient would be appropriate for consideration with placement likely in a skilled facility. Today he is currently in a full CODE STATUS and this will be honored. The patient should also ambulate with assistance. PT OT has also been ordered for the patient. He will be kept on the appropriate ADA diet. Patient will also be maintained on oxygen to keep his saturations above 90%. 03/24/20 Remains confused. Is having anxiety regarding long term placement. He is worried that he has not been to be able to return home. Needs continued encouragement that if he gets stronger he may be able to return home as his home is handicap accessible. Also having anxiety regarding dementia diagnosis. V ital signs remained stable and he is 94 to 98% on room air. CBC was unremarkable however his sodium went from 132 down to 130. The patient's weight is up from admit. In the last 24 hours he is +1290 on fluid intake. Upon further investigation, it was discovered that patient was supposed to be taking Lasix 40 mg daily. This was not on his home medication list. We called Dr. Larose's office and she verified that this indeed was the dosage of Lasix he is supposed to be taking daily. This will be restarted today. Hopefully with this addition his sodium level will begin to go back up. PT and OT will be working with the patient as well. 03/25/20 He is still confused today. When I rounded on him he was very fixated on the man upstairs. He was worried that the man was going to come to his room and he was going to have to answer to him. He was not oriented to place and when I did reorient him and tell him that there is no upstairs he was not excepting of this. Was also very anxious today regarding his bowels, telling me he has not had a bowel movement. Checked with nursing staff he has indeed had a bowel movement today. Vital signs remained stable and he is 92 to 97% on room air. Sodium is 129 that is down from 130, BUN is 21 and that is up from 19, creatinine 1.4 that is up from 1.2, GFR is 48 today and that is down from 58. Home Lasix dose was restarted yesterday. Patient's blood pressures seem to be tolerating that nicely. He still is consuming a large amount of water. And hopefully this will even out with the start of the Lasix as well as increase the sodium level. Will consider a fluid restriction if the sodium level does not start to climb back up. Patient is otherwise stable for discharge to the long term. 03/26/20 Confused today and more anxious about going to the long term. Vital signs remained stable. Sodium is 127 today down from 129 yesterday with the addition of his home Lasix restarted. BUN 26,Creatinine 1.5, GFR 44. The patient had 1350 out in the last 24 hours. He is +210 mL's on fluid. Urine Osmo is 223, random urine sodium is 29, serum osmole is 278, and BN P is 356. After consult with Dr. Ortiz, we agreed to place the patient on a 1200 mL fluid restriction. Echocardiogram obtained from shows that the left ventricular cavity size is normal. Left ventricular septal wall thickness was mildly increased. Left ventricular posterior wall thickness was normal. Left ventricular systolic function appears normal. Left ventricular ejection fraction is 50 to 55% by visual estimation. There are no obvious regional wall motion abnormalities, however not all daly could be adequately visualized. Abnormal paradoxical septal motion, consistent with left bundle branch block. Impaired left ventricular relaxation with elevated left ventricular filling pressuresgrade 1 diastolic dysfunction. Trace of aortic insufficiency. 03/27/20 Still confused today and more anxious. Was not able to recall that he had already eaten breakfast. Sodium is up to 132 today. Urine Osmo is 215, random urine sodium 38, serum Osmo 290. These results lead me to believe that he is in hypovolemic hyponatremia, so I will give him 1 more liter of IV fluids at a rate of 100 mL's per hour. I will continue his 1200 mL fluid restriction. His CBC was unremarkable today. BUN is 33 and creatinine is 1.4. Lasix was discontinued yesterday. - Plan Plan:: I have seen and examined the patient independent of nurse practitioner Hilaria Espinoza and I have discussed the case with her. I have reviewed and agree with the assessment and plan as outlined for this patient by her. Discharge delayed due to insurance issues. Please see orders. 03/26/20 Patient accepted to [facility], however discharge is on hold at this time due to low sodium levels. Lasix will be discontinued. Will receive 1 L of normal saline over 4 hours. Random urine sodium and urine osmo will be collected in the morning. Repeat labs in the a.m. and correct any fortino ctrolyte abnormalities. Continue fluid restriction of 1200 mL's. Continue Lovenox for DVT prophylaxis. Will transfer to the long term when stable. 03/27/20 Recheck labs in the a.m. Continue with 1200 mL fluid restriction. PT and OT to continue working with the patient. Give 1 L of normal saline today at 100 mL's per hour. Continue Lovenox for DVT prophylaxis. Plan for transfer to [facility] on Monday pending lab work and vital signs remained stable.
[2020-03-27] MEDS: Acetaminophen 325 MG Tab PO PRN (21:28)
[2020-03-28] MEDS: Levothyroxine 112 MCG Tab PO SCH (06:01)
[2020-03-28] MEDS: Cholecalciferol (Vitamin D3) 5,000 UNIT Cap PO SCH (08:17)
[2020-03-28] MEDS: Tamsulosin 0.4 MG Cap.ER PO SCH (08:17)
[2020-03-28] MEDS: Aspirin 81 MG Tab.Chew PO SCH (08:17)
[2020-03-28] MEDS: Ezetimibe 10 MG Tab PO SCH (08:17)
[2020-03-28] MEDS: Fenofibrate Nanocrystallized 145 MG Tab PO SCH (08:18)
[2020-03-28] MEDS: ISOSORBIDE MONONITRATE 20 MG PO SCH ×2 (08:18→21:56)
[2020-03-28] MEDS: buPROPion 150 MG Tab.SR PO SCH (08:18)
[2020-03-28] MEDS: Acetaminophen 325 MG Tab PO PRN (08:38)
[2020-03-28] MEDS: Losartan 25 MG Tab PO SCH (08:41)
[2020-03-28] MEDS: Carboxymethylcellulose Sodium 1% Ophth Gel 15 ML Bottle EYEBOTH SCH (08:41)
[2020-03-28] MEDS: Fluticasone Propionate Nasal Spray 16 GM Bottle NASBOTH SCH (08:41)
[2020-03-28] MEDS: Enoxaparin 40 MG/0.4 ML Syringe SUBCUT SCH (08:44)
--- NOTE | 2020-03-28 09:09 | PCM.PN ---
- General Info Date of Service: 03/28/20 Admission Dx/Problem (Free Text): Admission Diagnosis/Problem Admission Diagnosis/Problem Failure to thrive Subjective Update: The patient is a is 84-year-old gentleman who was admitted to acute hospitalization on March 19, 2020 due to failure to thrive. The patient says today that he is concerned that he is unable to feed himself. He has denied any pain. The patient also has been diagnosed with multi-infarct dementia and he is currently awaiting placement. Functional Status: Reports: Pain Controlled, Tolerating Diet (Not able to feed himself). Denies: Ambulating - Review of Systems General: Reports: Weakness, Fatigue HEENT: Reports: No Symptoms Pulmonary: Reports: No Symptoms Cardiovascular: Reports: No Symptoms Gastrointestinal: Reports: No Symptoms Genitourinary: Reports: No Symptoms Musculoskeletal: Reports: No Symptoms Skin: Reports: No Symptoms Neurological: Reports: Confusion, Weakness, Gait Disturbance Psychiatric: Reports: Depression - Patient Data Vitals - Most Recent: Last Vital Signs Temp 36.6 C 03/28/20 07:43 Pulse 60 03/28/20 07:43 Resp 16 03/28/20 07:43 BP 128/43 L 03/28/20 08:41 Pulse Ox 97 03/28/20 07:43 Orthostatic Blood Pressure [ 80/51 Standing] Orthostatic Blood Pressure [ 97/58 Supine] Weight - Most Recent: 99.291 kg I&O - Last 24 Hours: Intake & Output 03/27/20 03/28/20 03/28/20 22:59 06:59 14:59 Intake Total 1830 150 Output Total 875 850 Balance 955 -700 Med Orders - Current: Current Medications Acetaminophen (Tylenol) 650 mg PO Q4H PRN PRN Reason: Pain (Mild 1-3)/fever Last Admin: 03/28/20 08:38 Dose: 650 mg Documented by: Artificial Tears (Refresh Liquigel 1%) 0 ml EYEBOTH DAILY [facility] Last Admin: 03/28/20 08:41 Dose: 1 drop Documented by: Aspirin (Aspirin) 81 mg PO DAILY [facility] Last Admin: 03/28/20 08:17 Dose: 81 mg Documented by: Bupropion HCl (Wellbutrin Sr) 150 mg PO DAILY [facility] Last Admin: 03/28/20 08:18 Dose: 150 mg Documented by: Cholecalciferol (Vitamin D3) 5,000 unit PO DAILY [facility] Last Admin: 03/28/20 08:17 Dose: 5,000 unit Documented by: Docusate Sodium (Colace) 100 mg PO BID PRN PRN Reason: Constipation Last Admin: 03/25/20 20:41 Dose: 100 mg Documented by: Ezetimibe (Zetia) 10 mg PO DAILY [facility] Last Admin: 03/28/20 08:17 Dose: 10 mg Documented by: Enoxaparin Sodium (Lovenox) 40 mg SUBCUT DAILY [facility] Last Admin: 03/28/20 08:44 Dose: 40 mg Documented by: Fenofibrate (Tricor) 145 mg PO DAILY [facility] Last Admin: 03/28/20 08:18 Dose: 145 mg Documented by: Fluticasone Propionate (Flonase) 0 gm NASBOTH DAILY [facility] Last Admin: 03/28/20 08:41 Dose: 1 spray Documented by: Levothyroxine Sodium (Levothyroxine) 112 mcg PO ACBREAKFAST [facility] Last Admin: 03/28/20 06:01 Dose: 112 mcg Documented by: Losartan Potassium (Cozaar) 50 mg PO DAILY [facility] Last Admin: 03/28/20 08:41 Dose: 50 mg Documented by: Ondansetron HCl (Zofran) 4 mg IV Q6H PRN PRN Reason: Nausea/Vomiting Isosorbide Mononitrate 20 Mg Ptom 0 each PO BID [facility] Last Admin: 03/28/20 08:18 Dose: 1 each Documented by: Tamsulosin HCl (Flomax) 0.4 mg PO DAILY [facility] Last Admin: 03/28/20 08:17 Dose: 0.4 mg Documented by: Discontinued Medications Docusate Sodium (Colace) 100 mg PO BID [facility] Last Admin: 03/20/20 08:34 Dose: 100 mg Documented by: Furosemide (Lasix) 40 mg PO DAILY [facility] Last Admin: 03/26/20 08:07 Dose: 40 mg Documented by: Sodium Chloride (Normal Saline) 100 mls @ 75 mls/hr IV ASDIRECTED [facility] Last Admin: 03/19/20 09:02 Dose: 75 mls/hr Documented by: Sodium Chloride (Normal Saline) 1,000 mls @ 250 mls/hr IV ONETIME ONE Stop: 03/26/20 18:21 Last Admin: 03/26/20 15:01 Dose: 250 mls/hr Documented by: Sodium Chloride (Normal Saline) 1,000 mls @ 100 mls/hr IV ASDIRECTED [facility] Stop: 03/27/20 19:29 Last Admin: 03/27/20 09:43 Dose: 100 mls/hr Documented by: Iopamidol (Isovue-370 (76%)) 50 ml IVPUSH ONETIME ONE Stop: 03/19/20 08:56 Last Admin: 03/19/20 09:02 Dose: 50 ml Documented by: Iopamidol (Isovue-370 (76%)) 100 ml IVPUSH ONETIME ONE Stop: 03/19/20 08:56 Last Admin: 03/19/20 09:02 Dose: 100 ml Documented by: Isosorbide Dinitrate (Isordil) 20 mg PO ONETIME ONE Stop: 03/19/20 20:58 Last Admin: 03/19/20 21:26 Dose: 20 mg Documented by: Isosorbide Mononitrate 20 Mg Ptom 0 each PO BID [facility] Last Admin: 03/22/20 09:59 Dose: Not Given Documented by: Senna (Senna) 17.2 mg PO BID [facility] Last Admin: 03/21/20 01:21 Dose: Not Given Documented by: Sodium Chloride (Saline Flush) 10 ml FLUSH ONETIME PRN PRN Reason: IV FLUSH Last Admin: 03/19/20 09:02 Dose: 10 ml Documented by: - Exam Quality Assessment: No: Supplemental Oxygen General: Alert, Oriented HEENT: Pupils Equal, Pupils Reactive Neck: Supple, Trachea Midline Lungs: Clear to Auscultation, Normal Respiratory Effort Cardiovascular: Regular Rate, Murmurs (3 out of 6 systolic murmur) GI/Abdominal Exam: Normal Bowel Sounds, Soft, No Distention (Male) Exam: Deferred Back Exam: Normal Inspection (Age-appropriate) Extremities: Normal Inspection, No Pedal Edema Skin: Warm, Dry, Intact Neurological: No New Focal Deficit Psy/Mental Status: Alert, Depressed Sepsis Event Note - Evaluation Sepsis Screening Result: No Definite Risk - Focused Exam Vital Signs: Vital Signs Temp Pulse Resp BP Pulse Ox 03/28/20 08:41 128/43 L 03/28/20 08:02 156/68 H 03/28/20 07:43 36.6 C 60 16 167/59 H 97 03/28/20 03:46 36.4 C 64 18 126/64 95 - Problem List & Annotations (1) Multi-infarct dementia SNOMED Code(s): 93691946 Code(s): F01.50 - VASCULAR DEMENTIA WITHOUT BEHAVIORAL DISTURBANCE Status: Acute Priority: High Current Visit: Yes Qualifiers: Dementia behavioral disturbance: without behavioral disturbance Qualified Code(s): F01.50 - Vascular dementia without behavioral disturbance (2) Falls SNOMED Code(s): 9305562, 285463781 Code(s): W19.XXXA - UNSPECIFIED FALL, INITIAL ENCOUNTER Status: Acute Priority: High Current Visit: Yes Qualifiers: Encounter type: initial encounter Qualified Code(s): W19.XXXA - Unspecified fall, initial encounter (3) Generalized weakness SNOMED Code(s): 02358433 Code(s): R53.1 - WEAKNESS Status: Acute Priority: High Current Visit: Yes (4) Hospital admission due to social situation SNOMED Code(s): 203611917 Code(s): Z60.9 - PROBLEM RELATED TO SOCIAL ENVIRONMENT, UNSPECIFIED Status: Acute Priority: High Current Visit: Yes (5) S/P placement of cardiac pacemaker SNOMED Code(s): 567395557, 629740955, 925980106 Code(s): Z95.0 - PRESENCE OF CARDIAC PACEMAKER Status: Chronic Priority: Low Current Visit: No (6) Confusion and disorientation SNOMED Code(s): 00697942, 24077618 Code(s): R41.0 - DISORIENTATION, UNSPECIFIED Status: Acute Priority: High Current Visit: Yes (7) Cerebral aneurysm SNOMED Code(s): 449412437 Code(s): I67.1 - CEREBRAL ANEURYSM, NONRUPTURED Status: Chronic Priority: Low Current Visit: No - Problem List Review Problem List Initiated/Reviewed/Updated: Yes - Assessment Assessment:: Assessment on day of admission: 03/19/2020 * 84 yo male who reports to ED via ambulance with multiple falls and generalized weakness * Per , patient had been ambulating without difficulty until about a week ago * Per , patient is legally blind * Workup in ED basically unremarkable, however patient 2+ assist and unable to go home * Patient lives with in [place]. * Denies any injury or pain with falls * Denies any infectious symptoms * 12-lead EKG shows A-V paced rhythm * reports pacemaker was placed recently - well healing wound noted on left chest * CXR and CTA both show nothing acute. * Head CT negative for anything acute. There is some evidence of remote ischemic changes. * Labs in ED: * WBC 6.156 * Hgb 15.0 * Plt count 170 * Neutrophils 63% * D-Dimer 2.10 * Sodium 136 * Potassium 4.1 * Anion Gap 15.1 * BUN 18 * Creatinine 1.3 * GFR 52 * Magnesium 2.0 * Troponin 0.055 * Albumin 3.5 * TSH 1.778 * UA negative * SARS-CoV-2 screen negative * Vital signs stable 03/20/2020 * Remains weak but otherwise no complaints * Very large BM today per nursing * Labs show creatinine of 1.4 and GFR of 48 (slightly worse) * Electrolytes WNL * Vitamin B12, Folic acid, CRP all WNL * Vitamin D slightly low at 27.9 - supplementation started * A1C 6.0% * RPR negative * Working with PT/OT * No nursing or patient concerns. * Vital signs stable * Remains off of oxygen 03/21/2020 The patient has a pacemaker in place and therefore is not able to undergo an MRI. We will consider CTA of the head in place. Patient still remains confused and one-to-one sitter will be continued. We will continue to monitor the patient's vital signs and if he becomes hypoxic we will institute oxygen therapy. Laboratory studies have been ordered. We will continue to monitor and replace electrolytes as necessary. Currently awaiting placement. We will continue with PT OT. Will be monitored for falls. 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 The patient has been noticed to have a previous aneurysm. 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 The infarcts are in the frontal lobe and likely contributing to the patient's overall confusion. Patient will be maintained on fall risk. The patient will likely need to have long-term placement. Repeat laboratory studies have been ordered. Patient will be maintained on oxygen if necessary to keep his saturations above 90%. He will be continued on his appropriate ADA diet. 03/23/2020 The patient remains confused. The aneurysm that had been noted previously on the CT angiogram is chronic in nature and inoperable. This is likely the source of the patient's multiinfarct noted in his frontal lobe. This likely represents that the patient has worsening multi-infarct dementia. 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 The patient would be appropriate for consideration with placement likely in a skilled facility. Today he is currently in a full CODE STATUS and this will be honored. The patient should also ambulate with assistance. PT OT has also been ordered for the patient. He will be kept on the appropriate ADA diet. Patient will also be maintained on oxygen to keep his saturations above 90%. 03/24/20 Remains confused. Is having anxiety regarding [facility] placement. He is worried that he has not been to be able to return home. Needs continued encouragement that if he gets stronger he may be able to return home as his home is handicap accessible. Also having anxiety regarding dementia diagnosis. Vital signs remained stable and he is 94 to 98% on room air. CBC was unremarkable however his sodium went from 132 down to 130. The patient's weight is up from admit. In the last 24 hours he is +1290 on fluid intake. Upon fur ther investigation, it was discovered that patient was supposed to be taking Lasix 40 mg daily. This was not on his home medication list. We called Dr. Larose's office and she verified that this indeed was the dosage of Lasix he is supposed to be taking daily. This will be restarted today. Hopefully with this addition his sodium level will begin to go back up. PT and OT will be working with the patient as well. 03/25/20 He is still confused today. When I rounded on him he was very fixated on the man upstairs. He was worried that the man was going to come to his room and he was going to have to answer to him. He was not oriented to place and when I did reorient him and tell him that there is no upstairs he was not excepting of this. Was also very anxious today regarding his bowels, telling me he has not had a bowel movement. Checked with nursing staff he has indeed had a bowel movement today. Vital signs remained stable and he is 92 to 97% on room air. Sodium is 129 that is down from 130, BUN is 21 and that is up from 19, creatinine 1.4 that is up from 1.2, GFR is 48 today and that is down from 58. Home Lasix dose was restarted yesterday. Patient's blood pressures seem to be tolerating that nicely. He still is consuming a large amount of water. And hopefully this will even out with the start of the Lasix as well as increase the sodium level. Will consider a fluid restriction if the sodium level does not start to climb back up. Patient is otherwise stable for discharge to the [facility]. 03/26/20 Confused today and more anxious about going to the [facility]. Vital signs remained stable. Sodium is 127 today down from 129 yesterday with the addition of his home Lasix restarted. BUN 26,Creatinine 1.5, GFR 44. The patient had 1350 out in the last 24 hours. He is +210 mL's on fluid. Urine Osmo is 223, random urine sodium is 29, serum osmole is 278, and BN P is 356. After consult with Dr. Ortiz, we agreed to place the patient on a 1200 mL fluid restriction. Echocardiogram obtained from shows that the left ventricular cavity size is normal. Left ventricular septal wall thickness was mildly increased. Left ventricular posterior wall thickness was normal. Left ventricular systolic function appears normal. Left ventricular ejection fraction is 50 to 55% by visual estimation. There are no obvious regional wall motion abnormalities, however not all daly could be adequately visualized. Abnormal paradoxical septal motion, consistent with left bundle branch block. Impaired left ventricular relaxation with elevated left ventricular filling pressuresgrade 1 diastolic dysfunction. Trace of aortic insufficiency. 03/27/20 Still confused today and more anxious. Was not able to recall that he had already eaten breakfast. Sodium is up to 132 today. Urine Osmo is 215, random urine sodium 38, serum Osmo 290. These results lead me to believe that he is in hypovolemic hyponatremia, so I will give him 1 more liter of IV fluids at a rate of 100 mL's per hour. I will continue his 1200 mL fluid restriction. His CBC was unremarkable today. BUN is 33 and creatinine is 1.4. Lasix was discontinued yesterday. - Plan Plan:: I have seen and examined the patient independent of nurse practitioner Hilaria Espinoza and I have discussed the case with her. I have reviewed and agree with the assessment and plan as outlined for this patient by her. Discharge delayed due to insurance issues. Please see orders. 03/26/20 Patient accepted to [facility], however discharge is on hold at this time due to low sodium levels. Lasix will be discontinued. Will receive 1 L of normal saline over 4 hours. Random urine sodium and urine osmo will be collected in the morning. Repeat labs in the a.m. and correct any electrolyte abnormalities. Continue fluid restriction of 1200 mL's. Continue Lovenox for DVT prophylaxis. Will transfer to the [facility] when stable. 03/27/20 Recheck labs in the a.m. Continue with 1200 mL fluid restriction. PT and OT to continue working with the patient. Give 1 L of normal saline today at 100 mL's per hour. Continue Lovenox for DVT prophylaxis. Plan for transfer to [facility] on Monday pending lab work and vital signs remained stable. 03/28/2020 The patient had originally been admitted secondary to gait disturbance as well as failure to thrive. He is currently awaiting placement. The patient also has a diagnosis of multi-infarct dementia. Physical therapy will continue with the patient evaluation. I am concerned that the patient has apparently developed some depression at his inability to do things for himself. We will continue to watch this and possibly will need to have a psychiatric consult. CBC, CMP have been ordered. The patient will continue to be encouraged to set up with distance. Recommend continued use of incentive spirometer.
[2020-03-28] MEDS: Docusate Sodium 100 MG Cap PO PRN (20:04)
[2020-03-29] MEDS: Levothyroxine 112 MCG Tab PO SCH (05:51)
--- NOTE | 2020-03-29 07:28 | PCM.PN ---
- General Info Date of Service: 03/29/20 Admission Dx/Problem (Free Text): Admission Diagnosis/Problem Admission Diagnosis/Problem Failure to thrive Subjective Update: The patient is an 84-year-old gentleman who was admitted on March 19, 2020 due to failure to thrive. Patient says that he is still depressed about his rapid decline. The patient has denied any pain. The patient however has been complaining of constipation. He still has not been able to ambulate adequately. He also had been diagnosed with multi-infarct dementia. The patient is currently awaiting placement. Functional Status: Reports: Pain Controlled, Tolerating Diet - Review of Systems General: Reports: Weakness, Fatigue HEENT: Reports: No Symptoms Pulmonary: Reports: No Symptoms Cardiovascular: Reports: No Symptoms Gastrointestinal: Reports: Constipation Genitourinary: Reports: No Symptoms Musculoskeletal: Reports: No Symptoms Skin: Reports: No Symptoms Neurological: Reports: No Symptoms Psychiatric: Reports: Depression - Patient Data Vitals - Most Recent: Last Vital Signs Temp 36.4 C 03/29/20 05:51 Pulse 81 03/29/20 05:51 Resp 18 03/29/20 05:51 BP 151/68 H 03/29/20 05:51 Pulse Ox 98 03/29/20 05:51 Orthostatic Blood Pressure [ 80/51 Standing] Orthostatic Blood Pressure [ 97/58 Supine] Weight - Most Recent: 98.611 kg I&O - Last 24 Hours: Intake & Output 03/28/20 03/29/20 03/29/20 22:59 06:59 14:59 Intake Total 330 150 Output Total 600 550 Balance -270 -400 Lab Results Last 24 Hours: Laboratory Results - last 24 hr 03/29/20 03/29/20 Range/Units 06:10 06:10 WBC 4.24 (4.23-9.07) K/mm3 RBC 4.73 (4.63-6.08) M/mm3 Hgb 13.8 (13.7-17.5) gm/dl Hct 42.5 (40.1-51.0) % MCV 89.9 (79.0-92.2) fl MCH 29.2 (25.7-32.2) pg MCHC 32.5 (32.2-35.5) g/dl RDW Std Deviation 49.2 H (35.1-43.9) fL Plt Count 158 L (163-337) K/mm3 MPV 9.1 L (9.4-12.3) fl Neut % (Auto) 54.3 (34.0-67.9) % Lymph % (Auto) 26.2 (21.8-53.1) % [place] % (Auto) 16.0 H (5.3-12.2) % Eos % (Auto) 2.8 (0.8-7.0) Baso % (Auto) 0.2 (0.1-1.2) % Neut # (Auto) 2.30 (1.78-5.38) K/mm3 Lymph # (Auto) 1.11 L (1.32-3.57) K/mm3 [place] # (Auto) 0.68 (0.30-0.82) K/mm3 Eos # (Auto) 0.12 (0.04-0.54) K/mm3 Baso # (Auto) 0.01 (0.01-0.08) K/mm3 Sodium 137 (136-145) mEq/L Potassium 4.5 (3.5-5.1) mEq/L Chloride 102 (98-107) mEq/L Carbon Dioxide 27 (21-32) mEq/L Anion Gap 12.5 (5-15) BUN 29 H (7-18) mg/dL Creatinine 1.2 (0.7-1.3) mg/dL Est Cr Clr Drug Dosing 46.47 mL/min Estimated GFR (MDRD) 58 (>60) mL/min BUN/Creatinine Ratio 24.2 H (14-18) Glucose 103 (83-115) mg/dL Calcium 8.7 (8.5-10.1) mg/dL Med Orders - Current: Current Medications Acetaminophen (Tylenol) 650 mg PO Q4H PRN PRN Reason: Pain (Mild 1-3)/fever Last Admin: 03/28/20 08:38 Dose: 650 mg Documented by: Artificial Tears (Refresh Liquigel 1%) 0 ml EYEBOTH DAILY [facility] Last Admin: 03/28/20 08:41 Dose: 1 drop Documented by: Aspirin (Aspirin) 81 mg PO DAILY [facility] Last Admin: 03/28/20 08:17 Dose: 81 mg Documented by: Bupropion HCl (Wellbutrin Sr) 150 mg PO DAILY [facility] Last Admin: 03/28/20 08:18 Dose: 150 mg Documented by: Cholecalciferol (Vitamin D3) 5,000 unit PO DAILY [facility] Last Admin: 03/28/20 08:17 Dose: 5,000 unit Documented by: Docusate Sodium (Colace) 100 mg PO BID PRN PRN Reason: Constipation Last Admin: 03/28/20 20:04 Dose: 100 mg Documented by: Ezetimibe (Zetia) 10 mg PO DAILY [facility] Last Admin: 03/28/20 08:17 Dose: 10 mg Documented by: Enoxaparin Sodium (Lovenox) 40 mg SUBCUT DAILY [facility] Last Admin: 03/28/20 08:44 Dose: 40 mg Documented by: Fenofibrate (Tricor) 145 mg PO DAILY [facility] Last Admin: 03/28/20 08:18 Dose: 145 mg Documented by: Fluticasone Propionate (Flonase) 0 gm NASBOTH DAILY [facility] Last Admin: 03/28/20 08:41 Dose: 1 spray Documented by: Levothyroxine Sodium (Levothyroxine) 112 mcg PO ACBREAKFAST [facility] Last Admin: 03/29/20 05:51 Dose: 112 mcg Documented by: Losartan Potassium (Cozaar) 50 mg PO DAILY [facility] Last Admin: 03/28/20 08:41 Dose: 50 mg Documented by: Ondansetron HCl (Zofran) 4 mg IV Q6H PRN PRN Reason: Nausea/Vomiting Isosorbide Mononitrate 20 Mg Ptom 0 each PO BID [facility] Last Admin: 03/28/20 21:56 Dose: 1 each Documented by: Tamsulosin HCl (Flomax) 0.4 mg PO DAILY [facility] Last Admin: 03/28/20 08:17 Dose: 0.4 mg Documented by: Discontinued Medications Docusate Sodium (Colace) 100 mg PO BID [facility] Last Admin: 03/20/20 08:34 Dose: 100 mg Documented by: Furosemide (Lasix) 40 mg PO DAILY [facility] Last Admin: 03/26/20 08:07 Dose: 40 mg Documented by: Sodium Chloride (Normal Saline) 100 mls @ 75 mls/hr IV ASDIRECTED [facility] Last Admin: 03/19/20 09:02 Dose: 75 mls/hr Documented by: Sodium Chloride (Normal Saline) 1,000 mls @ 250 mls/hr IV ONETIME ONE Stop: 10/15/20 18:21 Last Admin: 03/26/20 15:01 Dose: 250 mls/hr Documented by: Sodium Chloride (Normal Saline) 1,000 mls @ 100 mls/hr IV ASDIRECTED [facility] Stop: 03/27/20 19:29 Last Admin: 03/27/20 09:43 Dose: 100 mls/hr Documented by: Iopamidol (Isovue-370 (76%)) 50 ml IVPUSH ONETIME ONE Stop: 03/19/20 08:56 Last Admin: 03/19/20 09:02 Dose: 50 ml Documented by: Iopamidol (Isovue-370 (76%)) 100 ml IVPUSH ONETIME ONE Stop: 03/19/20 08:56 Last Admin: 03/19/20 09:02 Dose: 100 ml Documented by: Isosorbide Dinitrate (Isordil) 20 mg PO ONETIME ONE Stop: 03/19/20 20:58 Last Admin: 03/19/20 21:26 Dose: 20 mg Documented by: Isosorbide Mononitrate 20 Mg Ptom 0 each PO BID [facility] Last Admin: 03/22/20 09:59 Dose: Not Given Documented by: Senna (Senna) 17.2 mg PO BID [facility] Last Admin: 03/21/20 01:21 Dose: Not Given Documented by: Sodium Chloride (Saline Flush) 10 ml FLUSH ONETIME PRN PRN Reason: IV FLUSH Last Admin: 03/19/20 09:02 Dose: 10 ml Documented by: - Exam Quality Assessment: No: Supplemental Oxygen General: Alert. No: Oriented (Confused at times) HEENT: Pupils Equal, Pupils Reactive, EOMI Neck: Supple, Trachea Midline Lungs: Clear to Auscultation, Normal Respiratory Effort Cardiovascular: Regular Rate, Regular Rhythm GI/Abdominal Exam: Normal Bowel Sounds, Soft, No Distention (Male) Exam: Deferred Back Exam: Normal Inspection, Full Range of Motion Extremities: Normal Inspection, No Pedal Edema Psy/Mental Status: Alert, Depressed, Other (Flat affect) Sepsis Event Note - Evaluation Sepsis Screening Result: No Definite Risk - Focused Exam Vital Signs: Vital Signs Temp Pulse Resp BP Pulse Ox 03/29/20 05:51 36.4 C 81 18 151/68 H 98 03/28/20 20:02 59 L 111/72 94 L 03/28/20 20:01 36.6 C 60 18 132/49 L 95 - Problem List & Annotations (1) Depression SNOMED Code(s): 92818130 Code(s): F32.9 - MAJOR DEPRESSIVE DISORDER, SINGLE EPISODE, UNSPECIFIED Status: Chronic Priority: Low Current Visit: No Qualifiers: Depression Type: reactive depression Qualified Code(s): F32.9 - Major depressive disorder, single episode, unspecified (2) Multi-infarct dementia SNOMED Code(s): 41163002 Code(s): F01.50 - VASCULAR DEMENTIA WITHOUT BEHAVIORAL DISTURBANCE Status: Acute Priority: High Current Visit: Yes Qualifiers: Dementia behavioral disturbance: without behavioral disturbance Qualified Code(s): F01.50 - Vascular dementia without behavioral disturbance (3) Falls SNOMED Code(s): 8147713, 807028259 Code(s): W19.XXXA - UNSPECIFIED FALL, INITIAL ENCOUNTER Status: Acute Priority: High Current Visit: Yes Qualifiers: Encounter type: initial encounter Qualified Code(s): W19.XXXA - Unspecified fall, initial encounter (4) Generalized weakness SNOMED Code(s): 33684920 Code(s): R53.1 - WEAKNESS Status: Acute Priority: High Current Visit: Yes (5) Hospital admission due to social situation SNOMED Code(s): 598346863 Code(s): Z60.9 - PROBLEM RELATED TO SOCIAL ENVIRONMENT, UNSPECIFIED Status: Acute Priority: High Current Visit: Yes (6) S/P placement of cardiac pacemaker SNOMED Code(s): 146042478, 549508102, 818812440 Code(s): Z95.0 - PRESENCE OF CARDIAC PACEMAKER Status: Chronic Priority: Low Current Visit: No (7) Confusion and disorientation SNOMED Code(s): 80069102, 08499781 Code(s): R41.0 - DISORIENTATION, UNSPECIFIED Status: Acute Priority: High Current Visit: Yes (8) Cerebral aneurysm SNOMED Code(s): 432533231 Code(s): I67.1 - CEREBRAL ANEURYSM, NONRUPTURED Status: Chronic Priority: Low Current Visit: No - Problem List Review Problem List Initiated/Reviewed/Updated: Yes - My Orders Last 24 Hours: My Active Orders 03/29/20 06:10 CBC WITH AUTO DIFF [HEME] AM - Assessment Assessment:: Assessment on day of admission: 03/19/2020 * 84 yo male who reports to ED via ambulance with multiple falls and generalized weakness * Per , patient had been ambulating without difficulty until about a week ago * Per , patient is legally blind * Workup in ED basically unremarkable, however patient 2+ assist and unable to go home * Patient lives with in [place]. * Denies any injury or pain with falls * Denies any infectious symptoms * 12-lead EKG shows A-V paced rhythm * reports pacemaker was placed recently - well healing wound noted on left chest * CXR and CTA both show nothing acute. * Head CT negative for anything acute. There is some evidence of remote ischemic changes. * Labs in ED: * WBC 6.156 * Hgb 15.0 * Plt count 170 * Neutrophils 63% * D-Dimer 2.10 * Sodium 136 * Potassium 4.1 * Anion Gap 15.1 * BUN 18 * Creatinine 1.3 * GFR 52 * Magnesium 2.0 * Troponin 0.055 * Albumin 3.5 * TSH 1.778 * UA negative * SARS-CoV-2 screen negative * Vital signs stable 03/20/2020 * Remains weak but otherwise no complaints * Very large BM today per nursing * Labs show creatinine of 1.4 and GFR of 48 (slightly worse) * Electrolytes WNL * Vitamin B12, Folic acid, CRP all WNL * Vitamin D slightly low at 27.9 - supplementation started * A1C 6.0% * RPR negative * Working with PT/OT * No nursing or patient concerns. * Vital signs stable * Remains off of oxygen 03/21/2020 The patient has a pacemaker in place and therefore is not able to undergo an MRI. We will consider CTA of the head in place. Patient still remains confused and one-to-one sitter will be continued. We will continue to monitor the patient's vital signs and if he becomes hypoxic we will institute oxygen therapy. Laboratory studies have been ordered. We will continue to monitor and replace electrolytes as necessary. Currently awaiting placement. We will continue with PT OT. Will be monitored for falls. 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 The patient has been noticed to have a previous aneurysm. 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 The infarcts are in the frontal lobe and likely contributing to the patient's overall confusion. Patient will be maintained on fall risk. The patient will likely need to have long-term placement. Repeat laboratory studies have been ordered. Patient will be maintained on oxygen if necessary to keep his saturations above 90%. He will be continued on his appropriate ADA diet. 03/23/2020 The patient remains confused. The aneurysm that had been noted previously on the CT angiogram is chronic in nature and inoperable. This is likely the source of the patient's multiinfarct noted in his frontal lobe. This likely represents that the patient has worsening multi-infarct dementia. 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 The patient would be appropriate for consideration with placement likely in a skilled facility. Today he is currently in a full CODE STATUS and this will be honored. The patient should also ambulate with assistance. PT OT has also been ordered for the patient. He will be kept on the appropriate ADA diet. Patient will also be maintained on oxygen to keep his saturations above 90%. 03/24/20 Remains confused. Is having anxiety regarding care home placement. He is worried that he has not been to be able to return home. Needs continued encouragement that if he gets stronger he may be able to return home as his home is handicap accessible. Also having anxiety regarding dementia diagnosis. Vital signs remained stable and he is 94 to 98% on room air. CBC was unremarkable however his sodium went from 132 down to 130. The patient's weight is up from admit. In the last 24 hours he is +1290 on fluid intake. Upon further investigation, it was discovered that patient was supposed to be taking Lasix 40 mg daily. This was not on his home medication list. We called Dr. Larose's office and she verified that this indeed was the dosage of Lasix he is supposed to be taking daily. This will be restarted today. Hopefully with this addition his sodium level will begin to go back up. PT and OT will be working with the patient as well. 03/25/20 He is still confused today. When I rounded on him he was very fixated on the man upstairs. He was worried that the man was going to come to his room and he was going to have to answer to him. He was not oriented to place and when I did reorient him and tell him that there is no upstairs he was not excepting of this. Was also very anxious today regarding his bowels, telling me he has not had a bowel movement. Checked with nursing staff he has indeed had a bowel movement today. Vital signs remained stable and he is 92 to 97% on room air. Sodium is 129 that is down from 130, BUN is 21 and that is up from 19, creatinine 1.4 that is up from 1.2, GFR is 48 today and that is down from 58. Home Lasix dose was restarted yesterday. Patient's blood pressures seem to be tolerating that nicely. He still is consuming a large amount of water. And hopefully this will even out with the start of the Lasix as well as increase the sodium level. Will consider a fluid restriction if the sodium level does not start to climb back up. Patient is otherwise stable for discharge to the [facility]. 03/26/20 Confused today and more anxious about going to the care home. Vital signs remained stable. Sodium is 127 today down from 129 yesterday with the addition of his home Lasix restarted. BUN 26,Creatinine 1.5, GFR 44. The patient had 1350 out in the last 24 hours. He is +210 mL's on fluid. Urine Osmo is 223, random urine sodium is 29, serum osmole is 278, and BN P is 356. After consult with Dr. Ortiz, we agreed to place the patient on a 1200 mL fluid restriction. Echocardiogram obtained from 81 shows that the left ventricular cavity size is normal. Left ventricular septal wall thickness was mildly increased. Left ventricular posterior wall thickness was normal. Left ventricular systolic function appears normal. Left ventricular ejection fraction is 50 to 55% by visual estimation. There are no obvious regional wall motion abnormalities, however not all daly could be adequately visualized. Abnormal paradoxical septal motion, consistent with left bundle branch block. Impaired left ventricular relaxation with elevated left ventricular filling pressuresgrade 1 diastolic dysfunction. Trace of aortic insufficiency. 03/27/20 Still confused today and more anxious. Was not able to recall that he had already eaten breakfast. Sodium is up to 132 today. Urine Osmo is 215, random urine sodium 38, serum Osmo 290. These results lead me to believe that he is in hypovolemic hyponatremia, so I will give him 1 more liter of IV fluids at a rate of 100 mL's per hour. I will continue his 1200 mL fluid restriction. His CBC was unremarkable today. BUN is 33 and creatinine is 1.4. Lasix was discontinued yesterday. - Plan Plan:: I have seen and examined the patient independent of nurse practitioner Hilaria Espinoza and I have discussed the case with her. I have reviewed and agree with the assessment and plan as outlined for this patient by her. Discharge delayed due to insurance issues. Please see orders. 03/26/20 Patient accepted to [facility], however discharge is on hold at this time due to low sodium levels. Lasix will be discontinued. Will receive 1 L of normal saline over 4 hours. Random urine sodium and urine osmo will be collected in the morning. Repeat labs in the a.m. and correct any electrolyte abnormalities. Continue fluid restriction of 1200 mL's. Continue Lovenox for DVT prophylaxis. Will transfer to the care home when stable. 03/27/20 Recheck labs in the a.m. Continue with 1200 mL fluid restriction. PT and OT to continue working with the patient. Give 1 L of normal saline today at 100 mL's per hour. Continue Lovenox for DVT prophylaxis. Plan for transfer to [facility] on Monday pending lab work and vital signs remained stable. 03/28/2020 The patient had originally been admitted secondary to gait disturbance as well as failure to thrive. He is currently awaiting placement. The patient also has a diagnosis of multi-infarct dementia. Physical therapy will continue with the patient evaluation. I am concerned that the patient has apparently developed some depression at his inability to do things for himself. We will continue to watch this and possibly will need to have a psychiatric consult. CBC, CMP have been ordered. The patient will continue to be encouraged to set up with distance. Recommend continued use of incentive spirometer. 03/29/2020 The patient has been voicing some concerns with his inability to feed himself. This is led to depression. He is currently on Wellbutrin 150 mg p.o. daily. I have ordered a consult with Dr. Reyez. I have ordered fleets enema x1 to help with the patient's constipation. Currently awaiting placement. Physical therapy will continue. I have ordered laboratory testings for tomorrow to include CBC, CMP. Patient also has been encouraged to ambulate with assistance. We will continue with DVT prophylaxis.
[2020-03-29] MEDS: Enoxaparin 40 MG/0.4 ML Syringe SUBCUT SCH (09:11)
[2020-03-29] MEDS: Fenofibrate Nanocrystallized 145 MG Tab PO SCH (09:12)
[2020-03-29] MEDS: Tamsulosin 0.4 MG Cap.ER PO SCH (09:13)
[2020-03-29] MEDS: Ezetimibe 10 MG Tab PO SCH (09:13)
[2020-03-29] MEDS: Losartan 25 MG Tab PO SCH (09:14)
[2020-03-29] MEDS: buPROPion 150 MG Tab.SR PO SCH (09:24)
[2020-03-29] MEDS: Aspirin 81 MG Tab.Chew PO SCH (09:24)
[2020-03-29] MEDS: Cholecalciferol (Vitamin D3) 5,000 UNIT Cap PO SCH (09:24)
[2020-03-29] MEDS: Carboxymethylcellulose Sodium 1% Ophth Gel 15 ML Bottle EYEBOTH SCH (09:56)
[2020-03-29] MEDS: Fluticasone Propionate Nasal Spray 16 GM Bottle NASBOTH SCH (09:56)
[2020-03-29] MEDS: ISOSORBIDE MONONITRATE 20 MG PO SCH ×2 (09:56→20:02)
[2020-03-30] MEDS: Levothyroxine 112 MCG Tab PO SCH (06:03)
[2020-03-30] MEDS: Losartan 25 MG Tab PO SCH (08:52)
[2020-03-30] MEDS: Ezetimibe 10 MG Tab PO SCH (08:52)
[2020-03-30] MEDS: ISOSORBIDE MONONITRATE 20 MG PO SCH (08:52)
[2020-03-30] MEDS: Aspirin 81 MG Tab.Chew PO SCH (08:52)
[2020-03-30] MEDS: Tamsulosin 0.4 MG Cap.ER PO SCH (08:54)
[2020-03-30] MEDS: buPROPion 150 MG Tab.SR PO SCH (08:55)
[2020-03-30] MEDS: Cholecalciferol (Vitamin D3) 5,000 UNIT Cap PO SCH (08:55)
[2020-03-30] MEDS: Fenofibrate Nanocrystallized 145 MG Tab PO SCH (08:56)
[2020-03-30] MEDS: Fluticasone Propionate Nasal Spray 16 GM Bottle NASBOTH SCH (08:56)
[2020-03-30] MEDS: Carboxymethylcellulose Sodium 1% Ophth Gel 15 ML Bottle EYEBOTH SCH (08:57)
[2020-03-30] MEDS: Enoxaparin 40 MG/0.4 ML Syringe SUBCUT SCH (08:58)
--- NOTE | 2020-03-30 12:43 | PCM.DCSUM1 ---
<Hilaria Espinoza M - Last Filed: 03/30/20 12:50> Discharge Summary - Hospital Course HPI Initial Comments: Patient is an 84 yo male who presented to our ED on 03/19/2020 via ambulance with increasing generalized weakness and multiple falls. He denies any injuries due to these falls or any pain. He is a poor historian and does admit that he has not been taking his medications as he should. In the ED he is hemodynamically stable, afebrile, and saturations are 94% on room air. Orthostatics are obtained and are negative. He does report an occasional dry cough but otherwise denies any recent fever, chills, sore throat, ear pain, congestion, dyspnea, chest pain, palpitations, nausea, vomiting constipation, diarrhea, abdominal pain, urinary symptoms, recent weight gain or weight loss, recent hematochezia, recent melena, joint aches, headaches, or rashes. In the ED twelve-lead EKG is obtained showing AV paced rhythm at 62 bpm. Patient reports that he recently had his pacemaker placed. He is afebrile at 97.7 Fahrenheit. Pulse 65. Respirations 16. Blood pressure 112/73. Pulse ox 94%. CBC is obtained and is grossly normal, CMP is obtained and is grossly normal. Troponin is negative at 0.055. TSH is 1.778. UA is negative. SARS-CoV-2 screen is negative. Blood cultures obtained and are pending. He started on NS at 75 mils an hour. D-dimer is obtained and is elevated at 2.1. PA of the chest is obtained and shows no PA and nothing acute. Attempted to get the patient up and he was requiring 2 people to assist. It is felt he will need to be placed for SNF care. 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 He is a prior smoker. His PCP is Dr. Larose. His cardiovascular surgeon is Dr. Parmar. Diagnosis: Stroke: No - Discharge Data Discharge Date: 03/30/20 (Admit Date: 03/19/20) Discharge Disposition: DC/Tfer to SNF 03 Condition: Good - Referral to Home Health Primary Care Physician: Krista Larose MD - Discharge Diagnosis/Problem(s) (1) Confusion and disorientation SNOMED Code(s): 48925017, 23044320 ICD Code: R41.0 - DISORIENTATION, UNSPECIFIED Status: Acute Priority: High (2) Falls SNOMED Code(s): 8812666, 932655976 ICD Code: W19.XXXA - UNSPECIFIED FALL, INITIAL ENCOUNTER Status: Acute Priority: High Qualifiers: Encounter type: initial encounter Qualified Code(s): W19.XXXA - Unspecified fall, initial encounter (3) Generalized weakness SNOMED Code(s): 44019312 ICD Code: R53.1 - WEAKNESS Status: Acute Priority: High (4) Hospital admission due to social situation SNOMED Code(s): 576714757 ICD Code: Z60.9 - PROBLEM RELATED TO SOCIAL ENVIRONMENT, UNSPECIFIED Status: Acute Priority: High (5) Multi-infarct dementia SNOMED Code(s): 93759814 ICD Code: F01.50 - VASCULAR DEMENTIA WITHOUT BEHAVIORAL DISTURBANCE Status: Acute Priority: High Qualifiers: Dementia behavioral disturbance: without behavioral disturbance Qualified Code(s): F01.50 - Vascular dementia without behavioral disturbance (6) Cerebral aneurysm SNOMED Code(s): 309953387 ICD Code: I67.1 - CEREBRAL ANEURYSM, NONRUPTURED Status: Chronic Priority: Low (7) S/P placement of cardiac pacemaker SNOMED Code(s): 103206141, 540580439, 563325438 ICD Code: Z95.0 - PRESENCE OF CARDIAC PACEMAKER Status: Chronic Priority: Low - Patient Summary/Data Consults: Consultations 03/19/20 10:52 Consult to Case Management/Nail Mill Worker [CONS] Routine Consult to Spiritual Care [CONS] Routine PT Evaluation and Treatment [CONS] Routine 03/23/20 08:00 Consult to Occupational Therapy [OT Evaluation and Treatment] [CONS] Routine Hospital Course: Assessment on day of admission: 03/19/2020 * 84 yo male who reports to ED via ambulance with multiple falls and generalized weakness * Per , patient had been ambulating without difficulty until about a week ago * Per , patient is legally blind * Workup in ED basically unremarkable, however patient 2+ assist and unable to go home * Patient lives with in [place]. * Denies any injury or pain with falls * Denies any infectious symptoms * 12-lead EKG shows A-V paced rhythm * reports pacemaker was placed recently - well healing wound noted on left chest * CXR and CTA both show nothing acute. * Head CT negative for anything acute. There is some evidence of remote ischemic changes. * Labs in ED: * WBC 6.156 * Hgb 15.0 * Plt count 170 * Neutrophils 63% * D-Dimer 2.10 * Sodium 136 * Potassium 4.1 * Anion Gap 15.1 * BUN 18 * Creatinine 1.3 * GFR 52 * Magnesium 2.0 * Troponin 0.055 * Albumin 3.5 * TSH 1.778 * UA negative * SARS-CoV-2 screen negative * Vital signs stable 03/20/2020 * Remains weak but otherwise no complaints * Very large BM today per nursing * Labs show creatinine of 1.4 and GFR of 48 (slightly worse) * Electrolytes WNL * Vitamin B12, Folic acid, CRP all WNL * Vitamin D slightly low at 27.9 - supplementation started * A1C 6.0% * RPR negative * Working with PT/OT * No nursing or patient concerns. * Vital signs stable * Remains off of oxygen 03/21/2020 The patient has a pacemaker in place and therefore is not able to undergo an MRI. We will consider CTA of the head in place. Patient still remains confused and one-to-one sitter will be continued. We will continue to monitor the patient's vital signs and if he becomes hypoxic we will institute oxygen therapy. Laboratory studies have been ordered. We will continue to monitor and replace electrolytes as necessary. Currently awaiting placement. We will continue with PT OT. Will be monitored for falls. 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 The patient has been noticed to have a previous aneurysm. 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 The infarcts are in the frontal lobe and likely contributing to the patient's overall confusion. Patient will be maintained on fall risk. The patient will likely need to have long-term placement. Repeat laboratory studies have been ordered. Patient will be maintained on oxygen if necessary to keep his saturations above 90%. He will be continued on his appropriate ADA diet. 03/23/2020 The patient remains confused. The aneurysm that had been noted previously on t he CT angiogram is chronic in nature and inoperable. This is likely the source of the patient's multiinfarct noted in his frontal lobe. This likely represents that the patient has worsening multi-infarct dementia. 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 The patient would be appropriate for consideration with placement likely in a skilled facility. Today he is currently in a full CODE STATUS and this will be honored. The patient should also ambulate with assistance. PT OT has also been ordered for the patient. He will be kept on the appropriate ADA diet. Patient will also be maintained on oxygen to keep his saturations above 90%. 03/24/20 Remains confused. Is having anxiety regarding intermediate placement. He is worried that he has not been to be able to return home. Needs continued encouragement that if he gets stronger he may be able to return home as his home is handicap accessible. Also having anxiety regarding dementia diagnosis. Vital signs remained stable and he is 94 to 98% on room air. CBC was unremarkable however his sodium went from 132 down to 130. The patient's weight is up from admit. In the last 24 hours he is +1290 on fluid intake. Upon further investigation, it was discovered that patient was supposed to be taking Lasix 40 mg daily. This was not on his home medication list. We called Dr. Larose's office and she verified that this indeed was the dosage of Lasix he is supposed to be taking daily. This will be restarted today. Hopefully with this addition his sodium level will begin to go back up. PT and OT will be working with the patient as well. 03/25/20 He is still confused today. When I rounded on him he was very fixated on the man upstairs. He was worried that the man was going to come to his room and he was going to have to answer to him. He was not oriented to place and when I did reorient him and tell him that there is no upstairs he was not excepting of this. Was also very anxious today regarding his bowels, telling me he has not had a bowel movement. Checked with nursing staff he has indeed had a bowel movement today. Vital signs remained stable and he is 92 to 97% on room air. Sodium is 129 that is down from 130, BUN is 21 and that is up from 19, creatinine 1.4 that is up from 1.2, GFR is 48 today and that is down from 58. Home Lasix dose was restarted yesterday. Patient's blood pressures seem to be tolerating that nicely. He still is consuming a large amount of water. And hopefully this will even out with the start of the Lasix as well as increase the sodium level. Will consider a fluid restriction if the sodium level does not start to climb back up. Patient is otherwise stable for discharge to the intermediate. 03/26/20 Confused today and more anxious about going to the intermediate. Vital signs remained stable. Sodium is 127 today down from 129 yesterday with the addition of his home Lasix restarted. BUN 26,Creatinine 1.5, GFR 44. The patient had 1350 out in the last 24 hours. He is +210 mL's on fluid. Urine Osmo is 223, random urine sodium is 29, serum osmole is 278, and BN P is 356. After consult with Dr. Ortiz, we agreed to place the patient on a 1200 mL fluid restriction. Echocardiogram obtained from 81 shows that the left ventricular cavity size is normal. Left ventricular septal wall thickness was mildly increased. Left ventricular posterior wall thickness was normal. Left ventricular systolic function appears normal. Left ventricular ejection fraction is 50 to 55% by visual estimation. There are no obvious regional wall motion abnormalities, however not all daly could be adequately vi sualized. Abnormal paradoxical septal motion, consistent with left bundle branch block. Impaired left ventricular relaxation with elevated left ventricular filling pressuresgrade 1 diastolic dysfunction. Trace of aortic insufficiency. 03/27/20 Still confused today and more anxious. Was not able to recall that he had already eaten breakfast. Sodium is up to 132 today. Urine Osmo is 215, random urine sodium 38, serum Osmo 290. These results lead me to believe that he is in hypovolemic hyponatremia, so I will give him 1 more liter of IV fluids at a rate of 100 mL's per hour. I will continue his 1200 mL fluid restriction. His CBC was unremarkable today. BUN is 33 and creatinine is 1.4. Lasix was discontinued yesterday. - Plan Plan:: I have seen and examined the patient independent of nurse practitioner Hilaria Espinoza and I have discussed the case with her. I have reviewed and agree with the assessment and plan as outlined for this patient by her. Discharge delayed due to insurance issues. Please see orders. 03/26/20 Patient accepted to [facility], however discharge is on hold at this time due to low sodium levels. Lasix will be discontinued. Will receive 1 L of normal saline over 4 hours. Random urine sodium and urine osmo will be collected in the morning. Repeat labs in the a.m. and correct any electrolyte abnormalities. Continue fluid restriction of 1200 mL's. Continue Lovenox for DVT prophylaxis. Will transfer to the intermediate when stable. 03/27/20 Recheck labs in the a.m. Continue with 1200 mL fluid restriction. PT and OT to continue working with the patient. Give 1 L of normal saline today at 100 mL's per hour. Continue Lovenox for DVT prophylaxis. Plan for transfer to [facility] on Monday pending lab work and vital signs remained stable. 03/28/2020 The patient had originally been admitted secondary to gait disturbance as well as failure to thrive. He is currently awaiting placement. The patient also has a diagnosis of multi-infarct dementia. Physical therapy will continue with the patient evaluation. I am concerned that the patient has apparently developed some depression at his inability to do things for himself. We will continue to watch this and possibly will need to have a psychiatric consult. CBC, CMP have been ordered. The patient will continue to be encouraged to set up with distance. Recommend continued use of incentive spirometer. 03/29/2020 The patient has been voicing some concerns with his inability to feed himself. This is led to depression. He is currently on Wellbutrin 150 mg p.o. daily. I have ordered a consult with Dr. Reyez. I have ordered fleets enema x1 to help with the patient's constipation. Currently awaiting placement. Physical therapy will continue. I have ordered laboratory testings for tomorrow to include CBC, CMP. Patient also has been encouraged to ambulate with assistance. We will continue with DVT prophylaxis. 03/30/20 The patient will be discharged to [facility]. We will continue with PT OT. Patient will be assisted at mealtime as his macular degeneration is challenging. Dr. Reyez will be consulted as an outpatient regarding his depression, but his would like to check with her insurance to make sure that this is covered prior to proceeding. Sodium level today is back up to 138, so we will continue him on a 1200 mL fluid restriction at the intermediate. His Lasix will not be restarted. He can follow-up with his primary care physician regarding this. Creatinine is at 1.4 today, and this appears to be his baseline. All other lab work is unremarkable and his vital signs are stable. - Patient Instructions Diet: Regular Diet as Tolerated, Fluid Restriction Fluid Restriction: 1200 Activity: As Tolerated Other/Special Instructions: Patient is to be discharged to [facility]. Patient is to be a daily weight and is on a 1200 mL fluid restriction. Please keep a log of his weight and blood pressures to take to his follow-up appointment with his provider. Consult Dr. Reyez as an outpatient. Follow-up with primary care provider in 1 week. - Discharge Plan *PRESCRIPTION DRUG MONITORING PROGRAM REVIEWED*: Not Applicable *COPY OF PRESCRIPTION DRUG MONITORING REPORT IN PATIENT EMMETT: Not Applicable Prescriptions/Med Rec: Cholecalciferol (Vitamin D3) [Vitamin D3] 5,000 unit PO DAILY #20 cap Home Medications: Home Meds Aspirin [[place] Aspirin] 81 mg PO DAILY 03/19/20 [History] Docusate Sodium [Stool Softener] 100 mg PO BID 03/19/20 [History] Ezetimibe 10 mg PO DAILY 03/19/20 [History] Fenofibrate Nanocrystallized [Fenofibrate] 145 mg PO DAILY 03/19/20 [History] Fluticasone Propionate [Flonase] 50 mcg NS DAILY 03/19/20 [History] Isosorbide Mononitrate 20 mg PO BID 03/19/20 [History] Levothyroxine 112 mcg PO DAILY 03/19/20 [History] Olmesartan Medoxomil 20 mg PO DAILY 03/19/20 [History] Propylene Glycol/PEG 400/Pf [Systane 0.3-0.4% Eye Drop] 1 drop EYEBOTH DAILY 03/19/20 [History] Tamsulosin [Flomax] 0.4 mg PO DAILY 03/19/20 [History] buPROPion HCL [Bupropion HCl Sr] 150 mg PO DAILY 03/19/20 [History] Cholecalciferol (Vitamin D3) [Vitamin D3] 5,000 unit PO DAILY #20 cap 03/25/20 [Rx] Oxygen Therapy Mode: Room Air Patient Handouts: Heart Failure Action Plan, Heart Failure, Diagnosis, Dementia, [id number] Referrals: Krista Larose MD [Primary Care Provider] - 04/06/20 2:00 pm (Please follow up with Dr. Larose on April 06 at 2:00.) Stevenson Parmar MD [Ordering Only Provider] - - Discharge Summary/Plan Comment DC Time >30 min.: Yes (residential admit) - General Info Date of Service: 03/30/20 Admission Dx/Problem (Free Text: Admission Diagnosis/Problem Admission Diagnosis/Problem Failure to thrive Functional Status: Reports: Pain Controlled, Tolerating Diet, Ambulating (With the assistance of nursing staff and a walker), Urinating (Continent at times) - Review of Systems General: Reports: No Symptoms HEENT: Reports: Other (Macular degeneration) Pulmonary: Reports: No Symptoms Cardiovascular: Reports: No Symptoms Gastrointestinal: Reports: No Symptoms Genitourinary: Reports: Incontinence Musculoskeletal: Reports: No Symptoms Skin: Reports: No Symptoms Neurological: Reports: Confusion Psychiatric: Reports: Confusion, Depression, Anxiety - Patient Data Vitals - Most Recent: Last Vital Signs Temp 97.9 F 03/30/20 08:01 Pulse 61 03/30/20 08:01 Resp 18 03/30/20 08:01 BP 153/64 H 03/30/20 08:52 Pulse Ox 99 03/30/20 08:01 Orthostatic Blood Pressure [ 80/51 Standing] Orthostatic Blood Pressure [ 97/58 Supine] Weight - Most Recent: 99.79 kg I&O - Last 24 hours: Intake & Output 03/29/20 03/30/20 03/30/20 22:59 06:59 14:59 Intake Total 495 100 240 Output Total 550 700 Balance -55 -600 240 Lab Results - Last 24 hrs: Laboratory Results - last 24 hr 03/30/20 03/30/20 03/30/20 Range/Units 06:05 06:10 06:10 WBC 4.50 (4.23-9.07) K/mm3 RBC 4.89 (4.63-6.08) M/mm3 Hgb 13.9 (13.7-17.5) gm/dl Hct 43.7 (40.1-51.0) % MCV 89.4 (79.0-92.2) fl MCH 28.4 (25.7-32.2) pg MCHC 31.8 L (32.2-35.5) g/dl RDW Std Deviation 48.6 H (35.1-43.9) fL Plt Count 159 L (163-337) K/mm3 MPV 9.1 L (9.4-12.3) fl Neut % (Auto) 50.3 (34.0-67.9) % Lymph % (Auto) 30.4 (21.8-53.1) % [place] % (Auto) 15.8 H (5.3-12.2) % Eos % (Auto) 3.1 (0.8-7.0) Baso % (Auto) 0.2 (0.1-1.2) % Neut # (Auto) 2.26 (1.78-5.38) K/mm3 Lymph # (Auto) 1.37 (1.32-3.57) K/mm3 [place] # (Auto) 0.71 (0.30-0.82) K/mm3 Eos # (Auto) 0.14 (0.04-0.54) K/mm3 Baso # (Auto) 0.01 (0.01-0.08) K/mm3 Manual Slide Review Abnormal smear Sodium 138 (136-145) mEq/L Potassium 4.3 (3.5-5.1) mEq/L Chloride 103 (98-107) mEq/L Carbon Dioxide 24 (21-32) mEq/L Anion Gap 15.3 H (5-15) BUN 32 H (7-18) mg/dL Creatinine 1.4 H (0.7-1.3) mg/dL Est Cr Clr Drug Dosing 39.83 mL/min Estimated GFR (MDRD) 48 (>60) mL/min BUN/Creatinine Ratio 22.9 H (14-18) Glucose 106 (83-115) mg/dL Calcium 8.8 (8.5-10.1) mg/dL SARS-CoV-2 RNA (OSMAR) Negative (NEGATIVE) Med Orders - Current: Current Medications Acetaminophen (Tylenol) 650 mg PO Q4H PRN PRN Reason: Pain (Mild 1-3)/fever Last Admin: 03/28/20 08:38 Dose: 650 mg Documented by: Artificial Tears (Refresh Liquigel 1%) 0 ml EYEBOTH DAILY ODILIA Last Admin: 03/30/20 08:57 Dose: 1 drop Documented by: Aspirin (Aspirin) 81 mg PO DAILY [facility] Last Admin: 03/30/20 08:52 Dose: 81 mg Documented by: Bupropion HCl (Wellbutrin Sr) 150 mg PO DAILY [facility] Last Admin: 03/30/20 08:55 Dose: 150 mg Documented by: Cholecalciferol (Vitamin D3) 5,000 unit PO DAILY [facility] Last Admin: 03/30/20 08:55 Dose: 5,000 unit Documented by: Docusate Sodium (Colace) 100 mg PO BID PRN PRN Reason: Constipation Last Admin: 03/28/20 20:04 Dose: 100 mg Documented by: Ezetimibe (Zetia) 10 mg PO DAILY [facility] Last Admin: 03/29/20 09:13 Dose: 10 mg Documented by: Enoxaparin Sodium (Lovenox) 40 mg SUBCUT DAILY [facility] Last Admin: 03/30/20 08:58 Dose: 40 mg Documented by: Fenofibrate (Tricor) 145 mg PO DAILY [facility] Last Admin: 03/30/20 08:56 Dose: 145 mg Documented by: Fluticasone Propionate (Flonase) 0 gm NASBOTH DAILY [facility] Last Admin: 03/30/20 08:56 Dose: 1 spray Documented by: Levothyroxine Sodium (Levothyroxine) 112 mcg PO ACBREAKFAST [facility] Last Admin: 03/30/20 06:03 Dose: 112 mcg Documented by: Losartan Potassium (Cozaar) 50 mg PO DAILY [facility] Last Admin: 03/30/20 08:52 Dose: 50 mg Documented by: Ondansetron HCl (Zofran) 4 mg IV Q6H PRN PRN Reason: Nausea/Vomiting Isosorbide Mononitrate 20 Mg Ptom 0 each PO BID [facility] Last Admin: 03/29/20 20:02 Dose: 1 each Documented by: Tamsulosin HCl (Flomax) 0.4 mg PO DAILY [facility] Last Admin: 03/30/20 08:54 Dose: 0.4 mg Documented by: Discontinued Medications Docusate Sodium (Colace) 100 mg PO BID [facility] Last Admin: 03/20/20 08:34 Dose: 100 mg Documented by: Furosemide (Lasix) 40 mg PO DAILY [facility] Last Admin: 10/15/20 08:07 Dose: 40 mg Documented by: Sodium Chloride (Normal Saline) 100 mls @ 75 mls/hr IV ASDIRECTED [facility] Last Admin: 03/19/20 09:02 Dose: 75 mls/hr Documented by: Sodium Chloride (Normal Saline) 1,000 mls @ 250 mls/hr IV ONETIME ONE Stop: 03/26/20 18:21 Last Admin: 03/26/20 15:01 Dose: 250 mls/hr Documented by: Sodium Chloride (Normal Saline) 1,000 mls @ 100 mls/hr IV ASDIRECTED [facility] Stop: 03/27/20 19:29 Last Admin: 03/27/20 09:43 Dose: 100 mls/hr Documented by: Iopamidol (Isovue-370 (76%)) 50 ml IVPUSH ONETIME ONE Stop: 03/19/20 08:56 Last Admin: 03/19/20 09:02 Dose: 50 ml Documented by: Iopamidol (Isovue-370 (76%)) 100 ml IVPUSH ONETIME ONE Stop: 03/19/20 08:56 Last Admin: 03/19/20 09:02 Dose: 100 ml Documented by: Isosorbide Dinitrate (Isordil) 20 mg PO ONETIME ONE Stop: 03/19/20 20:58 Last Admin: 03/19/20 21:26 Dose: 20 mg Documented by: Isosorbide Mononitrate 20 Mg Ptom 0 each PO BID [facility] Last Admin: 03/22/20 09:59 Dose: Not Given Documented by: Senna (Senna) 17.2 mg PO BID [facility] Last Admin: 03/21/20 01:21 Dose: Not Given Documented by: Sodium Chloride (Saline Flush) 10 ml FLUSH ONETIME PRN PRN Reason: IV FLUSH Last Admin: 03/19/20 09:02 Dose: 10 ml Documented by: - Exam Quality Assessment: Denies: Supplemental Oxygen, DVT Prophylaxis General: Reports: Alert, Cooperative, No Acute Distress HEENT: Reports: Mucous Membr. Moist/[place] Neck: Reports: Supple, Trachea Midline. Denies: Lymphadenopathy Lungs: Reports: Clear to Auscultation, Normal Respiratory Effort Cardiovascular: Reports: Regular Rate, Regular Rhythm, No Murmurs GI/Abdominal Exam: Normal Bowel Sounds, Soft, Non-Tender, No Distention (Male) Exam: Deferred Rectal (Males) Exam: Deferred Back Exam: Reports: Normal Inspection, Full Range of Motion Extremities: Normal Inspection, Normal Range of Motion, Non-Tender, No Pedal Edema, Normal Capillary Refill Skin: Reports: Warm, Dry, Intact Neurological: Reports: No New Focal Deficit Psy/Mental Status: Reports: Alert, Anxious, Depressed <Derick Tamayo - Last Filed: 03/30/20 17:26> Discharge Summary - Referral to Home Health Primary Care Physician: Krista Larose MD - Discharge Diagnosis/Problem(s) (1) Depression SNOMED Code(s): 80687717 ICD Code: F32.9 - MAJOR DEPRESSIVE DISORDER, SINGLE EPISODE, UNSPECIFIED Status: Chronic Priority: Low Qualifiers: Depression Type: reactive depression Qualified Code(s): F32.9 - Major depressive disorder, single episode, unspecified (2) Multi-infarct dementia SNOMED Code(s): 89479085 ICD Code: F01.50 - VASCULAR DEMENTIA WITHOUT BEHAVIORAL DISTURBANCE Status: Acute Priority: High Qualifiers: Dementia behavioral disturbance: without behavioral disturbance Qualified Code(s): F01.50 - Vascular dementia without behavioral disturbance (3) Falls SNOMED Code(s): 1937647, 497790662 ICD Code: W19.XXXA - UNSPECIFIED FALL, INITIAL ENCOUNTER Status: Acute Priority: High Qualifiers: Encounter type: initial encounter Qualified Code(s): W19.XXXA - Unspecified fall, initial encounter (4) Generalized weakness SNOMED Code(s): 24059277 ICD Code: R53.1 - WEAKNESS Status: Acute Priority: High (5) Hospital admission due to social situation SNOMED Code(s): 664600473 ICD Code: Z60.9 - PROBLEM RELATED TO SOCIAL ENVIRONMENT, UNSPECIFIED Status: Acute Priority: High (6) S/P placement of cardiac pacemaker SNOMED Code(s): 615875239, 830326932, 829291204 ICD Code: Z95.0 - PRESENCE OF CARDIAC PACEMAKER Status: Chronic Priority: Low (7) Confusion and disorientation SNOMED Code(s): 63308990, 90971724 ICD Code: R41.0 - DISORIENTATION, UNSPECIFIED Status: Acute Priority: High (8) Cerebral aneurysm SNOMED Code(s): 172800343 ICD Code: I67.1 - CEREBRAL ANEURYSM, NONRUPTURED Status: Chronic Priority: Low - Patient Summary/Data Consults: Consultations 03/19/20 10:52 Consult to Case Management/[employer] Worker [CONS] Routine Consult to Spiritual Care [CONS] Routine PT Evaluation and Treatment [CONS] Routine 03/23/20 08:00 Consult to Occupational Therapy [OT Evaluation and Treatment] [CONS] Routine Hospital Course: I have seen and examined the patient independent of nurse practitioner Hilaria Espinoza and I have discussed the case with her. I have reviewed and agree with the assessment and plan as outlined for this patient by her. Please see orders. - Patient Data Vitals - Most Recent: Last Vital Signs Temp 36.6 C 03/30/20 08:01 Pulse 61 03/30/20 08:01 Resp 18 03/30/20 08:01 BP 153/64 H 03/30/20 08:52 Pulse Ox 99 03/30/20 08:01 Orthostatic Blood Pressure [ 80/51 Standing] Orthostatic Blood Pressure [ 97/58 Supine] I&O - Last 24 hours: Intake & Output 03/30/20 03/30/20 03/30/20 06:59 14:59 22:59 Intake Total 100 240 Output Total 700 Balance -600 240 Lab Results - Last 24 hrs: Laboratory Results - last 24 hr 03/30/20 03/30/20 03/30/20 Range/Units 06:05 06:10 06:10 WBC 4.50 (4.23-9.07) K/mm3 RBC 4.89 (4.63-6.08) M/mm3 Hgb 13.9 (13.7-17.5) gm/dl Hct 43.7 (40.1-51.0) % MCV 89.4 (79.0-92.2) fl MCH 28.4 (25.7-32.2) pg MCHC 31.8 L (32.2-35.5) g/dl RDW Std Deviation 48.6 H (35.1-43.9) fL Plt Count 159 L (163-337) K/mm3 MPV 9.1 L (9.4-12.3) fl Neut % (Auto) 50.3 (34.0-67.9) % Lymph % (Auto) 30.4 (21.8-53.1) % [place] % (Auto) 15.8 H (5.3-12.2) % Eos % (Auto) 3.1 (0.8-7.0) Baso % (Auto) 0.2 (0.1-1.2) % Neut # (Auto) 2.26 (1.78-5.38) K/mm3 Lymph # (Auto) 1.37 (1.32-3.57) K/mm3 [place] # (Auto) 0.71 (0.30-0.82) K/mm3 Eos # (Auto) 0.14 (0.04-0.54) K/mm3 Baso # (Auto) 0.01 (0.01-0.08) K/mm3 Manual Slide Review Abnormal smear Sodium 138 (136-145) mEq/L Potassium 4.3 (3.5-5.1) mEq/L Chloride 103 (98-107) mEq/L Carbon Dioxide 24 (21-32) mEq/L Anion Gap 15.3 H (5-15) BUN 32 H (7-18) mg/dL Creatinine 1.4 H (0.7-1.3) mg/dL Est Cr Clr Drug Dosing 39.83 mL/min Estimated GFR (MDRD) 48 (>60) mL/min BUN/Creatinine Ratio 22.9 H (14-18) Glucose 106 (83-115) mg/dL Calcium 8.8 (8.5-10.1) mg/dL SARS-CoV-2 RNA (OSMAR) Negative (NEGATIVE) Med Orders - Current: Current Medications Discontinued Medications Acetaminophen (Tylenol) 650 mg PO Q4H PRN PRN Reason: Pain (Mild 1-3)/fever Last Admin: 03/28/20 08:38 Dose: 650 mg Documented by: Artificial Tears (Refresh Liquigel 1%) 0 ml EYEBOTH DAILY [facility] Last Admin: 03/30/20 08:57 Dose: 1 drop Documented by: Aspirin (Aspirin) 81 mg PO DAILY [facility] Last Admin: 03/30/20 08:52 Dose: 81 mg Documented by: Bupropion HCl (Wellbutrin Sr) 150 mg PO DAILY [facility] Last Admin: 03/30/20 08:55 Dose: 150 mg Documented by: Cholecalciferol (Vitamin D3) 5,000 unit PO DAILY [facility] Last Admin: 03/30/20 08:55 Dose: 5,000 unit Documented by: Docusate Sodium (Colace) 100 mg PO BID [facility] Last Admin: 03/20/20 08:34 Dose: 100 mg Documented by: Docusate Sodium (Colace) 100 mg PO BID PRN PRN Reason: Constipation Last Admin: 03/28/20 20:04 Dose: 100 mg Documented by: Ezetimibe (Zetia) 10 mg PO DAILY [facility] Last Admin: 03/30/20 08:52 Dose: 10 mg Documented by: Enoxaparin Sodium (Lovenox) 40 mg SUBCUT DAILY [facility] Last Admin: 03/30/20 08:58 Dose: 40 mg Documented by: Fenofibrate (Tricor) 145 mg PO DAILY [facility] Last Admin: 03/30/20 08:56 Dose: 145 mg Documented by: Fluticasone Propionate (Flonase) 0 gm NASBOTH DAILY [facility] Last Admin: 03/30/20 08:56 Dose: 1 spray Documented by: Furosemide (Lasix) 40 mg PO DAILY [facility] Last Admin: 03/26/20 08:07 Dose: 40 mg Documented by: Sodium Chloride (Normal Saline) 100 mls @ 75 mls/hr IV ASDIRECTED [facility] Last Admin: 03/19/20 09:02 Dose: 75 mls/hr Documented by: Sodium Chloride (Normal Saline) 1,000 mls @ 250 mls/hr IV ONETIME ONE Stop: 03/26/20 18:21 Last Admin: 03/26/20 15:01 Dose: 250 mls/hr Documented by: Sodium Chloride (Normal Saline) 1,000 mls @ 100 mls/hr IV ASDIRECTED [facility] Stop: 03/27/20 19:29 Last Admin: 03/27/20 09:43 Dose: 100 mls/hr Documented by: Iopamidol (Isovue-370 (76%)) 50 ml IVPUSH ONETIME ONE Stop: 03/19/20 08:56 Last Admin: 03/19/20 09:02 Dose: 50 ml Documented by: Iopamidol (Isovue-370 (76%)) 100 ml IVPUSH ONETIME ONE Stop: 03/19/20 08:56 Last Admin: 03/19/20 09:02 Dose: 100 ml Documented by: Isosorbide Dinitrate (Isordil) 20 mg PO ONETIME ONE Stop: 03/19/20 20:58 Last Admin: 03/19/20 21:26 Dose: 20 mg Documented by: Levothyroxine Sodium (Levothyroxine) 112 mcg PO ACBREAKFAST [facility] Last Admin: 03/30/20 06:03 Dose: 112 mcg Documented by: Losartan Potassium (Cozaar) 50 mg PO DAILY [facility] Last Admin: 03/30/20 08:52 Dose: 50 mg Documented by: Ondansetron HCl (Zofran) 4 mg IV Q6H PRN PRN Reason: Nausea/Vomiting Isosorbide Mononitrate 20 Mg Ptom 0 each PO BID [facility] Last Admin: 03/22/20 09:59 Dose: Not Given Documented by: Isosorbide Mononitrate 20 Mg Ptom 0 each PO BID [facility] Last Admin: 03/30/20 08:52 Dose: 1 each Documented by: Senna (Senna) 17.2 mg PO BID [facility] Last Admin: 03/21/20 01:21 Dose: Not Given Documented by: Sodium Chloride (Saline Flush) 10 ml FLUSH ONETIME PRN PRN Reason: IV FLUSH Last Admin: 03/19/20 09:02 Dose: 10 ml Documented by: Tamsulosin HCl (Flomax) 0.4 mg PO DAILY [facility] Last Admin: 03/30/20 08:54 Dose: 0.4 mg Documented by:
== END 2020-03-30 13:06 | DRG 948 ==
LOC: JD.ED 06:06 → JD.MS 10:52
PROVIDERS: ADMIT Family Medicine; ATTEND Family Medicine
DX: R53.1 Weakness (principal); R41.0 Disorientation, unspecified; W19.XXXA Unspecified fall, initial encounter; Z91.81 History of falling; Z60.9 Problem related to social environment, unspecified; F01.50 Vascular dementia, unspecified severity, without behavioral disturbance, psychotic disturbance, mood disturbance, and anxiety; I67.1 Cerebral aneurysm, nonruptured; I25.10 Atherosclerotic heart disease of native coronary artery without angina pectoris; E78.00 Pure hypercholesterolemia, unspecified; I11.0 Hypertensive heart disease with heart failure; I50.9 Heart failure, unspecified; E78.5 Hyperlipidemia, unspecified; J44.9 Chronic obstructive pulmonary disease, unspecified; N40.0 Benign prostatic hyperplasia without lower urinary tract symptoms; F32.9 Major depressive disorder, single episode, unspecified; Z88.6 Allergy status to analgesic agent; E03.9 Hypothyroidism, unspecified; R73.03 Prediabetes; H54.8 Legal blindness, as defined in USA; F41.9 Anxiety disorder, unspecified; K59.00 Constipation, unspecified; F03.90 Unspecified dementia, unspecified severity, without behavioral disturbance, psychotic disturbance, mood disturbance, and anxiety; Z20.828 Contact with and (suspected) exposure to other viral communicable diseases; H35.30 Unspecified macular degeneration; R29.6 Repeated falls; Z79.82 Long term (current) use of aspirin; Z95.1 Presence of aortocoronary bypass graft; Z95.0 Presence of cardiac pacemaker; I25.2 Old myocardial infarction; Z87.891 Personal history of nicotine dependence; Z79.890 Hormone replacement therapy; Z79.899 Other long term (current) drug therapy; Z88.5 Allergy status to narcotic agent; Z88.8 Allergy status to other drugs, medicaments and biological substances
CPT/HCPCS: 36415; 70450; 71046; 71275; 80053; 81001; 82306; 82607; 82746; 83036; 83735; 84100; 84145; 84443; 84484; 85007; 85027; 85379; 86140; 87040 ×2; 93005; 96360; 99285; Q9967 ×2; U0002; 70496; 73560-LT; 80048; 83880; 83930; 83935; 84300; 85025; 86592; 97110-GP; 97112-GP; 97116-GP; 97162-GP; 97530-GP; A9270-GY; J1650; J7030